=== PATIENT | female | born 1950 | race Caucasian/White ===

== ENCOUNTER 2017-05-01 17:40 | Inpatient (IN) | payer OTHER ==
[2017-05-01 18:37] LABS: BASOPHILS # (AUTO) 0.1 X10^3/uL (0.0-0.1); BASOPHILS % (AUTO) 1.4 % (0.2-1.0); EOSINOPHILS # (AUTO) 0.1 x10^3/uL (0.0-0.2); EOSINOPHILS % (AUTO) 2.7 % (0.9-2.9); HEMATOCRIT 34.2 % (36.0-47.0); HEMOGLOBIN 11.5 g/dL (12.0-16.0); LYMPHOCYTES # (AUTO) 1.3 X10^3/uL (1.3-2.9); MEAN CORPUSCULAR HEMOGLOBIN 29.6 pg (27.0-34.0); MEAN CORPUSCULAR HGB CONC 33.5 g/dL (33.0-35.0); MEAN CORPUSCULAR VOLUME 88.2 fL (80.0-100.0); MEAN PLATELET VOLUME 9.1 fL (7.4-11.0); MONOCYTES # (AUTO) 0.7 x10^3/uL (0.3-0.8); MONOCYTES % (AUTO) 13.4 % (0.0-13.0); NEUTROPHILS # (AUTO) 2.9 x10^3/uL (2.2-4.8); NEUTROPHILS % (AUTO) 57.5 % (42.0-75.0); PLATELET COUNT 84 X10^3/uL (150.0-450.0); RED BLOOD COUNT 3.88 X10^6/uL (3.5-5.4); RED CELL DISTRIBUTION WIDTH 14.8 % (11.6-16.5); WHITE BLOOD COUNT 5.1 X10^3/uL (3.6-10.0)
--- NOTE | 2017-05-01 18:52 | RAD ---
Examination: AP chest History: Low heart rate Comparison reference: 08/14/2016 Findings: Continued moderate cardiomegaly with pacemaker. Mild central pulmonary vascular congestion although interval improvement in this process has occurred since prior study. There is no evidence fo r consolidation, or pleural fluid or pneumothorax. Impression: Cardiomegaly, pacemaker, postsurgical findings, pulmonary vascular congestion. Reported By:
[2017-05-01 19:11] LABS: BLOOD UREA NITROGEN 24 mg/dL (7-18); CALCIUM 8.9 mg/dL (8.5-10.1); CARBON DIOXIDE 28.5 mmol/L (21-32); CHLORIDE 105 mmol/L (98-107); CREATININE 1.29 mg/dL (0.55-1.02); SODIUM 143 mmol/L (136-145); eGFR BLACK RACES 53 (>60); eGFR NON BLACK RACES 44 (>60)
--- NOTE | 2017-05-01 19:12 | DR.SOBA ---
HPI - Primary Care Physician Primary Care Physician: DANA - Complaints Chief Complaint:: PT. C/O SHORTNESS OF BREATH X 1 WEEK AND PAIN UNDER LEFT BREAST. PT. STATES SHE HAS NOT HAD ANY PAIN X 3 DAYS. PT. SHORT OF BREATH AT REST AND UPON EXERTION. - Source History Provided: Patient - Mode of Arrival Mode of Arrival: Ambulatory - Timing Onset of Chief Complaint: 04/24/17 PMH - PMH Past Medical History: Yes Past Medical History: CHF, COPD, Coronary Artery Disease, CVA, [place] Past Surgical History: Yes Surgical History: CABG/Valve Surgery, Other Past Surgical History Comment: PACEMAKER/DEFIBILLATOR - Family History History of Family Medical Conditions: Yes Family Medical History: Diabetes Mellitus, Coronary Artery Disease, Heart Failure - Social History Does patient currently use any type of tobacco product: No Have you used tobacco products in the last 12 months: No Type of Tobacco Use: None Does any household member use tobacco: No Alcohol Use: Rarely Do you use any recreational Drugs:: No Lives With: Alone Lives Where: Home - infectious screening In the last 2 months have you had wt loss of >10#?: NO Have you had fever, night sweats or hemotysis?: No Have you traveled outside the country in the last 6 months?: No Isolation: Standard PE - Vital Signs Vitals: Temperature 97.6 F Pulse Rate [Apical] 45 Pulse Rate 46 Respiratory Rate 30 Blood Pressure [Left Arm] 140/66 Blood Pressure [Right Arm] 103/63 Blood Pressure 160/60 O2 Sat by Pulse Oximetry 97 ROR - Labs Reviewed Result Diagrams: 05/01/17 18:25 05/01/17 18:25 Laboratory: WBC 5.1 X10^3/uL (3.6-10.0) 05/01/17 18:25 RBC 3.88 X10^6/uL (3.5-5.4) 05/01/17 18:25 Hgb 11.5 g/dL (12.0-16.0) L 05/01/17 18:25 Hct 34.2 % (36.0-47.0) L 05/01/17 18:25 MCV 88.2 fL (80.0-100.0) 05/01/17 18:25 MCH 29.6 pg (27.0-34.0) 05/01/17 18:25 MCHC 33.5 g/dL (33.0-35.0) 05/01/17 18:25 RDW 14.8 % (11.6-16.5) 05/01/17 18:25 Plt Count 84 X10^3/uL (150.0-450.0) L 05/01/17 18:25 MPV 9.1 fL (7.4-11.0) 05/01/17 18:25 Neut % 57.5 % (42.0-75.0) 05/01/17 18:25 Lymph % 25.0 % (21.0-51.0) 05/01/17 18:25 [place] % 13.4 % (0.0-13.0) H 05/01/17 18:25 Eos % 2.7 % (0.9-2.9) 05/01/17 18:25 Baso % 1.4 % (0.2-1.0) H 05/01/17 18:25 Neut # 2.9 x10^3/uL (2.2-4.8) 05/01/17 18:25 Lymph # 1.3 X10^3/uL (1.3-2.9) 05/01/17 18:25 [place] # 0.7 x10^3/uL (0.3-0.8) 05/01/17 18:25 Eos # 0.1 x10^3/uL (0.0-0.2) 05/01/17 18:25 Baso # 0.1 X10^3/uL (0.0-0.1) 05/01/17 18:25 Absolute Nucleated RBC 0.0 /100WBC 05/01/17 18:25 INR Target Range - 05/01/17 18:25 INR 1.93 (0.8-1.3) H 05/01/17 18:25 PTT 42.9 SECONDS (22.9-36.5) H 05/01/17 18:25 PTT Comment - 05/01/17 18:25 - Discharge Plan Condition: Stable - Follow ups/Referrals Follow ups/Referrals: PHILL CORTEZ [Primary Care Provider] - 3 days - Instructions
[2017-05-01 19:32] LABS: BILIRUBIN,URINE NEGATIVE (NEGATIVE); BLOOD/HEMOGLOBIN,URINE 3+ (NEGATIVE); GLUCOSE, URINE NEGATIVE (NEGATIVE); KETONES,URINE NEGATIVE (NEGATIVE); LEUKOCYTE ESTERASE ,URINE 1+ (NEGATIVE); NITRITES,URINE NEGATIVE (NEGATIVE); PROTEIN,URINE 3+ (NEGATIVE); UROBILINOGEN,URINE 3+ (NORMAL)
[2017-05-01 19:52] LABS: APPEARANCE,URINE HAZY (CLEAR); COLOR,URINE DARK YELLOW (YELLOW)
[2017-05-01 20:10] LABS: BACTERIA,URINE 2+ /HPF (NEGATIVE); SQUAMOUS EPITHELIAL CELL,UR FEW /HPF (NEGATIVE)
[2017-05-01 21:34] LABS: CREATINE KINASE 98 Units/L (26-192)
[2017-05-01 21:35] LABS: CREATINE KINASE MB < 1.0 ng/mL (0-4.0)
[2017-05-01 21:42] LABS: ALANINE AMINOTRANSFERASE < 6 Units/L (12-78); ALKALINE PHOSPHATASE 150 Units/L (46-116); ASPARTATE AMINO TRANSFERASE 33 Units/L (15-37); TOTAL PROTEIN 7.2 g/dL (6.4-8.2)
[2017-05-01] MEDS ORDERED: LASIX IVP ONE (21:59)
[2017-05-01] MEDS ORDERED: LASIX ONE (22:14)
[2017-05-01 23:38] VITALS: BMI 25.8
[2017-05-02 01:42] LABS: CKMB % 1.3 % (<4); CREATINE KINASE 75 Units/L (26-192); CREATINE KINASE MB < 1.0 ng/mL (0-4.0); TROPONIN I < 0.02 ng/mL (0-1.5)
[2017-05-02 07:09] LABS: BASOPHILS # (AUTO) 0.1 X10^3/uL (0.0-0.1); BASOPHILS % (AUTO) 1.6 % (0.2-1.0); EOSINOPHILS # (AUTO) 0.2 x10^3/uL (0.0-0.2); EOSINOPHILS % (AUTO) 4.1 % (0.9-2.9); HEMATOCRIT 32.5 % (36.0-47.0); HEMOGLOBIN 11.1 g/dL (12.0-16.0); LYMPHOCYTES # (AUTO) 1.1 X10^3/uL (1.3-2.9); LYMPHOCYTES % (AUTO) 29.2 % (21.0-51.0); MEAN CORPUSCULAR HEMOGLOBIN 29.8 pg (27.0-34.0); MEAN CORPUSCULAR VOLUME 87.6 fL (80.0-100.0); MEAN PLATELET VOLUME 9.4 fL (7.4-11.0); MONOCYTES # (AUTO) 0.6 x10^3/uL (0.3-0.8); MONOCYTES % (AUTO) 14.3 % (0.0-13.0); NEUTROPHILS % (AUTO) 50.8 % (42.0-75.0); PLATELET COUNT 70 X10^3/uL (150.0-450.0); RED BLOOD COUNT 3.71 X10^6/uL (3.5-5.4); RED CELL DISTRIBUTION WIDTH 14.6 % (11.6-16.5); WHITE BLOOD COUNT 3.9 X10^3/uL (3.6-10.0)
[2017-05-02 07:30] LABS: BLOOD UREA NITROGEN 22 mg/dL (7-18); CALCIUM 8.6 mg/dL (8.5-10.1); CHLORIDE 105 mmol/L (98-107); CREATININE 1.14 mg/dL (0.55-1.02); SODIUM 142 mmol/L (136-145); eGFR BLACK RACES > 60 (>60); eGFR NON BLACK RACES 50 (>60)
[2017-05-02 08:19] LABS: ALANINE AMINOTRANSFERASE 9 Units/L (12-78); ALBUMIN 3.6 g/dL (3.4-5.0); ALKALINE PHOSPHATASE 133 Units/L (46-116); ASPARTATE AMINO TRANSFERASE 25 Units/L (15-37); CKMB % 1.5 % (<4); CREATINE KINASE 65 Units/L (26-192); CREATINE KINASE MB < 1.0 ng/mL (0-4.0); TOTAL PROTEIN 6.4 g/dL (6.4-8.2); TROPONIN I < 0.02 ng/mL (0-1.5)
[2017-05-02] MEDS ORDERED: ROCEPHIN VIAL 1 GM 1 GM in NS 50 ML IV + SPIKE MINIBAG* 50 ML IV SCH (09:00)
[2017-05-02] MEDS: LOPRESSOR TAB 25 MG PO SCH ×3 (15:50→20:43)
[2017-05-02] MEDS ORDERED: NS 500 ML IV 500 ML IV PRN (16:07)
[2017-05-02] MEDS ORDERED: NS 500 ML IV 500 ML IV ONE (16:10)
[2017-05-02] MEDS ORDERED: ROCEPHIN 1 GM IV PREMIX 1 GM/50 ML IV.SOLN. IV ONE (16:11)
[2017-05-02] MEDS: ROCEPHIN 1 GM IV PREMIX 1 GM/50 ML IV.SOLN. IV SCH (16:14)
[2017-05-02] MEDS ORDERED: LASIX ONE (20:32)
[2017-05-02] MEDS ORDERED: RESTORIL CAP 15 MG PO PRN (20:35)
[2017-05-02] MEDS: K-DUR TAB 20 MEQ PO SCH (20:39)
[2017-05-02] MEDS: LASIX IVP SCH (20:47)
[2017-05-02] MEDS ORDERED: ZOCOR TAB 20 MG PO SCH (21:00)
[2017-05-02] MEDS ORDERED: COUMADIN TAB 5 MG PO SCH (21:00)
[2017-05-02] MEDS ORDERED: WARFARIN SODIUM 5 MG PO SCH (21:00)
[2017-05-02] MEDS ORDERED: SINEMET (PLAIN) 25/100 MG PO SCH (21:00)
[2017-05-02] MEDS ORDERED: COUMADIN PO SCH (21:00)
[2017-05-03] MEDS: LASIX IVP SCH (06:03)
[2017-05-03 06:15] LABS: BASOPHILS # (AUTO) 0.1 X10^3/uL (0.0-0.1); BASOPHILS % (AUTO) 1.2 % (0.2-1.0); EOSINOPHILS # (AUTO) 0.1 x10^3/uL (0.0-0.2); EOSINOPHILS % (AUTO) 2.9 % (0.9-2.9); HEMATOCRIT 32.5 % (36.0-47.0); HEMOGLOBIN 11.1 g/dL (12.0-16.0); LYMPHOCYTES # (AUTO) 1.2 X10^3/uL (1.3-2.9); LYMPHOCYTES % (AUTO) 24.1 % (21.0-51.0); MEAN CORPUSCULAR HEMOGLOBIN 29.9 pg (27.0-34.0); MEAN CORPUSCULAR HGB CONC 34.1 g/dL (33.0-35.0); MEAN CORPUSCULAR VOLUME 87.8 fL (80.0-100.0); MEAN PLATELET VOLUME 9.5 fL (7.4-11.0); MONOCYTES # (AUTO) 0.6 x10^3/uL (0.3-0.8); MONOCYTES % (AUTO) 12.8 % (0.0-13.0); NEUTROPHILS # (AUTO) 2.9 x10^3/uL (2.2-4.8); PLATELET COUNT 79 X10^3/uL (150.0-450.0); RED CELL DISTRIBUTION WIDTH 14.4 % (11.6-16.5)
[2017-05-03 06:25] LABS: ALANINE AMINOTRANSFERASE 6 Units/L (12-78); ALBUMIN 3.4 g/dL (3.4-5.0); ALKALINE PHOSPHATASE 138 Units/L (46-116); ASPARTATE AMINO TRANSFERASE 24 Units/L (15-37); BLOOD UREA NITROGEN 19 mg/dL (7-18); CARBON DIOXIDE 25.8 mmol/L (21-32); CHLORIDE 105 mmol/L (98-107); CREATININE 1.18 mg/dL (0.55-1.02); SODIUM 141 mmol/L (136-145); TOTAL PROTEIN 6.4 g/dL (6.4-8.2); eGFR BLACK RACES 58 (>60); eGFR NON BLACK RACES 48 (>60)
[2017-05-03] MEDS: LOPRESSOR TAB 25 MG PO SCH (09:00)
[2017-05-03] MEDS: K-DUR TAB 20 MEQ PO SCH (09:00)
[2017-05-03] MEDS: ROCEPHIN 1 GM IV PREMIX 1 GM/50 ML IV.SOLN. IV SCH (09:00)
[2017-05-03] MEDS ORDERED: LASIX PO SCH (09:00)
--- NOTE | 2017-05-03 16:20 | RAD ---
Examination: PA and lateral chest History: CHF Comparison reference 05/01/2017 Findings: Stable cardiomegaly with no change in position of pacing device. Pulmonary vascular distent ion. No evidence for superimposed pneumonia, pleural fluid or pneumothorax. Mitral valve prosthesis i s unchanged in position. Impression: Continued cardiomegaly, postsurgical findings, pulmonary vascular distention consistent w ith mild CHF. No interval change. Reported By:
[2017-05-03 18:01] VITALS: BP 108/59
[2017-05-04 10:26] LABS: CHOL/HDL RATIO 1.9 (0.0-5.0); CHOLESTEROL 78 mg/dL (0-200); HDL CHOLESTEROL 41 mg/dL (40-60); TRIGLYCERIDES 68 mg/dL (0-150)
== END 2017-05-03 18:28 | disposition short-term general hospital (02) | DRG 292 ==
LOC: ER 17:48 → ICU 21:46
PROVIDERS: ADMIT Internal Medicine; ATTEND Internal Medicine
DX: I50.9 Heart failure, unspecified (principal); R00.1 Bradycardia, unspecified; N39.0 Urinary tract infection, site not specified; R42 Dizziness and giddiness; R55 Syncope and collapse; R06.02 Shortness of breath; I25.10 Atherosclerotic heart disease of native coronary artery without angina pectoris; J44.9 Chronic obstructive pulmonary disease, unspecified; Z95.0 Presence of cardiac pacemaker; R94.31 Abnormal electrocardiogram [ECG] [EKG]; Z66 Do not resuscitate; Z79.01 Long term (current) use of anticoagulants
CPT/HCPCS: 36415; 71010; 71020; 80053; 80061; 81001; 82550; 82553; 83735; 84484; 85025; 85378; 85610; 85730; 87086; 87088; 87186; 93005; 93010; 96365; 96374; 99221; 99231; 99282; 99284; A4216; A4222; J0696; J1940

== ENCOUNTER 2017-09-01 11:15 | Emergency (ER) | payer OTHER ==
[2017-09-01 11:29] VITALS: BP 131/61; BMI 20.6
[2017-09-01] MEDS ORDERED: DEMEROL INJ IM ONE (11:38)
--- NOTE | 2017-09-01 11:38 | DR.GENAD ---
HPI - Complaint/Symptoms Chief Complaint Doctors Comments: Patient presents with complaint of her shingles is hurting. She developed the reactivation three weeks ago and was seen by her primary care physician. Chief Complaint:: " I had the shingles several weeks ago and im still hurting from the nerve pain in my back" - Source History Provided: Patient - Mode of Arrival Mode of Arrival: Ambulatory - Timing Onset of Chief Complaint: 08/18/17 PMH - PMH Past Medical History: Yes Past Medical History: CHF, COPD, Coronary Artery Disease, CVA, [place] Past Surgical History: Yes Surgical History: , CABG/Valve Surgery - Family History History of Family Medical Conditions: Yes Family Medical History: Diabetes Mellitus, Coronary Artery Disease, Heart Failure - Social History Does patient currently use any type of tobacco product: No Have you used tobacco products in the last 12 months: No Type of Tobacco Use: None Does any household member use tobacco: No Alcohol Use: None Do you use any recreational Drugs:: No Lives With: Family Lives Where: Home - infectious screening In the last 2 months have you had wt loss of >10#?: NO Have you had fever, night sweats or hemotysis?: No Have you traveled outside the country in the last 6 months?: No Isolation: Standard ROS - Review of Systems Eyes: No Symptoms Reported ENTM: No Symptoms Reported Respiratoy: No Symptoms Reported Cardiovascular: No Symptoms Reported Gastrointestinal/Abdominal: No Symptoms Reported Genitourinary: No Symptoms Reported Neurological: No Symptoms Reported Musculoskeletal: No Symptoms Reported Integumentary: Rash Hematologic/Lymphatic: No Symptoms Reported Endocrine: No Symptoms Reported Psychiatric: No Symptoms Reported All Other Systems: Reviewed and Negative PE - Vital Signs Vitals: Temperature 98 F Pulse Rate 88 Respiratory Rate 18 Blood Pressure [Left Arm] 108/59 Blood Pressure [Right Arm] 103/63 Blood Pressure 131/61 O2 Sat by Pulse Oximetry 95 - General Limitations: No Limitations General Appearance: Alert, In No Apparent Distress - Head Head Exam: Normal Inspection, Atraumatic - Eyes Eye exam: Normal Appearance, PERRL, EOMI - ENT ENT Exam: Normal Exam External Ear Exam: Normal External Inspection TM/Canal Exam: Bilateral Normal Nose Exam: Normal Nose Exam Mouth Exam: Normal Inspection Throat Exam: Normal Inspection - Neck Neck Exam: Normal Inspection, Full ROM - Chest Chest Inspection: Normal Inspection - Respiratory Respiratory Exam: Normal Lung Sounds Bilat Respiratory Exam: Bilateral Clear to Auscultation - Cardiovascular Cardiovascular Exam: Regular Rate, Normal Rhythm - Abdominal Exam Abdominal Exam: Normal Inspection, Normal Bowel Sounds Abdominal Tenderness: negative: RUQ, RLQ, LUQ, LLQ, Epigastrium, Suprapubic, Diffuse, Mild, Moderate, Severe, Other - Extremities Extremities Exam: Normal Inspection, Full ROM - Back Back Exam: Normal Inspection - Neurologic Neurological Exam: Alert, Oriented X3, CN II-XII Intact - Psychiatric Psychiatric Exam: Normal Affect - Skin Skin Exam: Warm, Dry, Intact, Rash (macular erythematous rash upper back dermatone pattern 13&14) Course - Treatment Treatment: Demerol - Reevaluation 1st: Improved - Diagnosis Discharge Problem: Need for shingles vaccine Shingles Qualifiers: Herpes zoster complications: without complications Qualified Code(s): B02.9 - Zoster without complications - Discharge Plan Condition: Stable - Follow ups/Referrals Follow ups/Referrals: PHILL CORTEZ [Primary Care Provider] - 3 days - Instructions
[2017-09-01] MEDS ORDERED: ZOFRAN INJ 4 MG VIAL IM ONE (11:39)
[2017-09-01] MEDS ORDERED: DEMEROL INJ ONE (11:43)
[2017-09-01] MEDS ORDERED: ZOFRAN INJ 4 MG VIAL ONE (11:50)
== END 2017-09-01 12:57 | disposition home or self-care (01) ==
LOC: ER 11:36
DX: R21 Rash and other nonspecific skin eruption (principal); B02.9 Zoster without complications
CPT/HCPCS: 96372; 99282; J2175; J2405

== ENCOUNTER 2024-11-29 13:59 | Observation (INO) ==
--- NOTE | 2024-11-29 14:09 | EKG ---
Test Reason : leg swollen Blood Pressure : */* mmHG Vent. Rate : 77 BPM Atrial Rate : * BPM P-R Int : * ms QRS Dur : 140 ms QT Int : 468 ms P-R-T Axes : * 189 138 degrees QTc Int : 529 ms Ventricular-paced rhythm Abnormal ECG When compared with ECG of 27-OCT-2024 15:12, No significant change was found Confirmed by Malik Hernandez MD ([id number]) on 11/30/2024 7:27:59 AM Referred By: Confirmed By: Malik Hernandez MD
--- NOTE | 2024-11-29 14:15 | DR.EXTPAIN ---
HPI Time seen Time Seen by Provider: 11/29/24 14:14 Complaint/Symptoms Chief Complaint Doctor Comments: 74 yo F, hx of CHF, COPD, afib, on coumadin, c/o increasing periph edema and dyspnea over the past 2d with increasing severity. Denies other complaints. Denies missing any doses of lasix. denies chest pain. PMH PMH Past Medical History: CHF, COPD, Coronary Artery Disease, CVA, Hypertension, Liver Disease, CT and Renal Disease Past Surgical History: Yes Surgical History: CABG/Valve Surgery Family History Family Medical History: CT and Coronary Artery Disease Social History Do you use any recreational Drugs:: No ROS Review of Systems Respiratoy: Short of Breath Cardiovascular: Edema All Other Systems: Reviewed and Negative PE Vital Signs Vitals: Vital Signs Temperature 98.1 F Pulse Rate 84 Pulse Rate 75 Pulse Rate 82 Pulse Rate 75 Pulse Rate 75 Pulse Rate 85 Pulse Rate 75 Pulse Rate 75 Pulse Rate 75 Pulse Rate 76 Pulse Rate 78 Pulse Rate 87 Respiratory Rate 16 Respiratory Rate 20 Respiratory Rate 17 Respiratory Rate 16 Respiratory Rate 12 Respiratory Rate 11 Respiratory Rate 16 Respiratory Rate 16 Respiratory Rate 22 Respiratory Rate 22 Blood Pressure 101/53 Blood Pressure 104/59 Blood Pressure 97/61 Blood Pressure 94/54 Blood Pressure 100/57 Blood Pressure 100/57 Blood Pressure 92/53 Blood Pressure 96/51 Blood Pressure 98/54 Blood Pressure 96/50 O2 Sat by Pulse Oximetry 96 O2 Sat by Pulse Oximetry 96 O2 Sat by Pulse Oximetry 97 O2 Sat by Pulse Oximetry 96 O2 Sat by Pulse Oximetry 94 O2 Sat by Pulse Oximetry 97 O2 Sat by Pulse Oximetry 95 O2 Sat by Pulse Oximetry 95 O2 Sat by Pulse Oximetry 91 O2 Sat by Pulse Oximetry 87 General Limitations: No Limitations General Appearance: Alert and In No Apparent Distress Head Head Exam: Normal Inspection Eyes Eye exam: Normal Appearance ENT ENT Exam: Normal Exam Neck Neck Exam: Normal Inspection Chest Chest Inspection: Normal Inspection Respiratory Respiratory Exam: Bilateral: Crackles Cardiovascular Cardiovascular Exam: Systolic Murmur Abdominal Exam Abdominal Exam: Normal Inspection, Normal Bowel Sounds and Soft Extremities Extremities Exam: Edema (3+ pitting edema in bilat lower ext) Back Back Exam: Normal Inspection Neurological Neurological Exam: Alert, Oriented X3 and CN II-XII Intact Psychiatric Psychiatric Exam: Normal Affect and Normal Mood Skin Skin Exam: Warm, Dry, Intact and Normal Color ROR Labs Reviewed Laboratory Results Reviewed?: Yes 11/29/24 14:18 06/24/25 14:18 Laboratory: WBC 4.3 X10^3/uL (3.6-10.0) 11/29/24 14:18 RBC 3.27 X10^6/uL (3.5-5.4) L 11/29/24 14:18 Hgb 9.3 g/dL (12.0-16.0) L 11/29/24 14:18 Hct 28.7 % (36.0-47.0) L 11/29/24 14:18 MCV 87.8 fL (80.0-100.0) 11/29/24 14:18 MCH 28.4 pg (27.0-34.0) 11/29/24 14:18 MCHC 32.4 g/dL (33.0-35.0) L 11/29/24 14:18 RDW 19.5 % (11.6-16.5) H 11/29/24 14:18 Plt Count 166 X10^3/uL (150.0-450.0) 11/29/24 14:18 MPV 9.8 fL (7.4-11.0) 11/29/24 14:18 Neut % (Auto) 63.1 % (42.0-75.0) 11/29/24 14:18 Lymph % (Auto) 16.7 % (21.0-51.0) L 11/29/24 14:18 [place] % (Auto) 11.5 % (0.0-13.0) 11/29/24 14:18 Eos % (Auto) 4.5 % (0.9-2.9) H 11/29/24 14:18 Baso % (Auto) 4.2 % (0.2-1.0) H 11/29/24 14:18 Neut # (Auto) 2.7 x10^3/uL (2.2-4.8) 11/29/24 14:18 Lymph # (Auto) 0.7 X10^3/uL (1.3-2.9) L 11/29/24 14:18 [place] # (Auto) 0.5 x10^3/uL (0.3-0.8) 11/29/24 14:18 Eos # (Auto) 0.2 x10^3/uL (0.0-0.2) 11/29/24 14:18 Baso # (Auto) 0.2 X10^3/uL (0.0-0.1) H 11/29/24 14:18 Absolute Nucleated RBC 0.0 /100WBC 11/29/24 14:18 PT 29.6 SECONDS (11.8-14.3) 11/29/24 14:18 INR Target Range - 11/29/24 14:18 INR 2.78 (0.8-1.3) H 11/29/24 14:18 APTT 47.4 SECONDS (22.9-36.5) H 11/29/24 14:18 PTT Comment - 11/29/24 14:18 Sodium 139 mmol/L (136-145) 11/29/24 14:18 Corrected Sodium TNP 11/29/24 14:18 Potassium 3.7 mmol/L (3.5-5.1) 11/29/24 14:18 Chloride 106 mmol/L (98-107) 11/29/24 14:18 Carbon Dioxide 26.8 mmol/L (21-32) 11/29/24 14:18 BUN 21 mg/dL (7-18) H 11/29/24 14:18 Creatinine 1.15 mg/dL (0.55-1.02) H 11/29/24 14:18 Est GFR (MDRD) Af Amer 59 (>60) 11/29/24 14:18 Est GFR (MDRD) Non-Af 49 (>60) L 11/29/24 14:18 Glucose 99 mg/dL (65-99) 11/29/24 14:18 Calcium 7.5 mg/dL (8.5-10.1) L 11/29/24 14:18 Corrected Calcium 9.5 mg/dL (8.5-10.1) 11/29/24 14:18 Magnesium 2.1 mg/dL (2.0-2.9) 11/29/24 14:18 Total Bilirubin 1.20 mg/dL (0.2-1.0) H 11/29/24 14:18 AST 39 Units/L (15-37) H 11/29/24 14:18 ALT 26 Units/L (12-78) 11/29/24 14:18 Alkaline Phosphatase 173 Units/L (46-116) H 11/29/24 14:18 Creatine Kinase 73 Units/L (26-192) 11/29/24 14:18 Troponin I High Sens 12.4 ng/L (4.0-60.0) 11/29/24 14:18 B-Natriuretic Peptide 299 pg/mL (0-79) H 11/29/24 14:18 Total Protein 5.4 g/dL (6.4-8.2) L 11/29/24 14:18 Albumin 1.5 g/dL (3.4-5.0) L 11/29/24 14:18 Globulin 3.9 g/dL (2.5-4.5) 11/29/24 14:18 Albumin/Globulin Ratio 0.4 Ratio (1.1-2.1) L 11/29/24 14:18 Opioid Opioid Risk Tool Age (Trerence box if 16-45): No History of Preadolescent Sexual Abuse: No Total: 0 Total Score Risk Category: Low Risk Copyright: Junito EDWARDS predicting aberrant behaviors Discharge Plan Diagnosis Discharge Problem: Acute exacerbation of CHF (congestive heart failure), Pulmonary edema, Edema, peripheral Discharge Plan Patient Disposition: ADMITTED INPATIENT Condition: Stable Prescriptions: No Action potassium chloride 10 mEq capsule, extended release 10 meq PO QDAY Qty: 90 3RF simvastatin 20 mg tablet 20 mg PO QPM Qty: 90 3RF metoprolol tartrate 25 mg tablet 12.5 tab PO BID 90 Days Rx Instructions: FreeTextSi/2 Tablet two times daily; Note: For high blood pressure; Refills: 3; Provider: Elijah Kyle warfarin 5 mg tablet 5 mg PO QPM Qty: 90 3RF spironolactone 25 mg tablet 12.5 mg PO BID amiodarone 200 mg Tablet 400 mg PO BID Rx Instructions: take 2 tablets twice daily levothyroxine [Synthroid] 100 mcg Tablet 100 mcg PO DAILY@0630 Qty: 30 0RF furosemide 20 mg tablet 20 mg PO QDAY Health Concerns: Post Hospitalization: new medications and changes needed to prevent readmission or further decline. Pt educated and given instructions on all concerns. Plan of Treatment: Continue with present treatment and follow up plan. Pt is to keep follow up appointment as instructed and take medications as ordered. Orders to Discharge Patient Discharge Orders: Transfer (Routine); Ordered 11/29/24 Ordered By: Ricky Mcelroy Follow ups/Referrals Follow ups/Referrals: MD,Misc [Primary Care Provider] - 3 days Instructions Stand Alone Forms: Find Help Web Site, Post Hospital Follow Up Care Print Language: TRINIDADIAN
[2024-11-29 14:34] LABS: BASOPHILS # (AUTO) 0.2 X10^3/uL (0.0-0.1); BASOPHILS % (AUTO) 4.2 % (0.2-1.0); EOSINOPHILS # (AUTO) 0.2 x10^3/uL (0.0-0.2); EOSINOPHILS % (AUTO) 4.5 % (0.9-2.9); HEMATOCRIT 28.7 % (36.0-47.0); HEMOGLOBIN 9.3 g/dL (12.0-16.0); LYMPHOCYTES # (AUTO) 0.7 X10^3/uL (1.3-2.9); LYMPHOCYTES % (AUTO) 16.7 % (21.0-51.0); MEAN CORPUSCULAR HEMOGLOBIN 28.4 pg (27.0-34.0); MEAN CORPUSCULAR HGB CONC 32.4 g/dL (33.0-35.0); MEAN CORPUSCULAR VOLUME 87.8 fL (80.0-100.0); MEAN PLATELET VOLUME 9.8 fL (7.4-11.0); MONOCYTES # (AUTO) 0.5 x10^3/uL (0.3-0.8); MONOCYTES % (AUTO) 11.5 % (0.0-13.0); NEUTROPHILS # (AUTO) 2.7 x10^3/uL (2.2-4.8); NEUTROPHILS % (AUTO) 63.1 % (42.0-75.0); PLATELET COUNT 166 X10^3/uL (150.0-450.0); RED BLOOD COUNT 3.27 X10^6/uL (3.5-5.4); RED CELL DISTRIBUTION WIDTH 19.5 % (11.6-16.5); WHITE BLOOD COUNT 4.3 X10^3/uL (3.6-10.0)
[2024-11-29 14:39] LABS: INR 2.78 (0.8-1.3)
[2024-11-29 14:46] LABS: ALANINE AMINOTRANSFERASE 26 Units/L (12-78); ALBUMIN 1.5 g/dL (3.4-5.0); ALKALINE PHOSPHATASE 173 Units/L (46-116); ASPARTATE AMINO TRANSFERASE 39 Units/L (15-37); BLOOD UREA NITROGEN 21 mg/dL (7-18); CALCIUM 7.5 mg/dL (8.5-10.1); CARBON DIOXIDE 26.8 mmol/L (21-32); CHLORIDE 106 mmol/L (98-107); COR CA(FOR HYPOALB) 9.5 mg/dL (8.5-10.1); CREATINE KINASE 73 Units/L (26-192); CREATININE 1.15 mg/dL (0.55-1.02); GLUCOSE 99 mg/dL (65-99); MAGNESIUM 2.1 mg/dL (2.0-2.9); POTASSIUM 3.7 mmol/L (3.5-5.1); SODIUM 139 mmol/L (136-145); TOTAL PROTEIN 5.4 g/dL (6.4-8.2); eGFR NON BLACK RACES 49 (>60)
[2024-11-29] MEDS: LASIX IVP ONE (15:45)
[2024-11-29] MEDS: NS 500 ML IV 500 ML IV SCH (15:47)
[2024-11-29] MEDS: LASIX IVP SCH (16:58)
[2024-11-29] MEDS: NS 1,000 ML IV 1,000 ML IV SCH (17:11)
[2024-11-29 17:52] VITALS: BMI 27.6
[2024-11-29] MEDS ORDERED: CORDARONE TAB 200 MG PO SCH (21:00)
[2024-11-29] MEDS: ZOCOR TAB 20 MG PO SCH (22:12)
[2024-11-29] MEDS: ALDACTONE TAB 25 MG PO SCH (22:12)
[2024-11-29] MEDS: CORDARONE TAB 200 MG PO SCH (22:12)
[2024-11-29] MEDS: LOPRESSOR TAB 25 MG PO SCH (23:03)
--- NOTE | 2024-11-30 00:04 | RAD ---
EXAM: FRONTAL VIEW CHEST X-RAY HISTORY: Short of breath COMPARISON: 10/28/2024 FINDINGS: Midl ine sternotomy wires with implantable cardiac device is again seen without evidence of lead wire fractures. Prosthetic valve is again noted. Multifocal alveolar airspace disease is seen in the bilateral lower lung zones with associated small left pleural effusion. No right-sided pleural effusion is seen. The heart size is enlarged but stable from prior study The mediastinum is unremarkable. There is no gross evidence of pneumothorax. The trachea is midline. IMPRESSION: 1. Midline sternotomy wires with implantable cardiac device is again seen without evidence of lead wire fractures. Prosthetic valve is again noted. 2. Multifocal alveolar airspace disease is seen in the bilateral lower lung zones with associated small left pleural effusion. No right-sided pleural effusion is seen. 3. The heart size is enlarged but stable from prior study THIS IS AN ELECTRONICALLY VERIFIED FINAL REPORT 11/30/2024 12:00 AM - Electronically signed by Min Longoria MD
[2024-11-30 05:03] LABS: RED CELL DISTRIBUTION WIDTH 19.5 % (11.6-16.5); WHITE BLOOD COUNT 4.5 X10^3/uL (3.6-10.0)
[2024-11-30 05:05] LABS: INR 3.03 (0.8-1.3)
[2024-11-30 05:20] LABS: ALANINE AMINOTRANSFERASE 24 Units/L (12-78); ALBUMIN 1.3 g/dL (3.4-5.0); ALKALINE PHOSPHATASE 162 Units/L (46-116); ASPARTATE AMINO TRANSFERASE 34 Units/L (15-37); BLOOD UREA NITROGEN 21 mg/dL (7-18); CALCIUM 7.1 mg/dL (8.5-10.1); CHLORIDE 106 mmol/L (98-107); CHOLESTEROL 115 mg/dL (0-200); COR CA(FOR HYPOALB) 9.3 mg/dL (8.5-10.1); CREATINE KINASE 54 Units/L (26-192); CREATININE 1.08 mg/dL (0.55-1.02); GLUCOSE 98 mg/dL (65-99); HDL CHOLESTEROL 57 mg/dL (40-60); MAGNESIUM 1.9 mg/dL (2.0-2.9); POTASSIUM 3.5 mmol/L (3.5-5.1); SODIUM 140 mmol/L (136-145); TOTAL PROTEIN 4.9 g/dL (6.4-8.2); TRIGLYCERIDES 48 mg/dL (0-150); eGFR NON BLACK RACES 52 (>60)
[2024-11-30 05:21] LABS: BASOPHILS # (AUTO) 0.2 X10^3/uL (0.0-0.1); BASOPHILS % (AUTO) 3.8 % (0.2-1.0); EOSINOPHILS # (AUTO) 0.2 x10^3/uL (0.0-0.2); EOSINOPHILS % (AUTO) 5.5 % (0.9-2.9); HEMATOCRIT 26.3 % (36.0-47.0); HEMOGLOBIN 8.7 g/dL (12.0-16.0); LYMPHOCYTES # (AUTO) 0.6 X10^3/uL (1.3-2.9); LYMPHOCYTES % (AUTO) 13.5 % (21.0-51.0); MEAN CORPUSCULAR HEMOGLOBIN 29.1 pg (27.0-34.0); MEAN CORPUSCULAR HGB CONC 33.3 g/dL (33.0-35.0); MEAN CORPUSCULAR VOLUME 87.4 fL (80.0-100.0); MEAN PLATELET VOLUME 10.4 fL (7.4-11.0); MONOCYTES # (AUTO) 0.6 x10^3/uL (0.3-0.8); MONOCYTES % (AUTO) 13.8 % (0.0-13.0); NEUTROPHILS # (AUTO) 2.8 x10^3/uL (2.2-4.8); NEUTROPHILS % (AUTO) 63.4 % (42.0-75.0); PLATELET COUNT 143 X10^3/uL (150.0-450.0)
--- NOTE | 2024-11-30 05:29 | EKG ---
Test Reason : CHF exacerbation, dyspnea Blood Pressure : */* mmHG Vent. Rate : 62 BPM Atrial Rate : * BPM P-R Int : * ms QRS Dur : 150 ms QT Int : 492 ms P-R-T Axes : * 188 114 degrees QTc Int : 499 ms Ventricular-paced rhythm Abnormal ECG When compared with ECG of 29-NOV-2024 14:08, (Unconfirmed) No significant change was found Confirmed by Malik Hernandez MD ([id number]) on 11/30/2024 7:24:44 AM Referred By: Confirmed By: Malik Hernandez MD
[2024-11-30 05:38] LABS: CARBON DIOXIDE 27.5 mmol/L (21-32)
[2024-11-30] MEDS: SYNTHROID 100 mcg TAB PO SCH (06:01)
[2024-11-30] MEDS ORDERED: CONSULT PHARMACY - POTASSIUM & MAGNESIUM XX SCH (07:00)
--- NOTE | 2024-11-30 08:40 | RAD ---
EXAM: CHEST, 1 VIEW HISTORY: PULMONARY EDEMA; ND, CAD, HTN, RENAL DISEASE, LIVER DISEASE, CVA, COPD, CHF SX: CABG/VALVE SURG, PACEMAKER COMPARISON: 11/29/2024 TECHNIQUE: AP portable FINDINGS: Left-sided ICD/pacer leads in place. Stable prominent cardiac silhouette. Pulmonary vascular engorgement. Increased hazy perihilar and bibasilar opacities. Layering small pleural effusions. No visible pneumothorax. IMPRESSION: Mild increased pulmonary edema. Layering small pleural effusions. THIS IS AN ELECTRONICALLY VERIFIED FINAL REPORT 11/30/2024 8:37 AM - Electronically signed by Saroj Gomez MD
--- NOTE | 2024-11-30 10:52 | DR.H&P ---
H&P History & Physical for Day of: H&P Date: 11/30/24 Chief Complaint Chief Complaint: sob, leg edema History of Present Illness History of Present Illness: Patient is a 74-year-old female with a past medical history of CAD, COPD, atrial fibrillation, valve replacement, hypertension, CKD and COPD on chronic oxygen presented with worsening shortness of breath and lower extremity edema. ER workup showed low blood pressure, BNP 299, cardiac enzymes negative. Chest x-ray was concerning for pleural effusions. She was started on gentle hydration and IV Lasix. Patient's blood pressure has been systolic 90-100. She is currently on 2 L nasal cannula. Patient was admitted for further evaluation. Labs/imaging reviewed: - WBC 4.5 hemoglobin 8.7 platelet 143 potassium 3.5 creatinine 1.08 mag 1.9 INR 3.03 BNP 299 troponin x 3 negative - Chest x-ray worsening pleural effusions Plan: Continue telemetry, resume warfarin. Stop IV fluids. Change Lasix to 20 mg IV daily. Continue metoprolol 12.5 mg twice daily. Hold Aldactone for now. Monitor blood pressure closely. Order Echo. Strict I's and O's, daily weight. Replace electrolytes as per protocol. Resume other home medications. Wean O2 as tolerated. Physical therapy as tolerated. Monitor a.m. labs and imaging. Time spent for clinical assessment, reviewing labs and imaging, physical exam, decision making and documentation greater than 45 minutes. Past Medical History Past Medical History: CHF, COPD, Coronary Artery Disease, CVA, Hypertension, Liver Disease, [place] and Renal Disease Additional Medical History: Coumadin Therapy, Cataracts, TIA, Muscle Weakness, Back Pain, Degenerative Disc Disease, Previous Blood Transfusion Past Surgical History Surgical History: and CABG/Valve Surgery Additional Surgical History: Pacemaker Family History Family Medical History: [place] and Coronary Artery Disease Social History Does patient currently use any type of tobacco product: No Have you used tobacco products in the last 12 months: No Type of Tobacco Use: None Does any household member use tobacco: No Alcohol Use: None Drug Use: None Medications Home Medications: Home Medications Medication Instructions Recorded Confirmed Type metoprolol tartrate 25 mg tablet 12.5 tab PO BID 90 da ys 07/14/22 11/29/24 History amiodarone 200 mg tablet 200 mg PO BID 10/27/2411/29 History spironolactone 25 mg tablet 12.5 mg PO DAILY 10/27/24 11/29/24 History furosemide 20 mg tablet 20 mg PO QDAY 11/29/2411/29 History Allergies Allergies Allergy/AdvReac Type Severity Reaction Status Date / Time No Known Drug Allergies Allergy Unknown Verified 10/27/24 15:24 Labs 11/30/24 04:44 11/30/24 04:44 Labs: Laboratory WBC 4.5 X10^3/uL (3.6-10.0) 11/30/24 04:44 RBC 3.00 X10^6/uL (3.5-5.4) L 11/30/24 04:44 Hgb 8.7 g/dL (12.0-16.0) L 11/30/24 04:44 Hct 26.3 % (36.0-47.0) L 11/30/24 04:44 MCV 87.4 fL (80.0-100.0) 11/30/24 04:44 MCH 29.1 pg (27.0-34.0) 11/30/24 04:44 MCHC 33.3 g/dL (33.0-35.0) 11/30/24 04:44 RDW 19.5 % (11.6-16.5) H 11/30/24 04:44 Plt Count 143 X10^3/uL (150.0-450.0) L 11/30/24 04:44 MPV 10.4 fL (7.4-11.0) 11/30/24 04:44 Neut % (Auto) 63.4 % (42.0-75.0) 11/30/24 04:44 Lymph % (Auto) 13.5 % (21.0-51.0) L 11/30/24 04:44 [place] % (Auto) 13.8 % (0.0-13.0) H 11/30/24 04:44 Eos % (Auto) 5.5 % (0.9-2.9) H 11/30/24 04:44 Baso % (Auto) 3.8 % (0.2-1.0) H 11/30/24 04:44 Neut # (Auto) 2.8 x10^3/uL (2.2-4.8) 11/30/24 04:44 Lymph # (Auto) 0.6 X10^3/uL (1.3-2.9) L 11/30/24 04:44 [place] # (Auto) 0.6 x10^3/uL (0.3-0.8) 11/30/24 04:44 Eos # (Auto) 0.2 x10^3/uL (0.0-0.2) 11/30/24 04:44 Baso # (Auto) 0.2 X10^3/uL (0.0-0.1) H 11/30/24 04:44 Absolute Nucleated RBC 0.1 /100WBC 11/30/24 04:44 PT 31.6 SECONDS (11.8-14.3) 11/30/24 04:44 INR Target Range - 11/30/24 04:44 INR 3.03 (0.8-1.3) H 11/30/24 04:44 APTT 51.2 SECONDS (22.9-36.5) H 11/30/24 04:44 PTT Comment - 11/30/24 04:44 Sodium 140 mmol/L (136-145) 11/30/24 04:44 Corrected Sodium TNP 11/30/24 04:44 Potassium 3.5 mmol/L (3.5-5.1) 11/30/24 04:44 Chloride 106 mmol/L (98-107) 11/30/24 04:44 Carbon Dioxide 27.5 mmol/L (21-32) 11/30/24 04:44 BUN 21 mg/dL (7-18) H 11/30/24 04:44 Creatinine 1.08 mg/dL (0.55-1.02) H 11/30/24 04:44 Est GFR (MDRD) Af Amer > 60 (>60) 11/30/24 04:44 Est GFR (MDRD) Non-Af 52 (>60) L 11/30/24 04:44 Glucose 98 mg/dL (65-99) 11/30/24 04:44 Calcium 7.1 mg/dL (8.5-10.1) L 11/30/24 04:44 Corrected Calcium 9.3 mg/dL (8.5-10.1) 11/30/24 04:44 Magnesium 1.9 mg/dL (2.0-2.9) L 11/30/24 04:44 Total Bilirubin 0.70 mg/dL (0.2-1.0) 11/30/24 04:44 AST 34 Units/L (15-37) 11/30/24 04:44 ALT 24 Units/L (12-78) 11/30/24 04:44 Alkaline Phosphatase 162 Units/L (46-116) H 11/30/24 04:44 Creatine Kinase 54 Units/L (26-192) 11/30/24 04:44 Troponin I High Sens 11.3 ng/L (4.0-60.0) 11/30/24 04:44 B-Natriuretic Peptide 299 pg/mL (0-79) H 11/29/24 14:18 Total Protein 4.9 g/dL (6.4-8.2) L 11/30/24 04:44 Albumin 1.3 g/dL (3.4-5.0) L 11/30/24 04:44 Globulin 3.6 g/dL (2.5-4.5) 11/30/24 04:44 Albumin/Globulin Ratio 0.4 Ratio (1.1-2.1) L 11/30/24 04:44 Triglycerides 48 mg/dL (0-150) 11/30/24 04:44 Cholesterol 115 mg/dL (0-200) 11/30/24 04:44 LDL Cholesterol, Calc 48 mg/dL (0-100) 11/30/24 04:44 HDL Cholesterol 57 mg/dL (40-60) 11/30/24 04:44 Cholesterol/HDL Ratio 2.0 (0.0-5.0) 11/30/24 04:44 Review of Systems Constitutional: Weakness Eyes: No Symptoms Reported ENT: No Symptoms Reported Respiratory: SOB with Excertion Cardiovascular: Orthopnea and Edema Gastrointestinal: No Symptoms Reported Genitourinary: No Symptoms Reported Musculoskeletal: No Symptoms Reported Skin: No Symptoms Reported Neurological: No Symptoms Reported Physical Exam Vital Signs: Vital Signs Temperature 98.5 F Temperature 97.8 F Pulse Rate [Radial] 80 Pulse Rate [Radial] 73 Respiratory Rate 18 Respiratory Rate 16 Blood Pressure [Left Arm] 101/51 Blood Pressure [Left Arm] 101/56 O2 Sat by Pulse Oximetry 97 O2 Sat by Pulse Oximetry 97 Oriented: Normal Throat: Dry Respiratory: Rales Throughout Cardiovascular: Edema Auscultation: Bowel Sounds: Normal Palpation: Normal Tenderness: Normal Skin: Normal Musculoskeletal: Leg (swelling/pain) Psychiatric: Normal Mood Description: Calm Affect: Normal Speech Pattern: Clear and Appropriate Assessment/Plan (1) Hypotension: Qualifiers: Hypotension type: idiopathic hypotension Qualified Code(s): I95.0 - Idiopathic hypotension Status: Acute (2) Acute exacerbation of CHF (congestive heart failure): Qualifiers: Heart failure type: systolic Qualified Code(s): I50.23 - Acute on chronic systolic (congestive) heart failure Status: Acute (3) COPD (chronic obstructive pulmonary disease): Qualifiers: COPD type: unspecified COPD Qualified Code(s): J44.9 - Chronic obstructive pulmonary disease, unspecified Status: Chronic (4) A-fib: Qualifiers: Atrial fibrillation type: unspecified chronic Qualified Code(s): I48.20 - Chronic atrial fibrillation, unspecified Status: Chronic (5) Mechanical heart valve present: Status: Chronic (6) History of CVA (cerebrovascular accident): Status: Chronic (7) DDD (degenerative disc disease): Qualifiers: Spinal region: lumbosacral Disc-related pain type: unspecified whether pain present Qualified Code(s): M51.379 - Other intervertebral disc degeneration, lumbosacral region without mention of lumbar back pain or lower extremity pain Status: Chronic (8) Edema, peripheral: Status: Chronic Review H&P Reviewed: Yes Patient was examined?: Yes
[2024-11-30] MEDS: K-DUR TAB 20 MEQ PO SCH (11:02)
[2024-11-30] MEDS: KLOR-CON 10 MEQ TAB PO SCH (11:03)
[2024-11-30] MEDS: MAG-OX TAB PO SCH (11:03)
[2024-11-30] MEDS: COUMADIN TAB 5 MG (JANTOVEN) PO SCH (21:21)
[2024-12-01 04:26] VITALS: RESP 20
--- NOTE | 2024-12-01 05:18 | RAD ---
EXAM: CHEST, 1 VIEW HISTORY: SOB ; AL, CAD, HTN, RENAL DISEASE, LIVER DISEASE, CVA, COPD, CHF SX: CABG/VALVE SURG, PACEMAKER COMPARISON: 11/30/2024 FINDINGS: T he trachea is midline. The cardiac silhouette is mildly enlarged. Median sternotomy wires present. Prosthetic heart valve. Permanent pacing device.. Pulmonary vascular congestion and bibasilar opacities with small bilateral pleural effusions again noted.. The bony thorax is unremarkable. IMPRESSION: Stable portable chest THIS IS AN ELECTRONICALLY VERIFIED FINAL REPORT 12/01/2024 5:14 AM - Electronically signed by Yusef White MD
[2024-12-01 06:24] LABS: BASOPHILS # (AUTO) 0.2 X10^3/uL (0.0-0.1); BASOPHILS % (AUTO) 4.1 % (0.2-1.0); EOSINOPHILS # (AUTO) 0.3 x10^3/uL (0.0-0.2); EOSINOPHILS % (AUTO) 6.4 % (0.9-2.9); HEMATOCRIT 27.1 % (36.0-47.0); LYMPHOCYTES # (AUTO) 0.5 X10^3/uL (1.3-2.9); LYMPHOCYTES % (AUTO) 12.5 % (21.0-51.0); MEAN CORPUSCULAR HEMOGLOBIN 29.2 pg (27.0-34.0); MEAN CORPUSCULAR HGB CONC 33.2 g/dL (33.0-35.0); MEAN CORPUSCULAR VOLUME 87.9 fL (80.0-100.0); MEAN PLATELET VOLUME 10.3 fL (7.4-11.0); MONOCYTES # (AUTO) 0.4 x10^3/uL (0.3-0.8); NEUTROPHILS # (AUTO) 2.9 x10^3/uL (2.2-4.8); PLATELET COUNT 141 X10^3/uL (150.0-450.0); RED BLOOD COUNT 3.08 X10^6/uL (3.5-5.4); RED CELL DISTRIBUTION WIDTH 19.8 % (11.6-16.5); WHITE BLOOD COUNT 4.3 X10^3/uL (3.6-10.0)
[2024-12-01 06:29] LABS: INR 2.97 (0.8-1.3)
[2024-12-01 06:44] LABS: ALANINE AMINOTRANSFERASE 23 Units/L (12-78); ALBUMIN 1.3 g/dL (3.4-5.0); ALKALINE PHOSPHATASE 152 Units/L (46-116); ASPARTATE AMINO TRANSFERASE 30 Units/L (15-37); BLOOD UREA NITROGEN 20 mg/dL (7-18); CALCIUM 7.2 mg/dL (8.5-10.1); CARBON DIOXIDE 24.3 mmol/L (21-32); CHLORIDE 108 mmol/L (98-107); COR CA(FOR HYPOALB) 9.4 mg/dL (8.5-10.1); COR NA(FOR HYPERGLY) 140 mmol/L (136-145); CREATININE 1.02 mg/dL (0.55-1.02); GLUCOSE 111 mg/dL (65-99); SODIUM 140 mmol/L (136-145); eGFR NON BLACK RACES 56 (>60)
[2024-12-01] MEDS: LASIX IVP SCH (08:19)
[2024-12-01 08:30] VITALS: BP 101/59; PULSE 76; TEMP 97.6; O2SAT 97
--- NOTE | 2024-12-06 15:55 | W.DIS.FURT ---
Summary of Discharge Discharge Summary of Date Date of Exam: 12/01/24 Admission Date Date of Admission: 11/29/24 Admission Diagnosis Patient Problems (Updated 12/06/24 @ 11:07 by Vianney Cisneros MD) Edema, peripheral (Chronic) R60.0 Pulmonary edema (Acute) J81.1 Acute exacerbation of CHF (congestive heart failure) (Acute) I50.9 Hospital Course: Patient is a 74-year-old female with a past medical history of CAD, COPD, atrial fibrillation, valve replacement, hypertension, CKD and COPD admitted for CHF exacerbation. This morning she is resting comfortably in bed. She reports no events overnight. She reports her breathing is back to baseline and is doing well and would like to go home today. She has received IV Lasix in the hospital. She has responded well to treatments. Echo revealed EF 50-55%. Patient was discharged home in stable condition. She was prescribed p.o. Lasix 40 daily. She is instructed to follow-up with her PCP in 1 week. Vital Signs: Vital Signs (72 hours) 11/29/24 14:00 11/29/24 14:07 11/29/24 14:15 Temperature 98.1 F Pulse Rate 87 78 76 Pulse Rate [Radial] Respiratory Rate 22 22 Blood Pressure 96/50 Blood Pressure [Left Arm] Blood Pressure [Right Arm] O2 Sat by Pulse Oximetry 87 L 91 L Oxygen Delivery Method Room Air Oxygen Flow Rate FIO2% 11/29/24 14:28 11/29/24 14:28 11/29/24 14:30 Temperature Pulse Rate 75 75 Pulse Rate [Radial] Respiratory Rate 16 16 Blood Pressure 98/54 Blood Pressure [Left Arm] Blood Pressure [Right Arm] O2 Sat by Pulse Oximetry 95 95 Oxygen Delivery Method Nasal Cannula Nasal Cannula Oxygen Flow Rate 2 2 FIO2% 11/29/24 14:30 11/29/24 14:45 11/29/24 14:45 Temperature Pulse Rate 75 Pulse Rate [Radial] Respiratory Rate 11 L Blood Pressure 96/51 92/53 Blood Pressure [Left Arm] Blood Pressure [Right Arm] O2 Sat by Pulse Oximetry 97 Oxygen Delivery Method Nasal Cannula Oxygen Flow Rate 2 FIO2% 11/29/24 15:00 11/29/24 15:00 11/29/24 15:00 Temperature Pulse Rate 85 Pulse Rate [Radial] Respiratory Rate 12 Blood Pressure 100/57 100/57 Blood Pressure [Left Arm] Blood Pressure [Right Arm] O2 Sat by Pulse Oximetry 94 L Oxygen Delivery Method Oxygen Flow Rate FIO2% 11/29/24 15:15 11/29/24 15:15 11/29/24 15:30 Temperature Pulse Rate 75 Pulse Rate [Radial] Respiratory Rate 16 Blood Pressure 94/54 97/61 Blood Pressure [Left Arm] Blood Pressure [Right Arm] O2 Sat by Pulse Oximetry 96 Oxygen Delivery Method Oxygen Flow Rate FIO2% 11/29/24 15:30 11/29/24 15:45 11/29/24 15:45 Temperature Pulse Rate 75 82 Pulse Rate [Radial] Respiratory Rate 17 20 Blood Pressure 104/59 Blood Pressure [Left Arm] Blood Pressure [Right Arm] O2 Sat by Pulse Oximetry 97 96 Oxygen Delivery Method Oxygen Flow Rate FIO2% 11/29/24 16:00 11/29/24 16:00 11/29/24 16:20 Temperature Pulse Rate 75 84 Pulse Rate [Radial] Respiratory Rate 16 Blood Pressure 101/53 Blood Pressure [Left Arm] Blood Pressure [Right Arm] O2 Sat by Pulse Oximetry 96 Oxygen Delivery Method Oxygen Flow Rate FIO2% 11/29/24 16:30 11/29/24 16:30 11/29/24 16:44 Temperature Pulse Rate 76 75 Pulse Rate [Radial] Respiratory Rate 17 19 Blood Pressure 98/56 Blood Pressure [Left Arm] Blood Pressure [Right Arm] O2 Sat by Pulse Oximetry Oxygen Delivery Method Oxygen Flow Rate FIO2% 11/29/24 16:45 11/29/24 16:49 11/29/24 16:55 Temperature Pulse Rate Pulse Rate [Radial] Respiratory Rate 19 Blood Pressure 105/60 Blood Pressure [Left Arm] Blood Pressure [Right Arm] O2 Sat by Pulse Oximetry Oxygen Delivery Method Nasal Cannula Oxygen Flow Rate 2 FIO2% 28 11/29/24 17:31 11/29/24 19:00 11/29/24 20:00 Temperature 97.7 F 98.0 F Pulse Rate Pulse Rate [Radial] 79 76 Respiratory Rate 21 16 Blood Pressure Blood Pressure [Left Arm] 103/51 101/51 Blood Pressure [Right Arm] O2 Sat by Pulse Oximetry 93 L 98 Oxygen Delivery Method Room Air Nasal Cannula Room Air Oxygen Flow Rate 2 2 2 FIO2% 11/29/24 20:35 11/29/24 22:05 11/30/24 00:00 Temperature 97.8 F Pulse Rate Pulse Rate [Radial] 70 Respiratory Rate 16 Blood Pressure Blood Pressure [Left Arm] 91/56 98/55 Blood Pressure [Right Arm] O2 Sat by Pulse Oximetry 97 Oxygen Delivery Method Nasal Cannula Nasal Cannula Oxygen Flow Rate 2 2 FIO2% 28 11/30/24 03:53 11/30/24 07:00 11/30/24 08:00 Temperature 97.8 F 98.5 F Pulse Rate Pulse Rate [Radial] 73 80 Respiratory Rate 16 18 Blood Pressure Blood Pressure [Left Arm] 101/56 101/51 Blood Pressure [Right Arm] O2 Sat by Pulse Oximetry 97 97 Oxygen Delivery Method Nasal Cannula Room Air Room Air Oxygen Flow Rate 2 FIO2% 11/30/24 10:55 11/30/24 12:00 11/30/24 16:00 Temperature 98.8 F 97.9 F Pulse Rate Pulse Rate [Radial] 80 75 78 Respiratory Rate 20 22 Blood Pressure Blood Pressure [Left Arm] 102/54 97/52 Blood Pressure [Right Arm] 103/51 O2 Sat by Pulse Oximetry 97 95 Oxygen Delivery Method Room Air Room Air Oxygen Flow Rate FIO2% 11/30/24 19:00 11/30/24 20:00 11/30/24 20:05 Temperature 97.6 F Pulse Rate Pulse Rate [Radial] 75 Respiratory Rate 19 Blood Pressure Blood Pressure [Left Arm] 112/56 Blood Pressure [Right Arm] O2 Sat by Pulse Oximetry 95 Oxygen Delivery Method Room Air Room Air Nasal Cannula Oxygen Flow Rate 2 FIO2% 28 12/01/24 00:00 12/01/24 04:00 12/01/24 07:00 Temperature 98.0 F 98.2 F Pulse Rate Pulse Rate [Radial] 65 70 Respiratory Rate 19 20 Blood Pressure Blood Pressure [Left Arm] 107/51 120/71 Blood Pressure [Right Arm] O2 Sat by Pulse Oximetry 95 96 Oxygen Delivery Method Room Air Room Air Nasal Cannula Oxygen Flow Rate 2 FIO2% 12/01/24 08:00 12/01/24 08:30 Temperature 97.6 F Pulse Rate Pulse Rate [Radial] 76 Respiratory Rate 20 Blood Pressure Blood Pressure [Left Arm] 101/59 Blood Pressure [Right Arm] O2 Sat by Pulse Oximetry 97 Oxygen Delivery Method Room Air Nasal Cannula Oxygen Flow Rate 2 FIO2% 28 Labs: Laboratory Last Values WBC 4.3 X10^3/uL (3.6-10.0) 12/01/24 05:16 RBC 3.08 X10^6/uL (3.5-5.4) L 12/01/24 05:16 Hgb 9.0 g/dL (12.0-16.0) L 12/01/24 05:16 Hct 27.1 % (36.0-47.0) L 12/01/24 05:16 MCV 87.9 fL (80.0-100.0) 12/01/24 05:16 MCH 29.2 pg (27.0-34.0) 12/01/24 05:16 MCHC 33.2 g/dL (33.0-35.0) 12/01/24 05:16 RDW 19.8 % (11.6-16.5) H 12/01/24 05:16 Plt Count 141 X10^3/uL (150.0-450.0) L 12/01/24 05:16 MPV 10.3 fL (7.4-11.0) 12/01/24 05:16 Neut % (Auto) 67.0 % (42.0-75.0) 12/01/24 05:16 Lymph % (Auto) 12.5 % (21.0-51.0) L 12/01/24 05:16 [place] % (Auto) 10.0 % (0.0-13.0) 12/01/24 05:16 Eos % (Auto) 6.4 % (0.9-2.9) H 12/01/24 05:16 Baso % (Auto) 4.1 % (0.2-1.0) H 12/01/24 05:16 Neut # (Auto) 2.9 x10^3/uL (2.2-4.8) 12/01/24 05:16 Lymph # (Auto) 0.5 X10^3/uL (1.3-2.9) L 12/01/24 05:16 [place] # (Auto) 0.4 x10^3/uL (0.3-0.8) 12/01/24 05:16 Eos # (Auto) 0.3 x10^3/uL (0.0-0.2) H 12/01/24 05:16 Baso # (Auto) 0.2 X10^3/uL (0.0-0.1) H 12/01/24 05:16 Absolute Nucleated RBC 0.1 /100WBC 12/01/24 05:16 PT 31.1 SECONDS (11.8-14.3) 12/01/24 05:16 INR Target Range - 12/01/24 05:16 INR 2.97 (0.8-1.3) H 12/01/24 05:16 APTT 51.2 SECONDS (22.9-36.5) H 11/30/24 04:44 PTT Comment - 11/30/24 04:44 Sodium 140 mmol/L (136-145) 12/01/24 05:16 Corrected Sodium 140 mmol/L (136-145) 12/01/24 05:16 Potassium 4.0 mmol/L (3.5-5.1) 12/01/24 05:16 Chloride 108 mmol/L (98-107) H 12/01/24 05:16 Carbon Dioxide 24.3 mmol/L (21-32) 12/01/24 05:16 BUN 20 mg/dL (7-18) H 12/01/24 05:16 Creatinine 1.02 mg/dL (0.55-1.02) 12/01/24 05:16 Est GFR (MDRD) Af Amer > 60 (>60) 12/01/24 05:16 Est GFR (MDRD) Non-Af 56 (>60) L 12/01/24 05:16 Glucose 111 mg/dL (65-99) H 12/01/24 05:16 Calcium 7.2 mg/dL (8.5-10.1) L 12/01/24 05:16 Corrected Calcium 9.4 mg/dL (8.5-10.1) 12/01/24 05:16 Magnesium 1.9 mg/dL (2.0-2.9) L 11/30/24 04:44 Total Bilirubin 0.70 mg/dL (0.2-1.0) 12/01/24 05:16 AST 30 Units/L (15-37) 12/01/24 05:16 ALT 23 Units/L (12-78) 12/01/24 05:16 Alkaline Phosphatase 152 Units/L (46-116) H 12/01/24 05:16 Creatine Kinase 54 Units/L (26-192) 11/30/24 04:44 Troponin I High Sens 11.3 ng/L (4.0-60.0) 11/30/24 04:44 B-Natriuretic Peptide 299 pg/mL (0-79) H 11/29/24 14:18 Total Protein 5.0 g/dL (6.4-8.2) L 12/01/24 05:16 Albumin 1.3 g/dL (3.4-5.0) L 12/01/24 05:16 Globulin 3.7 g/dL (2.5-4.5) 12/01/24 05:16 Albumin/Globulin Ratio 0.4 Ratio (1.1-2.1) L 12/01/24 05:16 Triglycerides 48 mg/dL (0-150) 11/30/24 04:44 Cholesterol 115 mg/dL (0-200) 11/30/24 04:44 LDL Cholesterol, Calc 48 mg/dL (0-100) 11/30/24 04:44 HDL Cholesterol 57 mg/dL (40-60) 11/30/24 04:44 Cholesterol/HDL Ratio 2.0 (0.0-5.0) 11/30/24 04:44 Reason For Visit: CHF EXAC, PULM EDEMA, PERIPH EDEMA Discharge Date Discharge Date: 12/01/24 Discharge Diagnosis All Active Problems (Updated 12/06/24 @ 11:07 by Vianney Cisneros MD) Generalized weakness (Chronic) SOB (shortness of breath) (Acute) Hypotension (Acute) Acute exacerbation of CHF (congestive heart failure) (Acute) Edema, peripheral (Chronic) Pulmonary edema (Acute) Acute exacerbation of CHF (congestive heart failure) (Acute) Hyperlipidemia (Acute) Hypothyroid (Acute) Hypertension (Acute) COPD (chronic obstructive pulmonary disease) (Chronic) A-fib (Chronic) Acute exacerbation of CHF (congestive heart failure) (Acute) Mild congestive heart failure (Acute) COPD (chronic obstructive pulmonary disease) (Chronic) Non-healing skin lesion of nose (Acute) Mechanical heart valve present (Chronic) Shortness of breath (Acute) Hypoalbuminemia (Acute) Need for shingles vaccine (Acute) Shingles (Acute) Bleeding from wound (Acute) Anticoagulated on Coumadin (Acute) Bronchopneumonia (Acute) Atrial fibrillation with RVR (Acute) Hyponatremia (Acute) CHF (congestive heart failure) (Chronic) History of CVA (cerebrovascular accident) (Chronic) DDD (degenerative disc disease) (Chronic) Back pain (Chronic) Hx of myocardial infarction (Chronic) Hypotension (Acute) Plan of Treatment: Continue with present treatment and follow up plan. Pt is to keep follow up appointment as instructed and take medications as ordered. Discharge Medications Discharge Medications: No Known Drug Allergies Allergy (Unknown, Verified 10/27/24 15:24) CONTINUE taking the following medications furosemide 20 mg tablet 20 mg PO QDAY 11/29/24 [History] New Prescriptions furosemide 40 mg tablet (Lasix) 40 mg PO QDAY #30 tabs 12/01/24 [Rx] Discharge Plan Discharge Plan Hospital Course: Patient is a 74-year-old female with a past medical history of CAD, COPD, atrial fibrillation, valve replacement, hypertension, CKD and COPD admitted for CHF exacerbation. This morning she is resting comfortably in bed. She reports no events overnight. She reports her breathing is back to baseline and is doing well and would like to go home today. She has received IV Lasix in the hospital. She has responded well to treatments. Echo revealed EF 50-55%. Patient was discharged home in stable condition. She was prescribed p.o. Lasix 40 daily. She is instructed to follow-up with her PCP in 1 week. Patient Disposition: HOME HEALTH SERVICE Condition: Stable Health Concerns: Post Hospitalization: new medications and changes needed to prevent readmission or further decline. Pt educated and given instructions on all concerns. Care Plan Goals: Problem: Pain/Alteration in Comfort Goal: Improve/ Resolve Pain; Achieve Pain Tolerance Instructions: Take pain medications as prescribed. Contact your primary care provider if your pain is unrelieved or worsens. Follow up with primary care provider as directed. Plan of Treatment: Continue with present treatment and follow up plan. Pt is to keep follow up appointment as instructed and take medications as ordered. Prescriptions: New furosemide [Lasix] 40 mg Tablet 40 mg PO QDAY Qty: 30 0RF No Action potassium chloride 10 mEq capsule, extended release 10 meq PO QDAY Qty: 90 3RF simvastatin 20 mg tablet 20 mg PO QPM Qty: 90 3RF metoprolol tartrate 25 mg tablet 12.5 mg PO BID 90 Days Rx Instructions: FreeTextSi/2 Tablet two times daily; Note: For high blood pressure; Refills: 3; Provider: Elijah Kyle warfarin 5 mg tablet 5 mg PO QPM Qty: 90 3RF spironolactone 25 mg tablet 12.5 mg PO DAILY amiodarone 200 mg Tablet 200 mg PO BID levothyroxine [Synthroid] 100 mcg Tablet 100 mcg PO DAILY@0630 Qty: 30 0RF furosemide 20 mg tablet 20 mg PO QDAY Follow ups/Referrals Follow ups/Referrals: Rohit Moreno MD [STAFF PHYSICIAN, MEDICAL] - 12/08/24 2:45 pm Instructions Instructions: Heart Failure: Helping Someone Manage, When Heart Failure Gets Worse in Adults: What to Know, Edema, [id number] Stand Alone Forms: Excuse From Work or School, Find Help Web Site, [facility] Print Language: SLOVENIAN
== END 2024-12-01 10:35 | disposition home health service (06) ==
LOC: MED/SURG 13:59 → ER 13:59 → MED/SURG 16:49
PROVIDERS: ADMIT Family Medicine; ATTEND Family Medicine
DX: Z79.01 Long term (current) use of anticoagulants; I50.23 Acute on chronic systolic (congestive) heart failure; J44.9 Chronic obstructive pulmonary disease, unspecified; Z60.8 Other problems related to social environment; Z86.73 Personal history of transient ischemic attack (TIA), and cerebral infarction without residual deficits; R94.31 Abnormal electrocardiogram [ECG] [EKG]; N18.9 Chronic kidney disease, unspecified; Z65.8 Other specified problems related to psychosocial circumstances; R06.02 Shortness of breath; J90 Pleural effusion, not elsewhere classified; Z95.0 Presence of cardiac pacemaker; I25.10 Atherosclerotic heart disease of native coronary artery without angina pectoris; I48.20 Chronic atrial fibrillation, unspecified; R26.89 Other abnormalities of gait and mobility; R60.0 Localized edema; M51.379 Other intervertebral disc degeneration, lumbosacral region without mention of lumbar back pain or lower extremity pain; E80.6 Other disorders of bilirubin metabolism; R79.1 Abnormal coagulation profile; I13.0 Hypertensive heart and chronic kidney disease with heart failure and stage 1 through stage 4 chronic kidney disease, or unspecified chronic kidney disease; Z95.2 Presence of prosthetic heart valve

== ENCOUNTER 2024-12-05 11:38 | Observation (INO) ==
[2024-12-05 11:43] VITALS: BMI 26.4
[2024-12-05 12:32] LABS: MEAN PLATELET VOLUME 10.4 fL (7.4-11.0); RED CELL DISTRIBUTION WIDTH 18.8 % (11.6-16.5)
--- NOTE | 2024-12-05 12:35 | DR.GENAD ---
HPI Time Seen Time Seen by Provider: 12/05/24 12:34 PCP Primary Care Physician: Kuldip Complaint/Symptoms Chief Complaint:: Pt states she was recently d/c from here and has more swelling in her lower extremities and this has been ongoing for the last 6 months. Pt is supposed to be on home O2, but states "the tank is too big to carry with me". Her O2 on room air in triage is 94%. Denies fever, chills, n/v, diarrhea. COVID-19 Coronavirus risk:travel/contact w/high risk person: No Has patient experienced Coronavirus symptoms: No Source History Provided: Patient and Family Member Mode of Arrival Mode of Arrival: Ambulatory Timing Onset of Chief Complaint: 06/08/24 PMH PMH Past Medical History: Yes Past Medical History: CHF, COPD, Coronary Artery Disease, CVA, Hypertension, Liver Disease, [place] and Renal Disease Past Surgical History: Yes Surgical History: and CABG/Valve Surgery Family History History of Family Medical Conditions: Yes Family Medical History: [place] and Coronary Artery Disease Social History Alcohol Use: None Do you use any recreational Drugs:: No Lives With: Alone Lives Where: Home Travel Risk Coronavirus risk:travel/contact w/high risk person: No Has patient experienced Coronavirus symptoms: No Infectious screening Have you traveled outside the country in the last 6 months?: No Isolation: Standard PE Vital Signs Vitals: Vital Signs Temperature 98.0 F Pulse Rate 76 Pulse Rate 75 Pulse Rate 75 Pulse Rate 75 Pulse Rate 75 Pulse Rate 75 Pulse Rate 75 Pulse Rate 89 Pulse Rate 79 Pulse Rate 76 Pulse Rate 75 Pulse Rate 85 Pulse Rate 85 Pulse Rate 80 Pulse Rate 78 Pulse Rate 77 Pulse Rate 75 Pulse Rate 75 Pulse Rate 78 Pulse Rate 78 Respiratory Rate 22 Blood Pressure 88/53 Blood Pressure 88/53 Blood Pressure 90/51 Blood Pressure 95/51 Blood Pressure 95/51 Blood Pressure 95/51 Blood Pressure 101/52 Blood Pressure 92/54 Blood Pressure 106/51 Blood Pressure 106/51 Blood Pressure 98/53 Blood Pressure 100/50 Blood Pressure 123/53 O2 Sat by Pulse Oximetry 100 O2 Sat by Pulse Oximetry 100 O2 Sat by Pulse Oximetry 100 O2 Sat by Pulse Oximetry 100 O2 Sat by Pulse Oximetry 100 O2 Sat by Pulse Oximetry 100 O2 Sat by Pulse Oximetry 100 O2 Sat by Pulse Oximetry 97 O2 Sat by Pulse Oximetry 100 O2 Sat by Pulse Oximetry 99 O2 Sat by Pulse Oximetry 100 O2 Sat by Pulse Oximetry 97 O2 Sat by Pulse Oximetry 97 O2 Sat by Pulse Oximetry 99 O2 Sat by Pulse Oximetry 96 O2 Sat by Pulse Oximetry 97 O2 Sat by Pulse Oximetry 99 O2 Sat by Pulse Oximetry 99 O2 Sat by Pulse Oximetry 95 O2 Sat by Pulse Oximetry 94 ROR Labs Reviewed 12/05/24 12:19 12/05/24 12:19 Laboratory: WBC 4.7 X10^3/uL (3.6-10.0) 12/05/24 12:19 RBC 3.09 X10^6/uL (3.5-5.4) L 12/05/24 12:19 Hgb 9.0 g/dL (12.0-16.0) L 12/05/24 12:19 Hct 27.3 % (36.0-47.0) L 12/05/24 12:19 MCV 88.4 fL (80.0-100.0) 12/05/24 12:19 MCH 29.2 pg (27.0-34.0) 12/05/24 12:19 MCHC 33.0 g/dL (33.0-35.0) 12/05/24 12:19 RDW 18.8 % (11.6-16.5) H 12/05/24 12:19 Plt Count 153 X10^3/uL (150.0-450.0) 12/05/24 12:19 MPV 10.4 fL (7.4-11.0) 12/05/24 12:19 Neut % (Auto) 68.9 % (42.0-75.0) 12/05/24 12:19 Lymph % (Auto) 12.9 % (21.0-51.0) L 12/05/24 12:19 [place] % (Auto) 11.0 % (0.0-13.0) 12/05/24 12:19 Eos % (Auto) 3.4 % (0.9-2.9) H 12/05/24 12:19 Baso % (Auto) 3.8 % (0.2-1.0) H 12/05/24 12:19 Neut # (Auto) 3.3 x10^3/uL (2.2-4.8) 12/05/24 12:19 Lymph # (Auto) 0.6 X10^3/uL (1.3-2.9) L 12/05/24 12:19 [place] # (Auto) 0.5 x10^3/uL (0.3-0.8) 12/05/24 12:19 Eos # (Auto) 0.2 x10^3/uL (0.0-0.2) 12/05/24 12:19 Baso # (Auto) 0.2 X10^3/uL (0.0-0.1) H 12/05/24 12:19 Absolute Nucleated RBC 0.1 /100WBC 12/05/24 12:19 Sodium 137 mmol/L (136-145) 12/05/24 12:19 Corrected Sodium TNP 12/05/24 12:19 Potassium 4.0 mmol/L (3.5-5.1) 12/05/24 12:19 Chloride 105 mmol/L (98-107) 12/05/24 12:19 Carbon Dioxide 27.8 mmol/L (21-32) 12/05/24 12:19 BUN 25 mg/dL (7-18) H 12/05/24 12:19 Creatinine 1.31 mg/dL (0.55-1.02) H 12/05/24 12:19 Est GFR (MDRD) Af Amer 51 (>60) L 12/05/24 12:19 Est GFR (MDRD) Non-Af 42 (>60) L 12/05/24 12:19 Glucose 108 mg/dL (65-99) H 12/05/24 12:19 Calcium 7.5 mg/dL (8.5-10.1) L 12/05/24 12:19 Corrected Calcium 9.6 mg/dL (8.5-10.1) 12/05/24 12:19 Magnesium 1.9 mg/dL (2.0-2.9) L 12/05/24 12:19 Total Bilirubin 1.10 mg/dL (0.2-1.0) H 12/05/24 12:19 AST 39 Units/L (15-37) H 12/05/24 12:19 ALT 24 Units/L (12-78) 12/05/24 12:19 Alkaline Phosphatase 147 Units/L (46-116) H 12/05/24 12:19 B-Natriuretic Peptide 238 pg/mL (0-79) H 12/05/24 12:19 Total Protein 5.3 g/dL (6.4-8.2) L 12/05/24 12:19 Albumin 1.4 g/dL (3.4-5.0) L 12/05/24 12:19 Globulin 3.9 g/dL (2.5-4.5) 12/05/24 12:19 Albumin/Globulin Ratio 0.4 Ratio (1.1-2.1) L 12/05/24 12:19 Specimen Type Clean catch urine 12/05/24 13:19 Urine Color Pale yellow (YELLOW) 12/05/24 13:19 Urine Appearance Clear (CLEAR) 12/05/24 13:19 Urine pH 6.0 (5.0 - 8.0) 12/05/24 13:19 Ur Specific [place] 1.015 (1.000-1.030) 12/05/24 13:19 Urine Protein Negative (NEGATIVE) 12/05/24 13:19 Urine Glucose (UA) Negative (NEGATIVE) 12/05/24 13:19 Urine Ketones Negative (NEGATIVE) 12/05/24 13:19 Urine Blood Negative (NEGATIVE) 12/05/24 13:19 Urine Nitrite Negative (NEGATIVE) 12/05/24 13:19 Urine Bilirubin Negative (NEGATIVE) 12/05/24 13:19 Urine Urobilinogen Normal (NORMAL) 12/05/24 13:19 Ur Leukocyte Esterase Negative (NEGATIVE) 12/05/24 13:19 Opioid Opioid Risk Tool Age (Terrence box if 16-45): No History of Preadolescent Sexual Abuse: No Total: 0 Total Score Risk Category: Low Risk Copyright: Wild predicting aberrant behaviors Discharge Plan Diagnosis Discharge Problem: Acute exacerbation of CHF (congestive heart failure), Hypotension, SOB (shortness of breath) Discharge Plan Patient Disposition: 09 ADMITTED INPATIENT Condition: Stable Prescriptions: No Action potassium chloride 10 mEq capsule, extended release 10 meq PO QDAY Qty: 90 3RF simvastatin 20 mg tablet 20 mg PO QPM Qty: 90 3RF metoprolol tartrate 25 mg tablet 12.5 tab PO BID 90 Days Rx Instructions: FreeTextSi/2 Tablet two times daily; Note: For high blood pressure; Refills: 3; Provider: Elijah Kyle warfarin 5 mg tablet 5 mg PO QPM Qty: 90 3RF spironolactone 25 mg tablet 12.5 mg PO DAILY amiodarone 200 mg Tablet 200 mg PO BID Rx Instructions: take 2 tablets twice daily levothyroxine [Synthroid] 100 mcg Tablet 100 mcg PO DAILY@0630 Qty: 30 0RF furosemide 20 mg tablet 20 mg PO QDAY furosemide [Lasix] 40 mg Tablet 40 mg PO QDAY Qty: 30 0RF Health Concerns: Post Hospitalization: new medications and changes needed to prevent readmission or further decline. Pt educated and given instructions on all concerns. Plan of Treatment: Continue with present treatment and follow up plan. Pt is to keep follow up appointment as instructed and take medications as ordered. Orders to Discharge Patient Discharge Orders: Transfer (Routine); Ordered 12/05/24 Ordered By: NICOLE JOSEPH Follow ups/Referrals Follow ups/Referrals: PHILL CORTEZ [Primary Care Provider, Unknown] - 3 days Instructions Print Language: SERBIAN
[2024-12-05 12:45] LABS: COR CA(FOR HYPOALB) 9.6 mg/dL (8.5-10.1); CREATININE 1.31 mg/dL (0.55-1.02); eGFR NON BLACK RACES 42 (>60)
[2024-12-05] MEDS: LASIX IVP ONE (12:54)
[2024-12-05 13:33] LABS: BLOOD/HEMOGLOBIN,URINE NEGATIVE (NEGATIVE); LEUKOCYTE ESTERASE ,URINE NEGATIVE (NEGATIVE); NITRITES,URINE NEGATIVE (NEGATIVE)
[2024-12-05 13:34] LABS: APPEARANCE,URINE CLEAR (CLEAR)
[2024-12-05] MEDS: LASIX IVP SCH (17:45)
[2024-12-06 05:53] LABS: MEAN PLATELET VOLUME 10.5 fL (7.4-11.0); RED CELL DISTRIBUTION WIDTH 19.5 % (11.6-16.5)
[2024-12-06 05:59] LABS: INR 3.19 (0.8-1.3)
[2024-12-06 06:05] LABS: COR CA(FOR HYPOALB) 9.5 mg/dL (8.5-10.1); CREATININE 1.22 mg/dL (0.55-1.02); eGFR NON BLACK RACES 46 (>60)
[2024-12-06] MEDS ORDERED: CONSULT PHARMACY - POTASSIUM & MAGNESIUM XX SCH (07:00)
[2024-12-06] MEDS: K-DUR TAB 20 MEQ PO SCH (08:28)
[2024-12-06] MEDS: MAG-OX TAB PO SCH (08:28)
--- NOTE | 2024-12-06 11:07 | DR.H&P ---
H&P History & Physical for Day of: H&P Date: 12/06/24 Chief Complaint Chief Complaint: SOB, edema History of Present Illness History of Present Illness: Patient is a 74-year-old female with a past medical history of CAD, COPD, atrial fibrillation, valve replacement, hypertension, CKD and COPD on chronic oxygen presented with worsening shortness of breath and lower extremity edema. She was recently discharged few days ago after being treated for CHF exacerbation. She reports feeling worse after she got home. ER work-up showed elevated BNP, worsening LE edema. She was started on IV lasix and admitted for further management. Patient reports taking lasix at home. Her dose was increased to 40 mg daily at recent discharge, unclear if patient picked up this dose from the pharmacy. She is feeling better now. She remains on 2L [place]. Labs/imaging reviewed: - WBC 5.3 hemoglobin 8.6 platelet 143 potassium 3.5 creatinine 1.22 magnesium 1.9 BNP 238 - INR 3.19 Plan: Admit to [facility] with telemetry. Continue IV Lasix, monitor daily weight, strict I's and O's. Patient did have an echocardiogram done last week. Replace electrolytes as per protocol. Resume home medications. Will order chest x-ray. Physical therapy as tolerated. Monitor a.m. labs and imaging. Time spent for clinical assessment, reviewing labs and imaging, physical exam, decision making and documentation greater than 45 minutes. Past Medical History Past Medical History: CHF, COPD, Coronary Artery Disease, CVA, Hypertension, Liver Disease, [place] and Renal Disease Additional Medical History: Coumadin Therapy, Cataracts, TIA, Muscle Weakness, Back Pain, Degenerative Disc Disease, Previous Blood Transfusion Past Surgical History Surgical History: and CABG/Valve Surgery Additional Surgical History: Pacemaker Family History Family Medical History: [place] and Coronary Artery Disease Social History Does patient currently use any type of tobacco product: No Type of Tobacco Use: None Does any household member use tobacco: No Alcohol Use: None Drug Use: None Medications Home Medications: Home Medications Medication Instructions Recorded Confirmed Type metoprolol tartrate 25 mg tablet 12.5 mg PO BID 90 day s 07/14/22 12/06/24 History amiodarone 200 mg tablet 200 mg PO BID 10/27/2412/05 History spironolactone 25 mg tablet 12.5 mg PO DAILY 10/27/24 12/05/24 History furosemide 20 mg tablet 20 mg PO QDAY 11/29/2412/05 History Allergies Allergies Allergy/AdvReac Type Severity Reaction Status Date / Time No Known Drug Allergies Allergy Unknown Verified 10/27/24 15:24 Labs 12/06/24 05:12 12/06/24 05:12 Labs: Laboratory WBC 5.3 X10^3/uL (3.6-10.0) 12/06/24 05:12 RBC 2.95 X10^6/uL (3.5-5.4) L 12/06/24 05:12 Hgb 8.6 g/dL (12.0-16.0) L 12/06/24 05:12 Hct 25.7 % (36.0-47.0) L 12/06/24 05:12 MCV 87.0 fL (80.0-100.0) 12/06/24 05:12 MCH 29.2 pg (27.0-34.0) 12/06/24 05:12 MCHC 33.6 g/dL (33.0-35.0) 12/06/24 05:12 RDW 19.5 % (11.6-16.5) H 12/06/24 05:12 Plt Count 143 X10^3/uL (150.0-450.0) L 12/06/24 05:12 MPV 10.5 fL (7.4-11.0) 12/06/24 05:12 Neut % (Auto) 73.2 % (42.0-75.0) 12/06/24 05:12 Lymph % (Auto) 9.0 % (21.0-51.0) L 12/06/24 05:12 [place] % (Auto) 10.9 % (0.0-13.0) 12/06/24 05:12 Eos % (Auto) 4.4 % (0.9-2.9) H 12/06/24 05:12 Baso % (Auto) 2.5 % (0.2-1.0) H 12/06/24 05:12 Neut # (Auto) 3.8 x10^3/uL (2.2-4.8) 12/06/24 05:12 Lymph # (Auto) 0.5 X10^3/uL (1.3-2.9) L 12/06/24 05:12 [place] # (Auto) 0.6 x10^3/uL (0.3-0.8) 12/06/24 05:12 Eos # (Auto) 0.2 x10^3/uL (0.0-0.2) 12/06/24 05:12 Baso # (Auto) 0.1 X10^3/uL (0.0-0.1) 12/06/24 05:12 Absolute Nucleated RBC 0.0 /100WBC 12/06/24 05:12 PT 32.9 SECONDS (11.8-14.3) 12/06/24 05:12 INR Target Range - 12/06/24 05:12 INR 3.19 (0.8-1.3) H 12/06/24 05:12 Sodium 139 mmol/L (136-145) 12/06/24 05:12 Corrected Sodium TNP 12/06/24 05:12 Potassium 3.5 mmol/L (3.5-5.1) 12/06/24 05:12 Chloride 106 mmol/L (98-107) 12/06/24 05:12 Carbon Dioxide 28.0 mmol/L (21-32) 12/06/24 05:12 BUN 25 mg/dL (7-18) H 12/06/24 05:12 Creatinine 1.22 mg/dL (0.55-1.02) H 12/06/24 05:12 Est GFR (MDRD) Af Amer 55 (>60) L 12/06/24 05:12 Est GFR (MDRD) Non-Af 46 (>60) L 12/06/24 05:12 Glucose 104 mg/dL (65-99) H 12/06/24 05:12 Calcium 7.3 mg/dL (8.5-10.1) L 12/06/24 05:12 Corrected Calcium 9.5 mg/dL (8.5-10.1) 12/06/24 05:12 Magnesium 1.9 mg/dL (2.0-2.9) L 12/06/24 05:12 Total Bilirubin 0.80 mg/dL (0.2-1.0) 12/06/24 05:12 AST 29 Units/L (15-37) 12/06/24 05:12 ALT 22 Units/L (12-78) 12/06/24 05:12 Alkaline Phosphatase 138 Units/L (46-116) H 12/06/24 05:12 B-Natriuretic Peptide 210 pg/mL (0-79) H 12/06/24 05:12 Total Protein 5.0 g/dL (6.4-8.2) L 12/06/24 05:12 Albumin 1.3 g/dL (3.4-5.0) L 12/06/24 05:12 Globulin 3.7 g/dL (2.5-4.5) 12/06/24 05:12 Albumin/Globulin Ratio 0.4 Ratio (1.1-2.1) L 12/06/24 05:12 Specimen Type Clean catch urine 12/05/24 13:19 Urine Color Pale yellow (YELLOW) 12/05/24 13:19 Urine Appearance Clear (CLEAR) 12/05/24 13:19 Urine pH 6.0 (5.0 - 8.0) 12/05/24 13:19 Ur Specific [place] 1.015 (1.000-1.030) 12/05/24 13:19 Urine Protein Negative (NEGATIVE) 12/05/24 13:19 Urine Glucose (UA) Negative (NEGATIVE) 12/05/24 13:19 Urine Ketones Negative (NEGATIVE) 12/05/24 13:19 Urine Blood Negative (NEGATIVE) 12/05/24 13:19 Urine Nitrite Negative (NEGATIVE) 12/05/24 13:19 Urine Bilirubin Negative (NEGATIVE) 12/05/24 13:19 Urine Urobilinogen Normal (NORMAL) 12/05/24 13:19 Ur Leukocyte Esterase Negative (NEGATIVE) 12/05/24 13:19 Review of Systems Constitutional: Weakness Eyes: No Symptoms Reported ENT: No Symptoms Reported Respiratory: Shortness of Breath Cardiovascular: Edema Gastrointestinal: No Symptoms Reported Genitourinary: No Symptoms Reported Musculoskeletal: No Symptoms Reported Skin: No Symptoms Reported Neurological: No Symptoms Reported Physical Exam Vital Signs: Vital Signs Temperature 97.8 F Temperature 98.0 F Pulse Rate [Left] 80 Pulse Rate [Left] 74 Respiratory Rate 19 Respiratory Rate 19 Blood Pressure [Left Arm] 104/59 Blood Pressure [Left Arm] 99/52 O2 Sat by Pulse Oximetry 98 O2 Sat by Pulse Oximetry 98 Oriented: Normal Eyes: Normal Nose: Normal Throat: Normal Respiratory: Rales Throughout Cardiovascular: Normal and Edema Auscultation: Bowel Sounds: Normal Palpation: Normal Tenderness: Normal Skin: Normal Musculoskeletal: Normal Psychiatric: Normal Mood Description: Calm Affect: Normal Speech Pattern: Clear and Appropriate Assessment/Plan (1) Acute exacerbation of CHF (congestive heart failure): Qualifiers: Heart failure type: systolic Qualified Code(s): I50.23 - Acute on chronic systolic (congestive) heart failure Status: Acute (2) Hypotension: Qualifiers: Hypotension type: idiopathic hypotension Qualified Code(s): I95.0 - Idiopathic hypotension Status: Acute (3) Edema, peripheral: Status: Chronic (4) COPD (chronic obstructive pulmonary disease): Qualifiers: COPD type: unspecified COPD Qualified Code(s): J44.9 - Chronic obstructive pulmonary disease, unspecified Status: Chronic (5) Mechanical heart valve present: Status: Chronic (6) Generalized weakness: Status: Chronic Review H&P Reviewed: Yes Patient was examined?: Yes
[2024-12-06] MEDS: CORDARONE TAB 200 MG PO SCH (11:29)
[2024-12-06] MEDS: LOPRESSOR TAB 25 MG PO SCH (11:30)
[2024-12-06] MEDS: COUMADIN TAB 5 MG (JANTOVEN) PO SCH (20:52)
[2024-12-06] MEDS: ZOCOR TAB 20 MG PO SCH (20:52)
[2024-12-07 05:55] LABS: MEAN PLATELET VOLUME 10.5 fL (7.4-11.0); RED CELL DISTRIBUTION WIDTH 19.4 % (11.6-16.5)
[2024-12-07 05:58] LABS: INR 2.87 (0.8-1.3)
[2024-12-07 06:14] LABS: COR CA(FOR HYPOALB) 9.1 mg/dL (8.5-10.1); COR NA(FOR HYPERGLY) 140.0 mmol/L (136-145); CREATININE 1.19 mg/dL (0.55-1.02); eGFR NON BLACK RACES 47.0 (>60)
[2024-12-07] MEDS: KLOR-CON 10 MEQ TAB PO SCH (08:50)
--- NOTE | 2024-12-07 11:09 | RAD ---
EXAM: CHEST, 1 VIEW HISTORY: CHF EXACERBATION; COMPARISON: 12/01/2024 FINDINGS: br There has been slight progression Probable small left pleural effusion. No significant right effusion. Cardiomegaly is present. The bones are unremarkable. A left subclavian ICD is present with the leads in expected location. Median sternotomy fixation hardware is present. There is a prosthetic heart valve. IMPRESSION: 1. Progressed pulmonary edema or pneumonia 2. Small left effusion 3. Stable cardiomegaly THIS IS AN ELECTRONICALLY VERIFIED FINAL REPORT 12/07/2024 11:06 AM - Electronically signed by Devonte Garcia MD
[2024-12-07 16:29] VITALS: BP 106/55; PULSE 80; RESP 19; TEMP 98.3; O2SAT 93
[2024-12-08] MEDS ORDERED: LASIX IVP SCH (09:00)
--- NOTE | 2024-12-08 16:05 | W.DIS.FURT ---
Summary of Discharge Discharge Summary of Date Date of Exam: 12/05/24 Admission Date Date of Admission: 12/07/24 Admission Diagnosis Patient Problems (Updated 12/06/24 @ 11:07 by Vianney Cisneros MD) SOB (shortness of breath) (Acute) R06.02 Hypotension (Acute) I95.9 Acute exacerbation of CHF (congestive heart failure) (Acute) I50.9 Hospital Course: Patient is a 74-year-old female with a past medical history of CAD, COPD, atrial fibrillation, valve replacement, hypertension, CKD and COPD on chronic oxygen presented with worsening shortness of breath and lower extremity edema. She was recently discharged few days ago after being treated for CHF exacerbation. She reports feeling worse after she got home. ER work-up showed elevated BNP, worsening LE edema. She was started on IV lasix and admitted for further management. Patient reports taking lasix at home. Her dose was increased to 40 mg daily at recent discharge, unclear if patient picked up this dose from the pharmacy. She is feeling better now. She remains on 2L [place]. Labs were monitored daily and electrolytes replaced as needed. She did not require any more oxygen than her baseline. Her lower extremity edema did improve. She was feeling better and wanted to go home. She was told to follow-up with her finish machine tender and PCP. Both appointments were made for patient to follow-up. She was advised to take Lasix 40 mg daily and monitor her blood pressure. She was stable for discharge with home health. Vital Signs: Vital Signs (72 hours) 12/05/24 11:38 12/05/24 12:20 12/05/24 12:30 Temperature 98.0 F Pulse Rate 78 78 Pulse Rate [Left] Respiratory Rate 22 Blood Pressure 123/53 100/50 Blood Pressure [Left Arm] O2 Sat by Pulse Oximetry 94 L 95 Oxygen Delivery Method Room Air Oxygen Flow Rate FIO2% 12/05/24 12:30 12/05/24 12:45 12/05/24 13:00 Temperature Pulse Rate 75 75 77 Pulse Rate [Left] Respiratory Rate Blood Pressure Blood Pressure [Left Arm] O2 Sat by Pulse Oximetry 99 99 97 Oxygen Delivery Method Oxygen Flow Rate FIO2% 12/05/24 13:02 12/05/24 13:02 12/05/24 13:15 Temperature Pulse Rate 78 80 Pulse Rate [Left] Respiratory Rate Blood Pressure 98/53 Blood Pressure [Left Arm] O2 Sat by Pulse Oximetry 96 99 Oxygen Delivery Method Oxygen Flow Rate FIO2% 12/05/24 13:30 12/05/24 13:30 12/05/24 13:30 Temperature Pulse Rate 85 85 Pulse Rate [Left] Respiratory Rate Blood Pressure 106/51 Blood Pressure [Left Arm] O2 Sat by Pulse Oximetry 97 97 Oxygen Delivery Method Oxygen Flow Rate FIO2% 12/05/24 13:30 12/05/24 13:45 12/05/24 14:00 Temperature Pulse Rate 75 Pulse Rate [Left] Respiratory Rate Blood Pressure 106/51 92/54 Blood Pressure [Left Arm] O2 Sat by Pulse Oximetry 100 Oxygen Delivery Method Oxygen Flow Rate FIO2% 12/05/24 14:00 12/05/24 14:15 12/05/24 14:30 Temperature Pulse Rate 76 79 Pulse Rate [Left] Respiratory Rate Blood Pressure 101/52 Blood Pressure [Left Arm] O2 Sat by Pulse Oximetry 99 100 Oxygen Delivery Method Oxygen Flow Rate FIO2% 12/05/24 14:30 12/05/24 14:45 12/05/24 15:00 Temperature Pulse Rate 89 75 Pulse Rate [Left] Respiratory Rate Blood Pressure 95/51 Blood Pressure [Left Arm] O2 Sat by Pulse Oximetry 97 100 Oxygen Delivery Method Oxygen Flow Rate FIO2% 12/05/24 15:00 12/05/24 15:00 12/05/24 15:00 Temperature Pulse Rate 75 Pulse Rate [Left] Respiratory Rate Blood Pressure 95/51 95/51 Blood Pressure [Left Arm] O2 Sat by Pulse Oximetry 100 Oxygen Delivery Method Oxygen Flow Rate FIO2% 12/05/24 15:00 12/05/24 15:15 12/05/24 15:30 Temperature Pulse Rate 75 75 Pulse Rate [Left] Respiratory Rate Blood Pressure 90/51 Blood Pressure [Left Arm] O2 Sat by Pulse Oximetry 100 100 Oxygen Delivery Method Oxygen Flow Rate FIO2% 12/05/24 15:30 12/05/24 15:45 12/05/24 16:00 Temperature Pulse Rate 75 75 Pulse Rate [Left] Respiratory Rate Blood Pressure 88/53 Blood Pressure [Left Arm] O2 Sat by Pulse Oximetry 100 100 Oxygen Delivery Method Oxygen Flow Rate FIO2% 12/05/24 16:00 12/05/24 16:00 12/05/24 17:10 Temperature 97.4 F L Pulse Rate 76 Pulse Rate [Left] 84 Respiratory Rate 20 Blood Pressure 88/53 Blood Pressure [Left Arm] 105/52 O2 Sat by Pulse Oximetry 100 98 Oxygen Delivery Method Nasal Cannula Oxygen Flow Rate 2 FIO2% 12/05/24 17:11 12/05/24 17:44 12/05/24 19:00 Temperature Pulse Rate Pulse Rate [Left] Respiratory Rate Blood Pressure Blood Pressure [Left Arm] O2 Sat by Pulse Oximetry Oxygen Delivery Method Nasal Cannula Nasal Cannula Nasal Cannula Oxygen Flow Rate 2 2 2 FIO2% 28 12/05/24 20:00 12/05/24 23:17 12/06/24 03:26 Temperature 98.0 F 97.6 F 98.0 F Pulse Rate Pulse Rate [Left] 75 67 74 Respiratory Rate 18 19 19 Blood Pressure Blood Pressure [Left Arm] 99/56 97/51 99/52 O2 Sat by Pulse Oximetry 99 96 98 Oxygen Delivery Method Nasal Cannula Nasal Cannula Nasal Cannula Oxygen Flow Rate 2 2 2 FIO2% 12/06/24 07:00 12/06/24 07:31 12/06/24 09:06 Temperature 97.8 F Pulse Rate Pulse Rate [Left] 80 Respiratory Rate 19 Blood Pressure Blood Pressure [Left Arm] 104/59 O2 Sat by Pulse Oximetry 98 Oxygen Delivery Method Nasal Cannula Nasal Cannula Nasal Cannula Oxygen Flow Rate 2 2 2 FIO2% 28 12/06/24 12:00 12/06/24 15:33 12/06/24 19:00 Temperature 98.4 F 98.3 F Pulse Rate Pulse Rate [Left] 76 89 Respiratory Rate 20 20 Blood Pressure Blood Pressure [Left Arm] 100/54 98/52 O2 Sat by Pulse Oximetry 98 99 Oxygen Delivery Method Nasal Cannula Nasal Cannula Nasal Cannula Oxygen Flow Rate 2 2 2 FIO2% 12/06/24 20:00 12/06/24 23:51 12/07/24 03:34 Temperature 98.1 F 97.6 F 98.0 F Pulse Rate Pulse Rate [Left] 75 62 63 Respiratory Rate 20 19 19 Blood Pressure Blood Pressure [Left Arm] 98/55 98/58 99/59 O2 Sat by Pulse Oximetry 97 93 L 96 Oxygen Delivery Method Nasal Cannula Nasal Cannula Nasal Cannula Oxygen Flow Rate 2 2 2 FIO2% 12/07/24 06:20 12/07/24 07:00 12/07/24 08:33 Temperature Pulse Rate Pulse Rate [Left] Respiratory Rate Blood Pressure Blood Pressure [Left Arm] O2 Sat by Pulse Oximetry Oxygen Delivery Method Nasal Cannula Nasal Cannula Nasal Cannula Oxygen Flow Rate 2 2 2 FIO2% 28 28 Labs: Laboratory Last Values WBC 4.8 X10^3/uL (3.6-10.0) 12/07/24 05:14 RBC 2.95 X10^6/uL (3.5-5.4) L 12/07/24 05:14 Hgb 8.8 g/dL (12.0-16.0) L 12/07/24 05:14 Hct 25.7 % (36.0-47.0) L 12/07/24 05:14 MCV 87.2 fL (80.0-100.0) 12/07/24 05:14 MCH 29.7 pg (27.0-34.0) 12/07/24 05:14 MCHC 34.1 g/dL (33.0-35.0) 12/07/24 05:14 RDW 19.4 % (11.6-16.5) H 12/07/24 05:14 Plt Count 149 X10^3/uL (150.0-450.0) L 12/07/24 05:14 MPV 10.5 fL (7.4-11.0) 12/07/24 05:14 Neut % (Auto) 65.4 % (42.0-75.0) 12/07/24 05:14 Lymph % (Auto) 14.4 % (21.0-51.0) L 12/07/24 05:14 [place] % (Auto) 12.8 % (0.0-13.0) 12/07/24 05:14 Eos % (Auto) 4.5 % (0.9-2.9) H 12/07/24 05:14 Baso % (Auto) 2.9 % (0.2-1.0) H 12/07/24 05:14 Neut # (Auto) 3.2 x10^3/uL (2.2-4.8) 12/07/24 05:14 Lymph # (Auto) 0.7 X10^3/uL (1.3-2.9) L 12/07/24 05:14 [place] # (Auto) 0.6 x10^3/uL (0.3-0.8) 12/07/24 05:14 Eos # (Auto) 0.2 x10^3/uL (0.0-0.2) 12/07/24 05:14 Baso # (Auto) 0.1 X10^3/uL (0.0-0.1) 12/07/24 05:14 Absolute Nucleated RBC 0.1 /100WBC 12/07/24 05:14 PT 30.3 SECONDS (11.8-14.3) 12/07/24 05:14 INR Target Range - 12/07/24 05:14 INR 2.87 (0.8-1.3) H 12/07/24 05:14 Sodium 139 mmol/L (136-145) 12/07/24 05:14 Corrected Sodium 140 mmol/L (136-145) 12/07/24 05:14 Potassium 4.0 mmol/L (3.5-5.1) 12/07/24 05:14 Chloride 104 mmol/L (98-107) 12/07/24 05:14 Carbon Dioxide 28.9 mmol/L (21-32) 12/07/24 05:14 BUN 23 mg/dL (7-18) H 12/07/24 05:14 Creatinine 1.19 mg/dL (0.55-1.02) H 12/07/24 05:14 Est GFR (MDRD) Af Amer 57 (>60) L 12/07/24 05:14 Est GFR (MDRD) Non-Af 47 (>60) L 12/07/24 05:14 Glucose 126 mg/dL (65-99) H 12/07/24 05:14 Calcium 6.9 mg/dL (8.5-10.1) L 12/07/24 05:14 Corrected Calcium 9.1 mg/dL (8.5-10.1) 12/07/24 05:14 Magnesium 1.9 mg/dL (2.0-2.9) L 12/06/24 05:12 Total Bilirubin 0.70 mg/dL (0.2-1.0) 12/07/24 05:14 AST 30 Units/L (15-37) 12/07/24 05:14 ALT 25 Units/L (12-78) 12/07/24 05:14 Alkaline Phosphatase 142 Units/L (46-116) H 12/07/24 05:14 B-Natriuretic Peptide 210 pg/mL (0-79) H 12/06/24 05:12 Total Protein 5.0 g/dL (6.4-8.2) L 12/07/24 05:14 Albumin 1.3 g/dL (3.4-5.0) L 12/07/24 05:14 Globulin 3.7 g/dL (2.5-4.5) 12/07/24 05:14 Albumin/Globulin Ratio 0.4 Ratio (1.1-2.1) L 12/07/24 05:14 Specimen Type Clean catch urine 12/05/24 13:19 Urine Color Pale yellow (YELLOW) 12/05/24 13:19 Urine Appearance Clear (CLEAR) 12/05/24 13:19 Urine pH 6.0 (5.0 - 8.0) 12/05/24 13:19 Ur Specific [place] 1.015 (1.000-1.030) 12/05/24 13:19 Urine Protein Negative (NEGATIVE) 12/05/24 13:19 Urine Glucose (UA) Negative (NEGATIVE) 12/05/24 13:19 Urine Ketones Negative (NEGATIVE) 12/05/24 13:19 Urine Blood Negative (NEGATIVE) 12/05/24 13:19 Urine Nitrite Negative (NEGATIVE) 12/05/24 13:19 Urine Bilirubin Negative (NEGATIVE) 12/05/24 13:19 Urine Urobilinogen Normal (NORMAL) 12/05/24 13:19 Ur Leukocyte Esterase Negative (NEGATIVE) 12/05/24 13:19 Reason For Visit: CHF, HYPOTENSION, SOB Discharge Diagnosis All Active Problems (Updated 12/06/24 @ 11:07 by Vianney Cisneros MD) Generalized weakness (Chronic) SOB (shortness of breath) (Acute) Hypotension (Acute) Acute exacerbation of CHF (congestive heart failure) (Acute) Edema, peripheral (Chronic) Pulmonary edema (Acute) Acute exacerbation of CHF (congestive heart failure) (Acute) Hyperlipidemia (Acute) Hypothyroid (Acute) Hypertension (Acute) COPD (chronic obstructive pulmonary disease) (Chronic) A-fib (Chronic) Acute exacerbation of CHF (congestive heart failure) (Acute) Mild congestive heart failure (Acute) COPD (chronic obstructive pulmonary disease) (Chronic) Non-healing skin lesion of nose (Acute) Mechanical heart valve present (Chronic) Shortness of breath (Acute) Hypoalbuminemia (Acute) Need for shingles vaccine (Acute) Shingles (Acute) Bleeding from wound (Acute) Anticoagulated on Coumadin (Acute) Bronchopneumonia (Acute) Atrial fibrillation with RVR (Acute) Hyponatremia (Acute) CHF (congestive heart failure) (Chronic) History of CVA (cerebrovascular accident) (Chronic) DDD (degenerative disc disease) (Chronic) Back pain (Chronic) Hx of myocardial infarction (Chronic) Hypotension (Acute) Plan of Treatment: Continue with present treatment and follow up plan. Pt is to keep follow up appointment as instructed and take medications as ordered. Discharge Medications Discharge Medications: No Known Drug Allergies Allergy (Unknown, Verified 10/27/24 15:24) Discharge Disposition Discharge Disposition: home Discharge Condition: stable Discharge Plan Discharge Plan Hospital Course: Patient is a 74-year-old female with a past medical history of CAD, COPD, atrial fibrillation, valve replacement, hypertension, CKD and COPD on chronic oxygen presented with worsening shortness of breath and lower extremity edema. She was recently discharged few days ago after being treated for CHF exacerbation. She reports feeling worse after she got home. ER work-up showed elevated BNP, worsening LE edema. She was started on IV lasix and admitted for further management. Patient reports taking lasix at home. Her dose was increased to 40 m g daily at recent discharge, unclear if patient picked up this dose from the pharmacy. She is feeling better now. She remains on 2L [place]. Labs were monitored daily and electrolytes replaced as needed. She did not require any more oxygen than her baseline. Her lower extremity edema did improve. She was feeling better and wanted to go home. She was told to follow-up with her finish machine tender and PCP. Both appointments were made for patient to follow-up. She was advised to take Lasix 40 mg daily and monitor her blood pressure. She was stable for discharge with home health. Patient Disposition: HOME HEALTH SERVICE Condition: Stable Health Concerns: Post Hospitalization: new medications and changes needed to prevent readmission or further decline. Pt educated and given instructions on all concerns. Care Plan Goals: Problem: Pain/Alteration in Comfort Goal: Improve/ Resolve Pain; Achieve Pain Tolerance Instructions: Take pain medications as prescribed. Contact your primary care provider if your pain is unrelieved or worsens. Follow up with primary care provider as directed. Plan of Treatment: Continue with present treatment and follow up plan. Pt is to keep follow up appointment as instructed and take medications as ordered. Prescription drug monitoring program results: PDMP reviewed and no concerns identified Prescriptions: Continued potassium chloride 10 mEq capsule, extended release 10 meq PO QDAY Qty: 90 3RF simvastatin 20 mg tablet 20 mg PO QPM Qty: 90 3RF metoprolol tartrate 25 mg tablet 12.5 mg PO BID 90 Days Rx Instructions: FreeTextSi/2 Tablet two times daily; Note: For high blood pressure; Refills: 3; Provider: Elijah Kyle warfarin 5 mg tablet 5 mg PO QPM Qty: 90 3RF spironolactone 25 mg tablet 12.5 mg PO DAILY amiodarone 200 mg Tablet 200 mg PO BID levothyroxine [Synthroid] 100 mcg Tablet 100 mcg PO DAILY@0630 Qty: 30 0RF furosemide [Lasix] 40 mg Tablet 40 mg PO QDAY Qty: 30 0RF Discontinued furosemide 20 mg tablet 20 mg PO QDAY Follow ups/Referrals Follow ups/Referrals: PHILL CORTEZ [Primary Care Provider, Unknown] - 12/13/24 1:45 pm Hema Car [STAFF PHYSICIAN, Unknown] - 12/16/24 10:00 am Instructions Instructions: Fatigue, Cough, Adult, Weakness Stand Alone Forms: Excuse From Work or School, Find Help Web Site, [facility] Follow Up Care Print Language: ARABIC
== END 2024-12-07 15:35 | disposition home health service (06) ==
LOC: ER 11:38 → MED/SURG 11:38
PROVIDERS: ADMIT Family Medicine; ATTEND Family Medicine
DX: J90 Pleural effusion, not elsewhere classified; R06.02 Shortness of breath; R26.89 Other abnormalities of gait and mobility; Z60.8 Other problems related to social environment; E83.42 Hypomagnesemia; I50.23 Acute on chronic systolic (congestive) heart failure; R60.0 Localized edema; I13.0 Hypertensive heart and chronic kidney disease with heart failure and stage 1 through stage 4 chronic kidney disease, or unspecified chronic kidney disease; I95.0 Idiopathic hypotension; R53.1 Weakness; R79.1 Abnormal coagulation profile; J44.9 Chronic obstructive pulmonary disease, unspecified; Z86.73 Personal history of transient ischemic attack (TIA), and cerebral infarction without residual deficits; I25.10 Atherosclerotic heart disease of native coronary artery without angina pectoris; Z95.2 Presence of prosthetic heart valve; Z79.01 Long term (current) use of anticoagulants; N18.9 Chronic kidney disease, unspecified; Z95.0 Presence of cardiac pacemaker; Z65.0 Conviction in civil and criminal proceedings without imprisonment

== ENCOUNTER 2024-12-20 04:30 | Observation (INO) ==
[2024-12-20 04:52] VITALS: BMI 26.7
--- NOTE | 2024-12-20 04:52 | EKG ---
Test Reason : weakness, chf Blood Pressure : */* mmHG Vent. Rate : 71 BPM Atrial Rate : * BPM P-R Int : * ms QRS Dur : 106 ms QT Int : 608 ms P-R-T Axes : * 138 203 degrees QTc Int : 660 ms Accelerated Junctional rhythm Ventricular pacemaker present Incomplete right bundle branch block Possible Right ventricular hypertrophy Nonspecific ST and T wave abnormality Abnormal ECG When compared with ECG of 30-NOV-2024 05:29, Junctional rhythm has replaced Electronic ventricular pacemaker Confirmed by Malik Hernandez MD ([id number]) on 12/20/2024 7:29:08 AM Referred By: Confirmed By: Malik Hernandez MD
[2024-12-20 05:10] LABS: MEAN PLATELET VOLUME 10.2 fL (7.4-11.0); RED CELL DISTRIBUTION WIDTH 17.9 % (11.6-16.5)
[2024-12-20 05:13] LABS: INR 1.96 (0.8-1.3)
[2024-12-20 05:21] LABS: COR CA(FOR HYPOALB) 9.5 mg/dL (8.5-10.1); CREATININE 1.31 mg/dL (0.55-1.02); eGFR NON BLACK RACES 42 (>60)
[2024-12-20 05:23] LABS: BLOOD/HEMOGLOBIN,URINE NEGATIVE (NEGATIVE); LEUKOCYTE ESTERASE ,URINE 1+ (NEGATIVE); NITRITES,URINE NEGATIVE (NEGATIVE)
[2024-12-20 05:24] LABS: APPEARANCE,URINE CLEAR (CLEAR)
[2024-12-20 05:36] LABS: SQUAMOUS EPITHELIAL CELL,UR NUMEROUS /HPF (NEGATIVE)
--- NOTE | 2024-12-20 05:56 | DR.GENAD ---
HPI Time Seen Time Seen by Provider: 12/20/24 05:56 PCP Primary Care Physician: britni HINSON Comment HPI Comment: 74-year-old female with a past medical history of CAD, CHF, COPD, atrial fibrillation, valve replacement, hypertension, CKD and COPD on chronic oxygen with complaint of SOB over the last 2-3 days. Pt was discharged on 12/07/24 and states she was admitted to another hospital in between but was apparently discharged or left AMA yesterday. Pt is obviously retaining fluid with pitting edema all the way up to her abdomen. Patient states she has been taking her Lasix. Denies chest pain. Complaint/Symptoms Chief Complaint:: pt to er via ems with complaint of swelling to lower extremities and to abd. pt also complaint of weakness x tonight COVID-19 Coronavirus risk:travel/contact w/high risk person: No Has patient experienced Coronavirus symptoms: No Source History Provided: Patient Mode of Arrival Mode of Arrival: EMS Timing Onset of Chief Complaint: 12/20/24 PMH PMH Past Medical History: Yes Past Medical History: Arthritis, CHF, COPD, Coronary Artery Disease, CVA, Hypertension, Liver Disease, MA and Renal Disease Past Medical History Comment: a-fib with rvr, skin cancer Past Surgical History: Yes Surgical History: and CABG/Valve Surgery Past Surgical History Comment: pacemaker Family History History of Family Medical Conditions: Yes Family Medical History: MA and Coronary Artery Disease Social History Does patient currently use any type of tobacco product: No Have you used tobacco products in the last 12 months: No Type of Tobacco Use: None Does any household member use tobacco: No Alcohol Use: None Do you use any recreational Drugs:: No Lives With: Family Lives Where: Home Travel Risk Coronavirus risk:travel/contact w/high risk person: No Has patient experienced Coronavirus symptoms: No Infectious screening In the last 2 months have you had wt loss of >10#?: NO Have you had fever, night sweats or hemotysis?: No Have you traveled outside the country in the last 6 months?: No Isolation: Standard ROS Review of Systems Constitutional: No Symptoms Reported Eyes: No Symptoms Reported ENTM: No Symptoms Reported Respiratoy: See HPI and Short of Breath; negative Wheezing Cardiovascular: See HPI and Edema; negative Chest Pain, Palpitations or Syncope Gastrointestinal/Abdominal: No Symptoms Reported Genitourinary: No Symptoms Reported Neurological: No Symptoms Reported Musculoskeletal: No Symptoms Reported Integumentary: No Symptoms Reported Hematologic/Lymphatic: No Symptoms Reported Endocrine: No Symptoms Reported Psychiatric: No Symptoms Reported All Other Systems: Reviewed and Negative PE Vital Signs Vitals: Vital Signs Temperature 98.5 F Pulse Rate 93 Pulse Rate 81 Pulse Rate 71 Pulse Rate 84 Respiratory Rate 18 Respiratory Rate 28 Blood Pressure 104/52 Blood Pressure 107/53 O2 Sat by Pulse Oximetry 98 O2 Sat by Pulse Oximetry 95 O2 Sat by Pulse Oximetry 95 O2 Sat by Pulse Oximetry 94 General Limitations: No Limitations General Appearance: Alert and Other (Respiratory distress) Head Head Exam: Normal Inspection Eyes Eye exam: Normal Appearance ENT ENT Exam: Normal Exam External Ear Exam: Normal External Inspection TM/Canal Exam: Bilateral: Normal Nose Exam: Normal Nose Exam Mouth Exam: Normal Inspection Throat Exam: Normal Inspection Neck Neck Exam: Normal Inspection Chest Chest Inspection: Normal Inspection Respiratory Respiratory Exam: Respiratory Distress (Coarse bilaterally with crackles) Cardiovascular Cardiovascular Exam: Regular Rate and Normal Rhythm Abdominal Exam Abdominal Exam: Normal Inspection, Normal Bowel Sounds and Soft Extremities Extremities Exam: Edema (Pitting edema all the way up to her abdomen.) Back Back Exam: Normal Inspection Neurologic Neurological Exam: Alert and Oriented X3 Psychiatric Psychiatric Exam: Normal Affect and Normal Mood Skin Skin Exam: Warm, Dry, Intact and Normal Color COURSE Treatment Treatment: Discussed results of workup with patient. Patient agreeable to admission. 20 mg IV of Lasix were given in ER. Consultation Called: 06:16 Consultation Comments: Discussed case with Dr. Cisneros. She is agreeable to admission [facility]OR Labs Reviewed Laboratory Results Reviewed?: Yes 12/20/24 04:50 12/20/24 04:50 Laboratory: WBC 6.3 X10^3/uL (3.6-10.0) 12/20/24 04:50 RBC 2.79 X10^6/uL (3.5-5.4) L 12/20/24 04:50 Hgb 8.2 g/dL (12.0-16.0) L 12/20/24 04:50 Hct 24.0 % (36.0-47.0) L 12/20/24 04:50 MCV 86.1 fL (80.0-100.0) 12/20/24 04:50 MCH 29.5 pg (27.0-34.0) 12/20/24 04:50 MCHC 34.2 g/dL (33.0-35.0) 12/20/24 04:50 RDW 17.9 % (11.6-16.5) H 12/20/24 04:50 Plt Count 135 X10^3/uL (150.0-450.0) L 12/20/24 04:50 MPV 10.2 fL (7.4-11.0) 12/20/24 04:50 Neut % (Auto) 74.8 % (42.0-75.0) 12/20/24 04:50 Lymph % (Auto) 9.4 % (21.0-51.0) L 12/20/24 04:50 [place] % (Auto) 14.0 % (0.0-13.0) H 12/20/24 04:50 Eos % (Auto) 1.5 % (0.9-2.9) 12/20/24 04:50 Baso % (Auto) 0.3 % (0.2-1.0) 12/20/24 04:50 Neut # (Auto) 4.7 x10^3/uL (2.2-4.8) 12/20/24 04:50 Lymph # (Auto) 0.6 X10^3/uL (1.3-2.9) L 12/20/24 04:50 [place] # (Auto) 0.9 x10^3/uL (0.3-0.8) H 12/20/24 04:50 Eos # (Auto) 0.1 x10^3/uL (0.0-0.2) 12/20/24 04:50 Baso # (Auto) 0.0 X10^3/uL (0.0-0.1) 12/20/24 04:50 Absolute Nucleated RBC 0.2 /100WBC 12/20/24 04:50 PT 22.5 SECONDS (11.8-14.3) 12/20/24 04:50 INR Target Range - 12/20/24 04:50 INR 1.96 (0.8-1.3) H 12/20/24 04:50 APTT 40.3 SECONDS (22.9-36.5) H 12/20/24 04:50 PTT Comment - 12/20/24 04:50 Sodium 133 mmol/L (136-145) L 12/20/24 04:50 Corrected Sodium TNP 12/20/24 04:50 Potassium 4.0 mmol/L (3.5-5.1) 12/20/24 04:50 Chloride 101 mmol/L (98-107) 12/20/24 04:50 Carbon Dioxide 29.8 mmol/L (21-32) 12/20/24 04:50 BUN 31 mg/dL (7-18) H 12/20/24 04:50 Creatinine 1.31 mg/dL (0.55-1.02) H 12/20/24 04:50 Est GFR (MDRD) Af Amer 51 (>60) L 12/20/24 04:50 Est GFR (MDRD) Non-Af 42 (>60) L 12/20/24 04:50 Glucose 91 mg/dL (65-99) 12/20/24 04:50 Lactic Acid 0.8 mmol/L (0.4-2.0) 12/20/24 04:50 Calcium 7.3 mg/dL (8.5-10.1) L 12/20/24 04:50 Corrected Calcium 9.5 mg/dL (8.5-10.1) 12/20/24 04:50 Magnesium 1.9 mg/dL (2.0-2.9) L 12/20/24 04:50 Total Bilirubin 1.30 mg/dL (0.2-1.0) H 12/20/24 04:50 AST 40 Units/L (15-37) H 12/20/24 04:50 ALT 24 Units/L (12-78) 12/20/24 04:50 Alkaline Phosphatase 163 Units/L (46-116) H 12/20/24 04:50 Creatine Kinase 133 Units/L (26-192) 12/20/24 04:50 Troponin I High Sens 26.7 ng/L (4.0-60.0) 12/20/24 04:50 B-Natriuretic Peptide 244 pg/mL (0-79) H 12/20/24 04:50 Total Protein 5.2 g/dL (6.4-8.2) L 12/20/24 04:50 Albumin 1.3 g/dL (3.4-5.0) L 12/20/24 04:50 Globulin 3.9 g/dL (2.5-4.5) 12/20/24 04:50 Albumin/Globulin Ratio 0.3 Ratio (1.1-2.1) L 12/20/24 04:50 Specimen Type Catherized urine 12/20/24 05:17 Urine Color Yellow (YELLOW) 12/20/24 05:17 Urine Appearance Clear (CLEAR) 12/20/24 05:17 Urine pH 5.0 (5.0 - 8.0) 12/20/24 05:17 Ur Specific [place] 1.015 (1.000-1.030) 12/20/24 05:17 Urine Protein 2+ (NEGATIVE) 12/20/24 05:17 Urine Glucose (UA) Negative (NEGATIVE) 12/20/24 05:17 Urine Ketones Negative (NEGATIVE) 12/20/24 05:17 Urine Blood Negative (NEGATIVE) 12/20/24 05:17 Urine Nitrite Negative (NEGATIVE) 12/20/24 05:17 Urine Bilirubin Negative (NEGATIVE) 12/20/24 05:17 Urine Urobilinogen Normal (NORMAL) 12/20/24 05:17 Ur Leukocyte Esterase 1+ (NEGATIVE) 12/20/24 05:17 Urine RBC None seen /HPF (0-3) 12/20/24 05:17 Urine WBC 5-10 /HPF (0-5) A 12/20/24 05:17 Ur Squamous Epith Cells Numerous /HPF (NEGATIVE) 12/20/24 05:17 Ur Renal Epithelial Cell Many /HPF (NEGATIVE) 12/20/24 05:17 Urine Bacteria Negative /HPF (NEGATIVE) 12/20/24 05:17 Ur Culture Indicated? No/not indicated 12/20/24 05:17 XRAY XRAY Interpreted by: Self (Chest x-ray reviewed and interpreted by myself. Pulmonary edema and cardiomegaly.) Opioid Opioid Risk Tool Age (Terrence box if 16-45): No History of Preadolescent Sexual Abuse: No Total: 0 Total Score Risk Category: Low Risk Copyright: Junito EDWARDS predicting aberrant behaviors Discharge Plan Diagnosis Discharge Problem: Acute exacerbation of CHF (congestive heart failure), Respiratory failure, Acute on chronic kidney failure Discharge Plan Patient Disposition: 09 ADMITTED INPATIENT Condition: Stable Prescriptions: No Action amiodarone 200 mg tablet 200 mg PO BID spironolactone 25 mg tablet 25 mg PO BID levothyroxine 100 mcg tablet 100 mcg PO QDAY cephalexin 500 mg capsule 500 mg PO BID simvastatin 20 mg tablet 20 mg PO QPM warfarin 5 mg tablet 5 mg PO QDAY furosemide 20 mg tablet 20 mg PO QDAY metoprolol tartrate 25 mg tablet 25 mg PO QDAY Health Concerns: Post Hospitalization: new medications and changes needed to prevent readmission or further decline. Pt educated and given instructions on all concerns. Plan of Treatment: Continue with present treatment and follow up plan. Pt is to keep follow up appointment as instructed and take medications as ordered. Orders to Discharge Patient Discharge Orders: Transfer (Routine); Ordered 12/20/24 Ordered By: Esau Minor Follow ups/Referrals Follow ups/Referrals: MDMisc [Primary Care Provider] - 3 days Instructions Stand Alone Forms: Find Help Web Site, Post Hospital Follow Up Care Print Language: IRISH
--- NOTE | 2024-12-20 06:38 | RAD ---
EXAM: FRONTAL VIEW CHEST X-RAY HISTORY: Chest pain COMPARISON: 12/06/2024 FINDINGS: Diffus e multifocal alveolar airspace disease is seen throughout the right and left lung with cardiomegaly. This is worrisome for moderate degree to severe pulmonary edema. Implantable cardiac device and midline sternotomy wires are again seen. No lead wire fractures are seen. The mediastinum is unremarkable. There is no evidence of pleural effusion or gross pneumothorax. The trachea is midline. IMPRESSION: 1. Diffuse multifocal alveolar airspace disease is seen throughout the right and left lung with cardiomegaly. This is worrisome for moderate degree to severe pulmonary edema. This could represent congestive heart failure. 2. Implantable cardiac device and midline sternotomy wires are again seen. No lead wire fractures are seen. THIS IS AN ELECTRONICALLY VERIFIED FINAL REPORT 12/20/2024 6:34 AM - Electronically signed by Min Longoria MD
[2024-12-20] MEDS: LASIX IVP ONE ×2 (06:42→06:43)
[2024-12-20] MEDS: NS 1,000 ML IV 1,000 ML IV SCH (06:42)
[2024-12-20] MEDS ORDERED: TYLENOL 325 MG TAB PO PRN (07:47)
[2024-12-20] MEDS ORDERED: NORCO 5/325 MG TAB PO PRN (07:47)
[2024-12-20] MEDS ORDERED: ULTRAM PO PRN (07:47)
[2024-12-20] MEDS: PULMICORT NEB TX 0.5 MG NEB SCH (08:15)
[2024-12-20] MEDS: XOPENEX 1.25 MG/3 ML NEBULE NEB SCH (08:15)
[2024-12-20] MEDS: NS 1,000 ML IV 1,000 ML ONE (08:40)
[2024-12-20] MEDS: CONSULT PHARMACY - POTASSIUM & MAGNESIUM XX SCH (08:40)
--- NOTE | 2024-12-20 10:21 | DR.H&P ---
H&P History & Physical for Day of: H&P Date: 12/20/24 Chief Complaint Chief Complaint: SOB, edema History of Present Illness History of Present Illness: Patient is a 74-year-old female with a past medical history of CHF, COPD, chronic respiratory failure on home oxygen, CAD, valve replacement, CKD, CVA, hypertension presented with worsening shortness of breath and lower extremity edema. She was recently in [facility] for a week for similar symptoms and discharged yesterday. She states after she got home, she was not feeling well and decided to come to the ER in [place]. She reports taking her medications as prescribed. She is currently on 3 L home oxygen. ER workup showed hemoglobin 8.2, elevated BNP, chest x-ray concerning for CHF. She was given IV Lasix and admitted for further evaluation. Labs/imaging reviewed: - WBC 6.3 hemoglobin 8.2 platelet 135 potassium 4 magnesium 1.9 creatinine 1.31 - INR 1.96 - Chest x-ray: CHF Plan: Admit to [facility] with telemetry. Wean O2 as tolerated. Strict I's and O's, daily weight. Start Lasix 20 mg IV daily. Monitor blood pressure. Replace electrolytes as per protocol. Resume home medications. Physical therapy as tolerated. Monitor a.m. labs and imaging. Time spent for clinical assessment, reviewing labs and imaging, physical exam, decision making and documentation greater than 45 minutes. Past Medical History Past Medical History: Arthritis, CHF, COPD, Coronary Artery Disease, CVA, Hypertension, Liver Disease, [place] and Renal Disease Additional Medical History: Coumadin Therapy, Cataracts, TIA, Muscle Weakness, Back Pain, Degenerative Disc Disease, Previous Blood Transfusion Past Surgical History Surgical History: and CABG/Valve Surgery Additional Surgical History: Pacemaker Family History Family Medical History: [place] and Coronary Artery Disease Social History Does patient currently use any type of tobacco product: No Have you used tobacco products in the last 12 months: No Type of Tobacco Use: None Does any household member use tobacco: No Alcohol Use: None Medications Home Medications: Home Medications Medication Instructions Recorded Confirmed Type amiodarone 200 mg tablet 200 mg PO BID 12/20/2412/20 History cephalexin 500 mg capsule 500 mg PO BID 12/20/2412/20 History furosemide 20 mg tablet 20 mg PO QDAY 12/20/2412/20 History levothyroxine 100 mcg tablet 100 mcg PO QDAY 12/20/24 12/20/24 History metoprolol tartrate 25 mg tablet 25 mg PO QDAY 5 12/20/24 History simvastatin 20 mg tablet 20 mg PO QPM 12/20/24 History spironolactone 25 mg tablet 25 mg PO BID 12/20/2412/06 History warfarin 5 mg tablet 5 mg PO QDAY 12/20/24 History Allergies Allergies Allergy/AdvReac Type Severity Reaction Status Date / Time No Known Drug Allergies Allergy Unknown Verified 12/20/24 04:39 Labs 12/20/24 04:50 12/20/24 04:50 Labs: Laboratory WBC 6.3 X10^3/uL (3.6-10.0) 12/20/24 04:50 RBC 2.79 X10^6/uL (3.5-5.4) L 12/20/24 04:50 Hgb 8.2 g/dL (12.0-16.0) L 12/20/24 04:50 Hct 24.0 % (36.0-47.0) L 12/20/24 04:50 MCV 86.1 fL (80.0-100.0) 12/20/24 04:50 MCH 29.5 pg (27.0-34.0) 12/20/24 04:50 MCHC 34.2 g/dL (33.0-35.0) 12/20/24 04:50 RDW 17.9 % (11.6-16.5) H 12/20/24 04:50 Plt Count 135 X10^3/uL (150.0-450.0) L 12/20/24 04:50 MPV 10.2 fL (7.4-11.0) 12/20/24 04:50 Neut % (Auto) 74.8 % (42.0-75.0) 12/20/24 04:50 Lymph % (Auto) 9.4 % (21.0-51.0) L 12/20/24 04:50 [place] % (Auto) 14.0 % (0.0-13.0) H 12/20/24 04:50 Eos % (Auto) 1.5 % (0.9-2.9) 12/20/24 04:50 Baso % (Auto) 0.3 % (0.2-1.0) 12/20/24 04:50 Neut # (Auto) 4.7 x10^3/uL (2.2-4.8) 12/20/24 04:50 Lymph # (Auto) 0.6 X10^3/uL (1.3-2.9) L 12/20/24 04:50 [place] # (Auto) 0.9 x10^3/uL (0.3-0.8) H 12/20/24 04:50 Eos # (Auto) 0.1 x10^3/uL (0.0-0.2) 12/20/24 04:50 Baso # (Auto) 0.0 X10^3/uL (0.0-0.1) 12/20/24 04:50 Absolute Nucleated RBC 0.2 /100WBC 12/20/24 04:50 PT 22.5 SECONDS (11.8-14.3) 12/20/24 04:50 INR Target Range - 12/20/24 04:50 INR 1.96 (0.8-1.3) H 12/20/24 04:50 APTT 40.3 SECONDS (22.9-36.5) H 12/20/24 04:50 PTT Comment - 12/20/24 04:50 Sodium 133 mmol/L (136-145) L 12/20/24 04:50 Corrected Sodium TNP 12/20/24 04:50 Potassium 4.0 mmol/L (3.5-5.1) 12/20/24 04:50 Chloride 101 mmol/L (98-107) 12/20/24 04:50 Carbon Dioxide 29.8 mmol/L (21-32) 12/20/24 04:50 BUN 31 mg/dL (7-18) H 12/20/24 04:50 Creatinine 1.31 mg/dL (0.55-1.02) H 12/20/24 04:50 Est GFR (MDRD) Af Amer 51 (>60) L 12/20/24 04:50 Est GFR (MDRD) Non-Af 42 (>60) L 12/20/24 04:50 Glucose 91 mg/dL (65-99) 12/20/24 04:50 Lactic Acid 0.8 mmol/L (0.4-2.0) 12/20/24 04:50 Calcium 7.3 mg/dL (8.5-10.1) L 12/20/24 04:50 Corrected Calcium 9.5 mg/dL (8.5-10.1) 12/20/24 04:50 Magnesium 1.9 mg/dL (2.0-2.9) L 12/20/24 04:50 Total Bilirubin 1.30 mg/dL (0.2-1.0) H 12/20/24 04:50 AST 40 Units/L (15-37) H 12/20/24 04:50 ALT 24 Units/L (12-78) 12/20/24 04:50 Alkaline Phosphatase 163 Units/L (46-116) H 12/20/24 04:50 Creatine Kinase 133 Units/L (26-192) 12/20/24 04:50 Troponin I High Sens 26.7 ng/L (4.0-60.0) 12/20/24 04:50 B-Natriuretic Peptide 244 pg/mL (0-79) H 12/20/24 04:50 Total Protein 5.2 g/dL (6.4-8.2) L 12/20/24 04:50 Albumin 1.3 g/dL (3.4-5.0) L 12/20/24 04:50 Globulin 3.9 g/dL (2.5-4.5) 12/20/24 04:50 Albumin/Globulin Ratio 0.3 Ratio (1.1-2.1) L 12/20/24 04:50 Specimen Type Catherized urine 12/20/24 05:17 Urine Color Yellow (YELLOW) 12/20/24 05:17 Urine Appearance Clear (CLEAR) 12/20/24 05:17 Urine pH 5.0 (5.0 - 8.0) 12/20/24 05:17 Ur Specific [place] 1.015 (1.000-1.030) 12/20/24 05:17 Urine Protein 2+ (NEGATIVE) 12/20/24 05:17 Urine Glucose (UA) Negative (NEGATIVE) 12/20/24 05:17 Urine Ketones Negative (NEGATIVE) 12/20/24 05:17 Urine Blood Negative (NEGATIVE) 12/20/24 05:17 Urine Nitrite Negative (NEGATIVE) 12/20/24 05:17 Urine Bilirubin Negative (NEGATIVE) 12/20/24 05:17 Urine Urobilinogen Normal (NORMAL) 12/20/24 05:17 Ur Leukocyte Esterase 1+ (NEGATIVE) 12/20/24 05:17 Urine RBC None seen /HPF (0-3) 12/20/24 05:17 Urine WBC 5-10 /HPF (0-5) A 12/20/24 05:17 Ur Squamous Epith Cells Numerous /HPF (NEGATIVE) 12/20/24 05:17 Ur Renal Epithelial Cell Many /HPF (NEGATIVE) 12/20/24 05:17 Urine Bacteria Negative /HPF (NEGATIVE) 12/20/24 05:17 Ur Culture Indicated? No/not indicated 12/20/24 05:17 Review of Systems Constitutional: Weakness Eyes: No Symptoms Reported ENT: No Symptoms Reported Respiratory: Shortness of Breath and SOB with Excertion Cardiovascular: Orthopnea and Edema Gastrointestinal: No Symptoms Reported Genitourinary: No Symptoms Reported Musculoskeletal: Leg Pain Skin: Other (chronic LE venous stasis ) Neurological: No Symptoms Reported Physical Exam Vital Signs: Vital Signs Temperature 97.8 F Temperature 98.5 F Pulse Rate [Left] 79 Pulse Rate 77 Pulse Rate 79 Pulse Rate 79 Pulse Rate 72 Pulse Rate 65 Pulse Rate 66 Pulse Rate 66 Pulse Rate 66 Pulse Rate 76 Pulse Rate 68 Pulse Rate 69 Pulse Rate 69 Pulse Rate 93 Pulse Rate 81 Pulse Rate 71 Pulse Rate 84 Respiratory Rate 20 Respiratory Rate 18 Respiratory Rate 18 Respiratory Rate 25 Respiratory Rate 12 Respiratory Rate 10 Respiratory Rate 9 Respiratory Rate 13 Respiratory Rate 19 Respiratory Rate 20 Respiratory Rate 12 Respiratory Rate 11 Respiratory Rate 11 Respiratory Rate 18 Respiratory Rate 28 Blood Pressure [Left Arm] 113/54 Blood Pressure 102/55 Blood Pressure 97/51 Blood Pressure 102/53 Blood Pressure 90/52 Blood Pressure 98/50 Blood Pressure 106/53 Blood Pressure 104/52 Blood Pressure 107/53 O2 Sat by Pulse Oximetry 96 O2 Sat by Pulse Oximetry 98 O2 Sat by Pulse Oximetry 98 O2 Sat by Pulse Oximetry 98 O2 Sat by Pulse Oximetry 100 O2 Sat by Pulse Oximetry 100 O2 Sat by Pulse Oximetry 100 O2 Sat by Pulse Oximetry 98 O2 Sat by Pulse Oximetry 99 O2 Sat by Pulse Oximetry 100 O2 Sat by Pulse Oximetry 100 O2 Sat by Pulse Oximetry 99 O2 Sat by Pulse Oximetry 98 O2 Sat by Pulse Oximetry 95 O2 Sat by Pulse Oximetry 95 O2 Sat by Pulse Oximetry 94 Oriented: Normal Throat: Dry Respiratory: Diminished Throughout and [place] Throughout Cardiovascular: Edema Auscultation: Bowel Sounds: Normal Palpation: Normal Tenderness: Normal Skin: Red Musculoskeletal: Leg Psychiatric: Normal Mood Description: Calm Affect: Normal Speech Pattern: Clear and Appropriate Assessment/Plan (1) Respiratory failure: Qualifiers: Chronicity: acute on chronic Respiratory failure complication: hypoxia Qualified Code(s): J96.21 - Acute and chronic respiratory failure with hypoxia Status: Acute (2) Acute exacerbation of CHF (congestive heart failure): Qualifiers: Heart failure type: unspecified Qualified Code(s): I50.9 - Heart failure, unspecified Status: Acute (3) Acute on chronic kidney failure: Qualifiers: Acute renal failure type: unspecified Chronic kidney disease stage: u nspecified stage Qualified Code(s): N17.9 - Acute kidney failure, unspecified; N18.9 - Chronic kidney disease, unspecified Status: Acute (4) Generalized weakness: Status: Chronic (5) Hypertension: Qualifiers: Hypertension type: primary hypertension Qualified Code(s): I10 - Essential (primary) hypertension Status: Chronic (6) COPD (chronic obstructive pulmonary disease): Qualifiers: COPD type: unspecified COPD Qualified Code(s): J44.9 - Chronic obstructive pulmonary disease, unspecified Status: Chronic (7) A-fib: Qualifiers: Atrial fibrillation type: unspecified chronic Qualified Code(s): I48.20 - Chronic atrial fibrillation, unspecified Status: Chronic Review H&P Reviewed: Yes Patient was examined?: Yes
[2024-12-20] MEDS: COUMADIN TAB 5 MG (JANTOVEN) PO SCH (10:39)
[2024-12-20] MEDS: MAG-OX TAB PO SCH (10:39)
[2024-12-20] MEDS: CORDARONE TAB 200 MG PO SCH (10:39)
[2024-12-20] MEDS: LOPRESSOR TAB 25 MG PO SCH (10:40)
[2024-12-20] MEDS: ZOCOR TAB 20 MG PO SCH (20:21)
[2024-12-21 06:09] LABS: MEAN PLATELET VOLUME 10.2 fL (7.4-11.0); RED CELL DISTRIBUTION WIDTH 17.8 % (11.6-16.5)
[2024-12-21 06:22] LABS: COR CA(FOR HYPOALB) 9.3 mg/dL (8.5-10.1); CREATININE 1.31 mg/dL (0.55-1.02); eGFR NON BLACK RACES 42 (>60)
[2024-12-21] MEDS ORDERED: NS 250 ML IV 250 ML IV ONE (09:38)
[2024-12-21] MEDS: NS 250 ML IV 25 ML IV PRN (09:40)
[2024-12-21] MEDS: LASIX IVP SCH (09:41)
[2024-12-21] MEDS: ALBUMIN HUMAN 25%- 100 ML 100 ML IV SCH (09:41)
--- NOTE | 2024-12-21 10:59 | PCM.PROG ---
Progress Note Progress Note for Day of Date of Exam: 12/21/24 Subjective Subjective: Patient seen at bedside, no acute events overnight. She is currently admitted for CHF exacerbation. She remains on 3 L nasal cannula. Her lower extremity edema is slightly better today. Labs/imaging reviewed: - WBC 6 hemoglobin 8.2 creatinine 1.31 potassium 4 Plan: Continue telemetry, IV Lasix. Monitor I's and O's. Add albumin. Replace electrolytes as per protocol. Physical therapy evaluation. Continue home medications. Monitor a.m. labs and imaging. Past Medical Family Social History Allergies: Allergies No Known Drug Allergies Allergy (Unknown, Verified 12/20/24 04:39) Onset Date: 11/23/2014 Vital Signs and I&O's Vital Signs: Vital Signs Temperature 97.6 F Pulse Rate [Left] 65 Pulse Rate 79 Respiratory Rate 18 Blood Pressure [Right Arm] 114/56 O2 Sat by Pulse Oximetry 92 O2 Sat by Pulse Oximetry 93 Intake and Output: Intake & Output 12/18/24 12/19/24 12/20/24 12/21/24 23:59 23:59 23:59 23:59 Intake Total 553 / 553 230 / 230 Output Total 500 / 500 100 / 100 Balance 53 / 53 130 / 130 Physical Exam Oriented: Normal Throat: Dry Cardiovascular: Edema Auscultation: Bowel Sounds: Normal Palpation: Normal Tenderness: Normal Skin: Red Musculoskeletal: Leg Psychiatric: Normal Mood Description: Calm Affect: Normal Speech Pattern: Clear and Appropriate Laboratory and Diagnostics 12/21/24 05:49 12/21/24 05:49 Labs: Laboratory WBC 6.0 X10^3/uL (3.6-10.0) 12/21/24 05:49 RBC 2.79 X10^6/uL (3.5-5.4) L 12/21/24 05:49 Hgb 8.2 g/dL (12.0-16.0) L 12/21/24 05:49 Hct 24.3 % (36.0-47.0) L 12/21/24 05:49 MCV 86.9 fL (80.0-100.0) 12/21/24 05:49 MCH 29.5 pg (27.0-34.0) 12/21/24 05:49 MCHC 33.9 g/dL (33.0-35.0) 12/21/24 05:49 RDW 17.8 % (11.6-16.5) H 12/21/24 05:49 Plt Count 140 X10^3/uL (150.0-450.0) L 12/21/24 05:49 MPV 10.2 fL (7.4-11.0) 12/21/24 05:49 Neut % (Auto) 71.2 % (42.0-75.0) 12/21/24 05:49 Lymph % (Auto) 8.6 % (21.0-51.0) L 12/21/24 05:49 [place] % (Auto) 13.9 % (0.0-13.0) H 12/21/24 05:49 Eos % (Auto) 4.3 % (0.9-2.9) H 12/21/24 05:49 Baso % (Auto) 2.0 % (0.2-1.0) H 12/21/24 05:49 Neut # (Auto) 4.3 x10^3/uL (2.2-4.8) 12/21/24 05:49 Lymph # (Auto) 0.5 X10^3/uL (1.3-2.9) L 12/21/24 05:49 [place] # (Auto) 0.8 x10^3/uL (0.3-0.8) 12/21/24 05:49 Eos # (Auto) 0.3 x10^3/uL (0.0-0.2) H 12/21/24 05:49 Baso # (Auto) 0.1 X10^3/uL (0.0-0.1) 12/21/24 05:49 Absolute Nucleated RBC 0.0 /100WBC 12/21/24 05:49 PT 22.5 SECONDS (11.8-14.3) 12/20/24 04:50 INR Target Range - 12/20/24 04:50 INR 1.96 (0.8-1.3) H 12/20/24 04:50 APTT 40.3 SECONDS (22.9-36.5) H 12/20/24 04:50 PTT Comment - 12/20/24 04:50 Sodium 133 mmol/L (136-145) L 12/21/24 05:49 Corrected Sodium TNP 12/21/24 05:49 Potassium 4.0 mmol/L (3.5-5.1) 12/21/24 05:49 Chloride 101 mmol/L (98-107) 12/21/24 05:49 Carbon Dioxide 26.1 mmol/L (21-32) 12/21/24 05:49 BUN 34 mg/dL (7-18) H 12/21/24 05:49 Creatinine 1.31 mg/dL (0.55-1.02) H 12/21/24 05:49 Est GFR (MDRD) Af Amer 51 (>60) L 12/21/24 05:49 Est GFR (MDRD) Non-Af 42 (>60) L 12/21/24 05:49 Glucose 95 mg/dL (65-99) 12/21/24 05:49 Lactic Acid 0.8 mmol/L (0.4-2.0) 12/20/24 04:50 Calcium 7.3 mg/dL (8.5-10.1) L 12/21/24 05:49 Corrected Calcium 9.3 mg/dL (8.5-10.1) 12/21/24 05:49 Magnesium 2.1 mg/dL (2.0-2.9) 12/21/24 05:49 Total Bilirubin 0.80 mg/dL (0.2-1.0) 12/21/24 05:49 AST 46 Units/L (15-37) H 12/21/24 05:49 ALT 25 Units/L (12-78) 12/21/24 05:49 Alkaline Phosphatase 170 Units/L (46-116) H 12/21/24 05:49 Creatine Kinase 133 Units/L (26-192) 12/20/24 04:50 Troponin I High Sens 26.7 ng/L (4.0-60.0) 12/20/24 04:50 B-Natriuretic Peptide 244 pg/mL (0-79) H 12/20/24 04:50 Total Protein 4.8 g/dL (6.4-8.2) L 12/21/24 05:49 Albumin 1.5 g/dL (3.4-5.0) L 12/21/24 05:49 Globulin 3.3 g/dL (2.5-4.5) 12/21/24 05:49 Albumin/Globulin Ratio 0.5 Ratio (1.1-2.1) L 12/21/24 05:49 Specimen Type Catherized urine 12/20/24 05:17 Urine Color Yellow (YELLOW) 12/20/24 05:17 Urine Appearance Clear (CLEAR) 12/20/24 05:17 Urine pH 5.0 (5.0 - 8.0) 12/20/24 05:17 Ur Specific [place] 1.015 (1.000-1.030) 12/20/24 05:17 Urine Protein 2+ (NEGATIVE) 12/20/24 05:17 Urine Glucose (UA) Negative (NEGATIVE) 12/20/24 05:17 Urine Ketones Negative (NEGATIVE) 12/20/24 05:17 Urine Blood Negative (NEGATIVE) 12/20/24 05:17 Urine Nitrite Negative (NEGATIVE) 12/20/24 05:17 Urine Bilirubin Negative (NEGATIVE) 12/20/24 05:17 Urine Urobilinogen Normal (NORMAL) 12/20/24 05:17 Ur Leukocyte Esterase 1+ (NEGATIVE) 12/20/24 05:17 Urine RBC None seen /HPF (0-3) 12/20/24 05:17 Urine WBC 5-10 /HPF (0-5) A 12/20/24 05:17 Ur Squamous Epith Cells Numerous /HPF (NEGATIVE) 12/20/24 05:17 Ur Renal Epithelial Cell Many /HPF (NEGATIVE) 12/20/24 05:17 Urine Bacteria Negative /HPF (NEGATIVE) 12/20/24 05:17 Ur Culture Indicated? No/not indicated 12/20/24 05:17 Plan (1) Respiratory failure: Status: Acute Qualifiers: Chronicity: acute on chronic Respiratory failure complication: hypoxia Qualified Code(s): J96.21 - Acute and chronic respiratory failure with hypoxia (2) Acute exacerbation of CHF (congestive heart failure): Status: Acute Qualifiers: Heart failure type: unspecified Qualified Code(s): I50.9 - Heart failure, unspecified (3) Acute on chronic kidney failure: Status: Acute Qualifiers: Acute renal failure type: unspecified Chronic kidney disease stage: u nspecified stage Qualified Code(s): N17.9 - Acute kidney failure, unspecified; N18.9 - Chronic kidney disease, unspecified (4) Generalized weakness: Status: Chronic (5) Hypertension: Status: Chronic Qualifiers: Hypertension type: primary hypertension Qualified Code(s): I10 - Essential (primary) hypertension (6) COPD (chronic obstructive pulmonary disease): Status: Chronic Qualifiers: COPD type: unspecified COPD Qualified Code(s): J44.9 - Chronic obstructive pulmonary disease, unspecified (7) A-fib: Status: Chronic Qualifiers: Atrial fibrillation type: unspecified chronic Qualified Code(s): I48.20 - Chronic atrial fibrillation, unspecified
[2024-12-22 04:48] VITALS: TEMP 98.1
[2024-12-22 06:53] LABS: MEAN PLATELET VOLUME 10.4 fL (7.4-11.0); RED CELL DISTRIBUTION WIDTH 18.4 % (11.6-16.5)
[2024-12-22 07:10] LABS: COR CA(FOR HYPOALB) 9.2 mg/dL (8.5-10.1); CREATININE 1.36 mg/dL (0.55-1.02); eGFR NON BLACK RACES 40 (>60)
[2024-12-22 09:09] VITALS: O2SAT 96
[2024-12-22 10:38] VITALS: BP 112/57
[2024-12-22 10:39] VITALS: PULSE 79; RESP 20
[2024-12-22] MEDS ORDERED: LASIX PO SCH (21:00)
[2024-12-23] MEDS ORDERED: LOPRESSOR TAB 25 MG PO SCH (09:00)
== END 2024-12-22 11:30 | disposition home health service (06) ==
LOC: SUPCPDRO → MED/SURG 04:30 → ER 04:30 → MED/SURG 07:38
PROVIDERS: ADMIT Internal Medicine; ATTEND Internal Medicine
DX: I25.10 Atherosclerotic heart disease of native coronary artery without angina pectoris; E83.42 Hypomagnesemia; E80.6 Other disorders of bilirubin metabolism; R60.0 Localized edema; Z65.8 Other specified problems related to psychosocial circumstances; N18.9 Chronic kidney disease, unspecified; M19.90 Unspecified osteoarthritis, unspecified site; S80.821A Blister (nonthermal), right lower leg, initial encounter; R53.1 Weakness; J96.21 Acute and chronic respiratory failure with hypoxia; I11.0 Hypertensive heart disease with heart failure; I48.20 Chronic atrial fibrillation, unspecified; I50.89 Other heart failure; S41.111A Laceration without foreign body of right upper arm, initial encounter; N17.8 Other acute kidney failure; R74.01 Elevation of levels of liver transaminase levels; R94.31 Abnormal electrocardiogram [ECG] [EKG]; Z95.2 Presence of prosthetic heart valve; R26.89 Other abnormalities of gait and mobility; Z60.8 Other problems related to social environment; R79.1 Abnormal coagulation profile; Z99.81 Dependence on supplemental oxygen; J44.9 Chronic obstructive pulmonary disease, unspecified; Y92.9 Unspecified place or not applicable; X58.XXXA Exposure to other specified factors, initial encounter; E87.1 Hypo-osmolality and hyponatremia; E83.51 Hypocalcemia

== ENCOUNTER 2025-01-06 16:51 | Observation (INO) ==
--- NOTE | 2025-01-06 17:30 | DR.GENAD ---
HPI Time Seen Time Seen by Provider: 01/06/25 17:28 PCP Primary Care Physician: Xenia Christiansen Complaint/Symptoms Chief Complaint Doctors Comments: Patient complain of shortness of breath for 2 to 3 months but states he got worse today. Patient states she has had to have a paracentesis for this shortness of breath in the past. States that her legs are now swollen and weeping. And the abdomen is tight and distended. Chief Complaint:: Patient states that she has been having increased shortness of breath for the last 2-3 months which became worse today. Patient states that she has had to have a paracentesis in the past for this same issue. Lower legs swollen and weeping. Abdomen tight and distended to touch. Self Treatment fo Chief Complaint: Patient states that she has taken her home medication of lasix to help with the swelling with no relief. COVID-19 Coronavirus risk:travel/contact w/high risk person: No Has patient experienced Coronavirus symptoms: No Source History Provided: Patient Mode of Arrival Mode of Arrival: EMS Timing Onset of Chief Complaint: 01/06/25 PMH PMH Past Medical History: Yes Past Medical History: Arthritis, CHF, COPD, Coronary Artery Disease, CVA, Hypertension, Liver Disease, [place] and Renal Disease Past Surgical History: Yes Surgical History: and CABG/Valve Surgery Past Surgical History Comment: pacemaker Family History History of Family Medical Conditions: Yes Family Medical History: [place] and Coronary Artery Disease Social History Does patient currently use any type of tobacco product: No Have you used tobacco products in the last 12 months: No Type of Tobacco Use: None Does any household member use tobacco: No Alcohol Use: None Do you use any recreational Drugs:: No Lives With: Family Lives Where: Home Travel Risk Coronavirus risk:travel/contact w/high risk person: No Has patient experienced Coronavirus symptoms: No Infectious screening Have you traveled outside the country in the last 6 months?: No Isolation: Standard ROS Review of Systems Constitutional: Other (shortness of breath and peripheral edema with anasarca,history of ascites) Eyes: No Symptoms Reported ENTM: No Symptoms Reported Respiratoy: Short of Breath Cardiovascular: No Symptoms Reported Gastrointestinal/Abdominal: No Symptoms Reported Genitourinary: No Symptoms Reported Neurological: No Symptoms Reported Musculoskeletal: No Symptoms Reported Integumentary: No Symptoms Reported Hematologic/Lymphatic: No Symptoms Reported Endocrine: No Symptoms Reported Psychiatric: No Symptoms Reported All Other Systems: Reviewed and Negative PE Vital Signs Vitals: Vital Signs Pulse Rate 60 Pulse Rate 75 Pulse Rate 61 Pulse Rate 66 Pulse Rate 68 Pulse Rate 60 Pulse Rate 64 Pulse Rate 84 Pulse Rate 80 Pulse Rate 60 Pulse Rate 63 Pulse Rate 92 Pulse Rate 66 Pulse Rate 76 Pulse Rate 67 Pulse Rate 62 Pulse Rate 73 Pulse Rate 61 Pulse Rate 63 Pulse Rate 60 Pulse Rate 69 Pulse Rate 75 Pulse Rate 61 Pulse Rate 70 Pulse Rate 75 Pulse Rate 75 Pulse Rate 75 Pulse Rate 92 Pulse Rate 76 Pulse Rate 83 Pulse Rate 75 Pulse Rate 75 Pulse Rate 75 Respiratory Rate 12 Respiratory Rate 29 Respiratory Rate 11 Respiratory Rate 30 Respiratory Rate 24 Respiratory Rate 16 Respiratory Rate 17 Respiratory Rate 17 Respiratory Rate 26 Respiratory Rate 11 Respiratory Rate 12 Respiratory Rate 15 Respiratory Rate 26 Respiratory Rate 14 Respiratory Rate 17 Respiratory Rate 17 Respiratory Rate 22 Respiratory Rate 14 Respiratory Rate 17 Respiratory Rate 18 Respiratory Rate 15 Respiratory Rate 19 Respiratory Rate 12 Respiratory Rate 13 Respiratory Rate 13 Respiratory Rate 16 Respiratory Rate 17 Respiratory Rate 17 Respiratory Rate 14 Respiratory Rate 25 Respiratory Rate 16 Respiratory Rate 13 Respiratory Rate 13 Blood Pressure 94/55 Blood Pressure 101/54 Blood Pressure 101/54 Blood Pressure 101/54 Blood Pressure 98/54 Blood Pressure 102/59 Blood Pressure 95/52 Blood Pressure 95/52 Blood Pressure 107/58 Blood Pressure 107/53 Blood Pressure 105/55 Blood Pressure 99/54 Blood Pressure 99/54 Blood Pressure 131/59 Blood Pressure 96/50 Blood Pressure 98/51 Blood Pressure 92/53 Blood Pressure 106/56 Blood Pressure 102/51 O2 Sat by Pulse Oximetry 93 O2 Sat by Pulse Oximetry 93 O2 Sat by Pulse Oximetry 93 O2 Sat by Pulse Oximetry 90 O2 Sat by Pulse Oximetry 90 O2 Sat by Pulse Oximetry 92 O2 Sat by Pulse Oximetry 94 O2 Sat by Pulse Oximetry 92 O2 Sat by Pulse Oximetry 99 O2 Sat by Pulse Oximetry 99 O2 Sat by Pulse Oximetry 99 O2 Sat by Pulse Oximetry 98 General Limitations: Physical Limitation (due to peripheral edema and anasarca) General Appearance: Alert and In Distress (mild distress) Head Head Exam: Normal Inspection Eyes Eye exam: Normal Appearance ENT ENT Exam: Normal Exam and Normal Oropharynx External Ear Exam: Normal External Inspection TM/Canal Exam: Bilateral: Normal Neck Neck Exam: Normal Inspection Chest Chest Inspection: Normal Inspection and Symmetric Chest Wall Rise Respiratory Respiratory Exam: Normal Lung Sounds Bilat Cardiovascular Cardiovascular Exam: Regular Rate Abdominal Exam Abdominal Exam: Distention Extremities Extremities Exam: Edema Back Back Exam: Normal Inspection and Full ROM Neurologic Neurological Exam: Alert Psychiatric Psychiatric Exam: Depressed Skin Skin Exam: Warm, Dry and Intact MDM Differential Diagnosis Differential Diagnosis: chf,anasaca,ascites,elevated inr COURSE Treatment Treatment: Patient remained relatively stable during ER visit. We did a workup on the patient initially we were evaluated for CHF we did a BNP that was elevated somewhat to 92 we did a chest x-ray did show maybe did consult decompensated congestive heart failure may be could be also underlying pneumonia is difficult to exclude and assess pleural effusion also was present. We did a CT scan abdomen pelvis that showed moderate ascites with anasarca and bilateral pleural effusion. Patient initially had a INR done which was 8.98 and she was given 5 mg of vitamin K IV and we did repeat the INR it had decreased to 2.60. Patient was given 40 mg of Lasix IV for her history of CHF and we did call the case management team and they said the patient could be referred to observation for CT treatment of mild CHF and anasarca. We had talked to Dr. Schwab at [phone] but this patient is a receptive to the hospital for further treatment. Patient was made aware that she would be admitted to the hospital for further treatment. ROR Labs Reviewed Laboratory Results Reviewed?: Yes 01/06/25 18:22 01/06/25 18:22 Laboratory: WBC 4.0 X10^3/uL (3.6-10.0) 01/06/25 18: RBC 2.92 X10^6/uL (3.5-5.4) L 01/06/25 18:22 Hgb 8.3 g/dL (12.0-16.0) L 01/06/25 18:22 Hct 25.6 % (36.0-47.0) L 01/06/25 18:22 MCV 87.8 fL (80.0-100.0) 01/06/25 18:22 MCH 28.4 pg (27.0-34.0) 01/06/25 18: MCHC 32.3 g/dL (33.0-35.0) L 01/06/25 18: RDW 18.6 % (11.6-16.5) H 01/06/25 18:22 Plt Count 157 X10^3/uL (150.0-450.0) 01/06/25 18:22 MPV 10.1 fL (7.4-11.0) 01/06/25 18:22 Neut % (Auto) 58.7 % (42.0-75.0) 01/06/25 18:22 Lymph % (Auto) 17.7 % (21.0-51.0) L 01/06/25 18:22 [place] % (Auto) 16.2 % (0.0-13.0) H 01/06/25 18:22 Eos % (Auto) 4.0 % (0.9-2.9) H 01/06/25 18:22 Baso % (Auto) 3.4 % (0.2-1.0) H 01/06/25 18:22 Neut # (Auto) 2.4 x10^3/uL (2.2-4.8) 01/06/25 18:22 Lymph # (Auto) 0.7 X10^3/uL (1.3-2.9) L 01/06/25 18:22 [place] # (Auto) 0.7 x10^3/uL (0.3-0.8) 01/06/25 18:22 Eos # (Auto) 0.2 x10^3/uL (0.0-0.2) 01/06/25 18:22 Baso # (Auto) 0.1 X10^3/uL (0.0-0.1) 01/06/25 18:22 Absolute Nucleated RBC 0.1 /100WBC 01/06/25 18:22 PT 28.0 SECONDS (11.8-14.3) 01/07/25 01:52 INR Target Range - 01/07/25 01:52 INR 2.60 (0.8-1.3) H 01/07/25 01:52 APTT 90.8 SECONDS (22.9-36.5) H 01/06/25 18:22 PTT Comment - 01/06/25 18:22 D-Dimer 0.38 ug/ml (0.0-0.57) 01/06/25 18:22 Sodium 137 mmol/L (136-145) 01/06/25 18:22 Corrected Sodium 137 mmol/L (136-145) 01/06/25 18:22 Potassium 3.8 mmol/L (3.5-5.1) 01/06/25 18:22 Chloride 105 mmol/L (98-107) 01/06/25 18:22 Carbon Dioxide 28.9 mmol/L (21-32) 01/06/25 18:22 BUN 26 mg/dL (7-18) H 01/06/25 18:22 Creatinine 1.32 mg/dL (0.55-1.02) H 01/06/25 18:22 Est GFR (MDRD) Af Amer 50 (>60) L 01/06/25 18:22 Est GFR (MDRD) Non-Af 42 (>60) L 01/06/25 18:22 Glucose 120 mg/dL (65-99) H 01/06/25 18:22 Calcium 7.5 mg/dL (8.5-10.1) L 01/06/25 18:22 Corrected Calcium 9.4 mg/dL (8.5-10.1) 01/06/25 18:22 Total Bilirubin 0.60 mg/dL (0.2-1.0) 01/06/25 18:22 AST 37 Units/L (15-37) 01/06/25 18:22 ALT 27 Units/L (12-78) 01/06/25 18:22 Alkaline Phosphatase 129 Units/L (46-116) H 01/06/25 18:22 Creatine Kinase 49 Units/L (26-192) 01/06/25 18:22 Troponin I High Sens 9.8 ng/L (4.0-60.0) 01/06/25 18:22 B-Natriuretic Peptide 292 pg/mL (0-79) H 01/06/25 18:22 Total Protein 4.6 g/dL (6.4-8.2) L 01/06/25 18:22 Albumin 1.6 g/dL (3.4-5.0) L 01/06/25 18:22 Globulin 3.0 g/dL (2.5-4.5) 01/06/25 18:22 Albumin/Globulin Ratio 0.5 Ratio (1.1-2.1) L 01/06/25 18:22 Amylase 89 Units/L (25-115) 01/06/25 18:25 Lipase 54 Units/L (16-77) 01/06/25 18:25 Opioid Opioid Risk Tool Age (Terrence box if 16-45): No History of Preadolescent Sexual Abuse: No Total: 0 Total Score Risk Category: Low Risk Copyright: Junito EDWARDS predicting aberrant behaviors Discharge Plan Diagnosis Discharge Problem: Mild congestive heart failure, Anasarca, Elevated international normalized ratio (INR) Discharge Plan Patient Disposition: 09 ADMITTED INPATIENT Condition: Stable Orders to Discharge Patient Discharge Orders: Transfer (Routine); Ordered 01/07/25 Ordered By: Marbin Lorenzo
[2025-01-06 18:33] LABS: MEAN PLATELET VOLUME 10.1 fL (7.4-11.0); RED CELL DISTRIBUTION WIDTH 18.6 % (11.6-16.5)
[2025-01-06 18:50] LABS: INR 8.98 (0.8-1.3)
[2025-01-06 18:56] LABS: COR CA(FOR HYPOALB) 9.4 mg/dL (8.5-10.1); COR NA(FOR HYPERGLY) 137.0 mmol/L (136-145); CREATININE 1.32 mg/dL (0.55-1.02); eGFR NON BLACK RACES 42.0 (>60)
--- NOTE | 2025-01-06 18:59 | RAD ---
EXAM: CHEST, 1 VIEW HISTORY: shortness of breath; COMPARISON: Frontal chest radiograph December 28, 2024 TECHNIQUE: 1 frontal view of the chest FINDINGS: Pacemaker with power pack on the left. Median sternotomy wires. Heart silhouette is enlarged. Bilateral interstitial and airspace opacities are present which are [id number]. Silhouetting of the hemidiaphragms and blunting of the costophrenic angles. IMPRESSION: Findings most closely suggest decompensated congestive heart failure. Underlying pneumonia is difficult to exclude radiographically. Pleural effusions may be present. THIS IS AN ELECTRONICALLY VERIFIED FINAL REPORT 01/06/2025 6:56 PM - Electronically signed by Lalo Pina MD
[2025-01-06] MEDS ORDERED: AQUA-MEPHYTON ADULT INJ 5 MG in NS 50 ML IV 50 ML IV ONE (19:02)
[2025-01-06] MEDS: LASIX IVP PRN (20:24)
[2025-01-07 02:08] LABS: INR 2.60 (0.8-1.3)
--- NOTE | 2025-01-07 02:13 | CT ---
EXAM: CT ABDOMEN AND PELVIS WITHOUT CONTRAST HISTORY: ascites; Patient states that she has been having increased shortness of breath for the last 2-3 months which became worse today. Patient states that she has had to have a paracentesis in the past for this same issue. Lower legs swollen and weeping. Abdomen tight and distended to touch. COMPARISON: None TECHNIQUE: Axial images were obtained of the abdomen and pelvis without IV contrast. Sagittal and coronal reformatted images were provided. All images were reviewed in a variety of windows and levels. RADIATION REDUCTION TECHNIQUE: Automated exposure control, adjustment of the mA or kV according to patient size, or iterative reconstruction techniques were used. FINDINGS: Please note that lack of IV contrast does limit evaluation of the soft tissues and vascular detail. The visualized lower lung zones small bilateral pleural effusions and bibasilar atelectasis or consolidation. The heart size is moderately enlarged. There is no evidence of a pericardial effusion. The liver, spleen, pancreas, adrenal glands, are grossly unremarkable. The gallbladder is grossly unremarkable. Moderate volume ascites within the abdomen and pelvis. Generalized anasarca is also present. Mild bilateral renal atrophy. No renal calculi or hydronephrosis. There is atherosclerotic calcification within the abdominal aorta and branches without aneurysmal dilatation. The stomach, small bowel, and colon are grossly unremarkable. There are no inflammatory changes in the right lower quadrant to suggest secondary signs of acute appendicitis. Normal appendix right lower quadrant. There is no evidence of retroperitoneal or mesenteric lymphadenopathy. The visualized bones demonstrate degenerative changes. There are no concerning lytic or blastic lesions identified. IMPRESSION: Small bilateral pleural effusions and bibasilar atelectasis and/or consolidation. Moderate cardiomegaly. Moderate volume ascites within the abdomen and pelvis. Generalized anasarca. THIS IS AN ELECTRONICALLY VERIFIED FINAL REPORT 01/07/2025 2:10 AM - Electronically signed by Yusef White MD
[2025-01-07 04:53] VITALS: BMI 26.2
[2025-01-07 06:38] LABS: MEAN PLATELET VOLUME 10.3 fL (7.4-11.0); RED CELL DISTRIBUTION WIDTH 19.6 % (11.6-16.5)
[2025-01-07 06:43] LABS: COR CA(FOR HYPOALB) 9.8 mg/dL (8.5-10.1); CREATININE 1.22 mg/dL (0.55-1.02); eGFR NON BLACK RACES 46 (>60)
[2025-01-07 06:50] LABS: INR 2.32 (0.8-1.3)
[2025-01-07] MEDS: NS 50 ML IV 50 ML IV ONE (08:06)
[2025-01-07] MEDS: AQUA-MEPHYTON ADULT INJ ONE (08:06)
[2025-01-07] MEDS: AQUA-MEPHYTON ADULT INJ 5 MG in NS 50 ML IV 50 ML IV ONE (08:06)
[2025-01-07] MEDS: LASIX PO SCH (08:27)
[2025-01-07] MEDS: ALDACTONE TAB 25 MG PO SCH (08:27)
[2025-01-07] MEDS: CORDARONE TAB 200 MG PO SCH (08:28)
--- NOTE | 2025-01-07 12:01 | DR.H&P ---
H&P History & Physical for Day of: H&P Date: 01/07/25 Chief Complaint Chief Complaint: shortness of breath lower extremity swelling History of Present Illness History of Present Illness: Patient is a 74-year-old female with a past medical history of CHF, COPD, chronic respiratory failure on home oxygen, CAD, valve replacement, CKD, CVA, hypertension presented with worsening shortness of breath and lower extremity edema. She is known to us. Does not appear to be compliant with home medications. I did ask if she is taking her Lasix which she said she did but not at the dose we had discharged her on last time. She was supposed to be on Lasix 60 mg twice a day. Labs/imaging: WBC 3.8, hemoglobin 8.6, platelets 122, sodium 136, potassium 4.1, creatinine 1.22, glucose 102, INR 8.982.32, CT abdomen pelvis CT report shows CHF findings and ascites. Chest x-ray revealed CHF findings. Echo in November 2024 showed ejection fraction of 50 to 55%. Patient was admitted for acute CHF exacerbation and elevated INR. She was given vitamin K in the ER and her INR has responded. We will resume Coumadin tomorrow. Dr. Almanza was consulted, believes ascites related to CHF. He has done a paracentesis and we will send for cytology. She is currently on IV Lasix 40 mg twice a day. Will monitor I's and O's. Restart home medications. Otherwise continue with current treatment plan. Continue closely monitor and follow-up labs/imaging. Time spent for clinical assessment, reviewing labs/imaging, physical exam, decision making and documentation greater than 45 mins. Past Medical History Past Medical History: Arthritis, CHF, COPD, Coronary Artery Disease, CVA, Hypertension, Liver Disease, [place] and Renal Disease Additional Medical History: Coumadin Therapy, Cataracts, TIA, Muscle Weakness, Back Pain, Degenerative Disc Disease, Previous Blood Transfusion Past Surgical History Surgical History: and CABG/Valve Surgery Additional Surgical History: Pacemaker Family History Family Medical History: [place] and Coronary Artery Disease Social History Does patient currently use any type of tobacco product: No Have you used tobacco products in the last 12 months: No Type of Tobacco Use: None Does any household member use tobacco: No Alcohol Use: None Drug Use: None Medications Home Medications: Home Medications Medication Instructions Recorded Confirmed Type amiodarone 200 mg tablet 400 mg PO BID 12/20/2401/06 History levothyroxine 100 mcg tablet 100 mcg PO QDAY 12/20/24 01/06/25 History metoprolol tartrate 25 mg tablet 12.5 mg PO BID 01/06/25 History simvastatin 20 mg tablet 20 mg PO QPM 12/20/24 History spironolactone 25 mg tablet 12.5 mg PO DAILY 12/20/24 01/06/25 History warfarin 5 mg tablet 5 mg PO QDAY 12/20/24 History furosemide 40 mg tablet (Lasix) 60 mg PO DAILY 5 01/06/25 History Allergies Allergies Allergy/AdvReac Type Severity Reaction Status Date / Time No Known Drug Allergies Allergy Unknown Verified 12/28/24 16:54 Labs 01/07/25 05:27 01/07/25 05:27 Labs: Laboratory WBC 3.8 X10^3/uL (3.6-10.0) 01/07/25 05:27 RBC 2.99 X10^6/uL (3.5-5.4) L 01/07/25 05:27 Hgb 8.6 g/dL (12.0-16.0) L 01/07/25 05:27 Hct 26.8 % (36.0-47.0) L 01/07/25 05:27 MCV 89.8 fL (80.0-100.0) 01/07/25 05:27 MCH 28.9 pg (27.0-34.0) 01/07/25 05:27 MCHC 32.2 g/dL (33.0-35.0) L 01/07/25 05:27 RDW 19.6 % (11.6-16.5) H 01/07/25 05:27 Plt Count 122 X10^3/uL (150.0-450.0) L 01/07/25 05:27 MPV 10.3 fL (7.4-11.0) 01/07/25 05:27 Neut % (Auto) 58.7 % (42.0-75.0) 01/07/25 05:27 Lymph % (Auto) 17.6 % (21.0-51.0) L 01/07/25 05:27 [place] % (Auto) 15.8 % (0.0-13.0) H 01/07/25 05:27 Eos % (Auto) 3.5 % (0.9-2.9) H 01/07/25 05:27 Baso % (Auto) 4.4 % (0.2-1.0) H 01/07/25 05:27 Neut # (Auto) 2.3 x10^3/uL (2.2-4.8) 01/07/25 05:27 Lymph # (Auto) 0.7 X10^3/uL (1.3-2.9) L 01/07/25 05:27 [place] # (Auto) 0.6 x10^3/uL (0.3-0.8) 01/07/25 05:27 Eos # (Auto) 0.1 x10^3/uL (0.0-0.2) 01/07/25 05:27 Baso # (Auto) 0.2 X10^3/uL (0.0-0.1) H 01/07/25 05:27 Absolute Nucleated RBC 0.7 /100WBC 01/07/25 05:27 PT 25.6 SECONDS (11.8-14.3) 01/07/25 05:27 INR Target Range - 01/07/25 05:27 INR 2.32 (0.8-1.3) H 01/07/25 05:27 APTT 90.8 SECONDS (22.9-36.5) H 01/06/25 18:22 PTT Comment - 01/06/25 18:22 D-Dimer 0.38 ug/ml (0.0-0.57) 01/06/25 18:22 Sodium 136 mmol/L (136-145) 01/07/25 05:27 Corrected Sodium TNP 01/07/25 05:27 Potassium 4.1 mmol/L (3.5-5.1) 01/07/25 05:27 Chloride 105 mmol/L (98-107) 01/07/25 05:27 Carbon Dioxide 25.1 mmol/L (21-32) 01/07/25 05:27 BUN 26 mg/dL (7-18) H 01/07/25 05:27 Creatinine 1.22 mg/dL (0.55-1.02) H 01/07/25 05:27 Est GFR (MDRD) Af Amer 55 (>60) L 01/07/25 05:27 Est GFR (MDRD) Non-Af 46 (>60) L 01/07/25 05:27 Glucose 102 mg/dL (65-99) H 01/07/25 05:27 Calcium 7.8 mg/dL (8.5-10.1) L 01/07/25 05:27 Corrected Calcium 9.8 mg/dL (8.5-10.1) 01/07/25 05:27 Total Bilirubin 1.00 mg/dL (0.2-1.0) 01/07/25 05:27 AST 37 Units/L (15-37) 01/07/25 05:27 ALT 22 Units/L (12-78) 01/07/25 05:27 Alkaline Phosphatase 124 Units/L (46-116) H 01/07/25 05:27 Creatine Kinase 49 Units/L (26-192) 01/06/25 18:22 Troponin I High Sens 9.8 ng/L (4.0-60.0) 01/06/25 18:22 B-Natriuretic Peptide 292 pg/mL (0-79) H 01/06/25 18:22 Total Protein 4.6 g/dL (6.4-8.2) L 01/07/25 05:27 Albumin 1.5 g/dL (3.4-5.0) L 01/07/25 05:27 Globulin 3.1 g/dL (2.5-4.5) 01/07/25 05:27 Albumin/Globulin Ratio 0.5 Ratio (1.1-2.1) L 01/07/25 05:27 Amylase 89 Units/L (25-115) 01/06/25 18:25 Lipase 54 Units/L (16-77) 01/06/25 18:25 Review of Systems Constitutional: No Symptoms Reported Eyes: No Symptoms Reported ENT: No Symptoms Reported Respiratory: Shortness of Breath Cardiovascular: Edema Gastrointestinal: No Symptoms Reported Genitourinary: No Symptoms Reported Musculoskeletal: No Symptoms Reported Skin: No Symptoms Reported Neurological: No Symptoms Reported Physical Exam Vital Signs: Vital Signs Temperature 97.7 F Temperature 97.4 F Pulse Rate [Right] 76 Pulse Rate [Right] 63 Pulse Rate 67 Pulse Rate 60 Respiratory Rate 20 Respiratory Rate 16 Respiratory Rate 16 Blood Pressure [Right Arm] 106/51 Blood Pressure [Right Arm] 106/54 Blood Pressure 97/52 O2 Sat by Pulse Oximetry 98 O2 Sat by Pulse Oximetry 97 O2 Sat by Pulse Oximetry 95 O2 Sat by Pulse Oximetry 94 Oriented: Normal Eyes: Normal Ear: Normal Nose: Normal Throat: Normal Respiratory: Clear Throughout Cardiovascular: Edema (2+ BLE) : Normal Auscultation: Bowel Sounds: Normal Palpation: Normal Tenderness: Normal Skin: Normal Musculoskeletal: Normal Psychiatric: Normal Mood Description: Calm and Appropriate Affect: Normal Speech Pattern: Clear and Appropriate Assessment/Plan (1) Acute exacerbation of CHF (congestive heart failure): Qualifiers: Heart failure type: unspecified Qualified Code(s): I50.9 - Heart failure, unspecified Status: Acute Plan: IV lasix Monitor I' and O's (2) Anasarca: Status: Acute (3) Ascites: Status: Acute Plan: consult Dr Clark-general surgery (4) Elevated international normalized ratio (INR): Status: Acute Plan: monitor INR, restart coumadin tomorrow (5) COPD (chronic obstructive pulmonary disease): Qualifiers: COPD type: unspecified COPD Qualified Code(s): J44.9 - Chronic obstructive pulmonary disease, unspecified Status: Chronic (6) Atrial fibrillation: Status: None Review H&P Reviewed: Yes Patient was examined?: Yes
[2025-01-07] MEDS: LASIX IVP SCH (17:23)
[2025-01-07] MEDS: ZOCOR TAB 20 MG PO SCH (21:48)
[2025-01-08] MEDS: LOPRESSOR TAB 25 MG PO SCH (01:50)
[2025-01-08 06:16] LABS: COR CA(FOR HYPOALB) 9.5 mg/dL (8.5-10.1); CREATININE 1.18 mg/dL (0.55-1.02); eGFR NON BLACK RACES 47 (>60)
[2025-01-08 06:19] LABS: MEAN PLATELET VOLUME 10.0 fL (7.4-11.0); RED CELL DISTRIBUTION WIDTH 18.5 % (11.6-16.5)
[2025-01-08 06:51] LABS: BAND NEUTROPHILS % 3 % (0-10)
[2025-01-08 06:52] LABS: PLATELET MORPHOLOGY COMMENT NORMAL (NORMAL)
[2025-01-08] MEDS: COUMADIN TAB 5 MG (JANTOVEN) PO SCH (08:16)
[2025-01-08 08:18] LABS: INR 1.46 (0.8-1.3)
--- NOTE | 2025-01-08 11:10 | PCM.PROG ---
Progress Note Progress Note for Day of Date of Exam: 01/08/25 Subjective Subjective: Patient is a 74-year-old female with a past medical history of CHF, COPD, chronic respiratory failure on home oxygen, CAD, valve replacement, CKD, CVA, hypertension admitted for CHF exacerbation and elevated INR. This morning she is resting in bed. No acute events overnight. She reports improvement in her symptoms. Labs/imaging: WBC 4.1, hemoglobin 8.1, platelets 146, sodium 136, potassium 3.7, creatinine 1.18, glucose 93, INR 1.46, Echo in November 2024 showed ejection fraction of 50 to 55%. We will resume Coumadin today. Dr. Almanza was consulted, and patient is s/p paracentesis, fluid cytology and labs pending. Patient has been here multiple times due to lower extremity edema and pain. Will order a CTA aorta with runoff to evaluate any vascular problems. She is currently on IV Lasix 40 mg twice a day. Will monitor I's and O's. Home medications have been resumed. Hold spironolactone due to low blood pressure. Otherwise continue with current treatment plan. Continue closely monitor and follow-up labs/imaging. Time spent for clinical assessment, reviewing labs/imaging, physical exam, decision making and documentation greater than 45 mins. Past Medical Family Social History Allergies: Allergies No Known Drug Allergies Allergy (Unknown, Verified 12/28/24 16:54) Onset Date: 11/23/2014 Review of Systems ROS changes noted: see HPI Vital Signs and I&O's Vital Signs: Vital Signs Temperature 97.5 F Temperature 97.4 F Pulse Rate [Right] 77 Pulse Rate [Right] 62 Respiratory Rate 18 Respiratory Rate 19 Blood Pressure [Right Arm] 87/52 Blood Pressure [Right Arm] 91/53 O2 Sat by Pulse Oximetry 98 O2 Sat by Pulse Oximetry 98 Intake and Output: Intake & Output 01/05/25 01/06/25 01/07/25 01/08/25 23:59 23:59 23:59 23:59 Intake Total 360 / 360 566 / 566 Output Total 1150 / 1150 550 / 550 Balance -790 / -790 Physical Exam Oriented: Normal Eyes: Normal Ear: Normal Nose: Normal Throat: Normal Respiratory: Normal Cardiovascular: Edema (2+ BLE) : Normal Auscultation: Bowel Sounds: Normal Tenderness: Normal Skin: Normal Musculoskeletal: Normal Psychiatric: Normal Mood Description: Calm and Appropriate Affect: Normal Speech Pattern: Clear and Appropriate Laboratory and Diagnostics 01/08/25 05:36 01/08/25 05:36 Labs: 01/07/25 11:50 Peritoneal Fluid - Preliminary Laboratory WBC 4.1 X10^3/uL (3.6-10.0) 01/08/25 05:36 RBC 2.77 X10^6/uL (3.5-5.4) L 01/08/25 05:36 Hgb 8.1 g/dL (12.0-16.0) L 01/08/25 05:36 Hct 23.8 % (36.0-47.0) L 01/08/25 05:36 MCV 86.1 fL (80.0-100.0) 01/08/25 05:36 MCH 29.3 pg (27.0-34.0) 01/08/25 05:36 MCHC 34.0 g/dL (33.0-35.0) 01/08/25 05:36 RDW 18.5 % (11.6-16.5) H 01/08/25 05:36 Plt Count 146 X10^3/uL (150.0-450.0) L 01/08/25 05:36 Plt Count Comment Decreased (ADEQUATE) A 01/08/25 05:36 MPV 10.0 fL (7.4-11.0) 01/08/25 05:36 Neut % (Auto) 60.8 % (42.0-75.0) 01/08/25 05:36 Lymph % (Auto) 18.1 % (21.0-51.0) L 01/08/25 05:36 Duval % (Auto) 14.7 % (0.0-13.0) H 01/08/25 05:36 Eos % (Auto) 3.6 % (0.9-2.9) H 01/08/25 05:36 Baso % (Auto) 2.8 % (0.2-1.0) H 01/08/25 05:36 Neut # (Auto) 2.5 x10^3/uL (2.2-4.8) 01/08/25 05:36 Lymph # (Auto) 0.7 X10^3/uL (1.3-2.9) L 01/08/25 05:36 Duval # (Auto) 0.6 x10^3/uL (0.3-0.8) 01/08/25 05:36 Eos # (Auto) 0.1 x10^3/uL (0.0-0.2) 01/08/25 05:36 Baso # (Auto) 0.1 X10^3/uL (0.0-0.1) 01/08/25 05:36 Absolute Nucleated RBC 0.1 /100WBC 01/08/25 05:36 Total Counted 100 01/08/25 05:36 Neutrophils % (Manual) 72 % (39-76) 01/08/25 05:36 Band Neutrophils % 3 % (0-10) 01/08/25 05:36 Lymphocytes % (Manual) 13 % (13-43) 01/08/25 05:36 Monocytes % (Manual) 11 % (4-9) H 01/08/25 05:36 Eosinophils % (Manual) 1 % (0-6) 01/08/25 05:36 Plt Morphology Comment Normal (NORMAL) 01/08/25 05:36 RBC Morphology Abnormal (NORMAL) A 01/08/25 05:36 Anisocytosis Slight A 01/08/25 05:36 PT 17.9 SECONDS (11.8-14.3) 01/08/25 07:45 INR Target Range - 01/08/25 07:45 INR 1.46 (0.8-1.3) H 01/08/25 07:45 APTT 90.8 SECONDS (22.9-36.5) H 01/06/25 18:22 PTT Comment - 01/06/25 18:22 D-Dimer 0.38 ug/ml (0.0-0.57) 01/06/25 18:22 Sodium 136 mmol/L (136-145) 01/08/25 05:36 Corrected Sodium TNP 01/08/25 05:36 Potassium 3.7 mmol/L (3.5-5.1) 01/08/25 05:36 Chloride 105 mmol/L (98-107) 01/08/25 05:36 Carbon Dioxide 28.9 mmol/L (21-32) 01/08/25 05:36 BUN 24 mg/dL (7-18) H 01/08/25 05:36 Creatinine 1.18 mg/dL (0.55-1.02) H 01/08/25 05:36 Est GFR (MDRD) Af Amer 57 (>60) L 01/08/25 05:36 Est GFR (MDRD) Non-Af 47 (>60) L 01/08/25 05:36 Glucose 93 mg/dL (65-99) 01/08/25 05:36 Calcium 7.4 mg/dL (8.5-10.1) L 01/08/25 05:36 Corrected Calcium 9.5 mg/dL (8.5-10.1) 01/08/25 05:36 Total Bilirubin 1.00 mg/dL (0.2-1.0) 01/08/25 05:36 AST 35 Units/L (15-37) 01/08/25 05:36 ALT 23 Units/L (12-78) 01/08/25 05:36 Alkaline Phosphatase 124 Units/L (46-116) H 01/08/25 05:36 Creatine Kinase 49 Units/L (26-192) 01/06/25 18:22 Troponin I High Sens 9.8 ng/L (4.0-60.0) 01/06/25 18:22 B-Natriuretic Peptide 292 pg/mL (0-79) H 01/06/25 18:22 Total Protein 4.3 g/dL (6.4-8.2) L 01/08/25 05:36 Albumin 1.4 g/dL (3.4-5.0) L 01/08/25 05:36 Globulin 2.9 g/dL (2.5-4.5) 01/08/25 05:36 Albumin/Globulin Ratio 0.5 Ratio (1.1-2.1) L 01/08/25 05:36 Amylase 89 Units/L (25-115) 01/06/25 18:25 Lipase 54 Units/L (16-77) 01/06/25 18:25 Fluid pH 8.0 01/07/25 11:50 Fluid Glucose 118 01/07/25 11:50 Plan (1) Acute exacerbation of CHF (congestive heart failure): Status: Acute Qualifiers: Heart failure type: unspecified Qualified Code(s): I50.9 - Heart failure, unspecified Plan: IV lasix Monitor I' and O's (2) Anasarca: Status: Acute (3) Ascites: Status: Acute Plan: consult Dr Clark-general surgery (4) Elevated international normalized ratio (INR): Status: Acute Plan: monitor INR, restart coumadin tomorrow (5) COPD (chronic obstructive pulmonary disease): Status: Chronic Qualifiers: COPD type: unspecified COPD Qualified Code(s): J44.9 - Chronic obstructive pulmonary disease, unspecified (6) Atrial fibrillation: Status: None
[2025-01-09 05:43] LABS: MEAN PLATELET VOLUME 10.2 fL (7.4-11.0); RED CELL DISTRIBUTION WIDTH 18.3 % (11.6-16.5)
[2025-01-09 05:47] LABS: COR CA(FOR HYPOALB) 9.6 mg/dL (8.5-10.1); CREATININE 1.42 mg/dL (0.55-1.02); eGFR NON BLACK RACES 38 (>60)
[2025-01-09 05:55] LABS: BAND NEUTROPHILS % 3 % (0-10); PLATELET MORPHOLOGY COMMENT NORMAL (NORMAL)
[2025-01-09] MEDS ORDERED: CONSULT PHARMACY - POTASSIUM & MAGNESIUM XX SCH (08:00)
[2025-01-09] MEDS: MAGNESIUM SULFATE 1 GRAM/100 mL PREMIX 1 G/100 ML BAG IV SCH (09:27)
[2025-01-09] MEDS: NS 250 ML IV 250 ML IV ONE (10:14)
--- NOTE | 2025-01-09 10:32 | PCM.PROG ---
Progress Note Progress Note for Day of Date of Exam: 01/09/25 Subjective Subjective: Patient seen at bedside, no acute events overnight. She is currently admitted for CHF exacerbation, ascites and lower extremity edema. Her legs do look better today. She does have a temporary catheter for paracentesis. She reports feeling better. She has had recurrent admissions for CHF exacerbation and lower extremity edema. She states her pain has not been controlled. CTA runoff aorta is pending. Labs/imaging reviewed: - WBC 4.5 hemoglobin 8.1 potassium 3.9 creatinine 1.42 magnesium 1.7 - INR pending Plan: Continue IV Lasix, will change it to once a day. Follow surgery recommendations. Follow-up pending imaging. Follow INR. Follow fluid study results. Patient does have a history of valve replacement. Continue home medications. Replace electrolytes as per protocol. Physical therapy as tolerated. Add tramadol for pain control. Monitor a.m. labs and imaging. Past Medical Family Social History Allergies: Allergies No Known Drug Allergies Allergy (Unknown, Verified 12/28/24 16:54) Onset Date: 11/23/2014 Vital Signs and I&O's Vital Signs: Vital Signs Temperature 98 F Temperature 98.5 F Pulse Rate [Right] 80 Pulse Rate [Right] 75 Pulse Rate [Right] 60 Pulse Rate 75 Respiratory Rate 19 Respiratory Rate 18 Blood Pressure [Right Arm] 99/52 Blood Pressure [Right Arm] 107/59 Blood Pressure [Right Arm] 82/46 O2 Sat by Pulse Oximetry 98 O2 Sat by Pulse Oximetry 98 O2 Sat by Pulse Oximetry 96 Intake and Output: Intake & Output 01/06/25 01/07/25 01/08/25 01/09/25 23:59 23:59 23:59 23:59 Intake Total 360 / 360 1236 / 1236 640 / 640 Output Total 1150 / 1150 1200 / 1200 650 / 650 Balance -790 / -790 36 / 36 -10 / -10 Physical Exam Oriented: Normal Eyes: Normal Ear: Normal Nose: Normal Throat: Normal Respiratory: Generalized and Diminished Cardiovascular: Edema (2+ BLE) Auscultation: Bowel Sounds: Normal Palpation: Normal Tenderness: Normal Skin: Normal Musculoskeletal: Normal Psychiatric: Normal Mood Description: Calm and Appropriate Affect: Normal Speech Pattern: Clear and Appropriate Laboratory and Diagnostics 01/09/25 05:10 01/09/25 05:10 Labs: 01/07/25 11:50 Peritoneal Fluid - Preliminary Laboratory WBC 4.5 X10^3/uL (3.6-10.0) 01/09/25 05:10 RBC 2.82 X10^6/uL (3.5-5.4) L 01/09/25 05:10 Hgb 8.1 g/dL (12.0-16.0) L 01/09/25 05:10 Hct 24.4 % (36.0-47.0) L 01/09/25 05:10 MCV 86.6 fL (80.0-100.0) 01/09/25 05:10 MCH 28.9 pg (27.0-34.0) 01/09/25 05:10 MCHC 33.3 g/dL (33.0-35.0) 01/09/25 05:10 RDW 18.3 % (11.6-16.5) H 01/09/25 05:10 Plt Count 156 X10^3/uL (150.0-450.0) 01/09/25 05:10 Plt Count Comment Adequate (ADEQUATE) 01/09/25 05:10 MPV 10.2 fL (7.4-11.0) 01/09/25 05:10 Neut % (Auto) 60.0 % (42.0-75.0) 01/09/25 05:10 Lymph % (Auto) 16.6 % (21.0-51.0) L 01/09/25 05:10 Frontier % (Auto) 15.9 % (0.0-13.0) H 01/09/25 05:10 Eos % (Auto) 3.9 % (0.9-2.9) H 01/09/25 05:10 Baso % (Auto) 3.6 % (0.2-1.0) H 01/09/25 05:10 Neut # (Auto) 2.7 x10^3/uL (2.2-4.8) 01/09/25 05:10 Lymph # (Auto) 0.8 X10^3/uL (1.3-2.9) L 01/09/25 05:10 Frontier # (Auto) 0.7 x10^3/uL (0.3-0.8) 01/09/25 05:10 Eos # (Auto) 0.2 x10^3/uL (0.0-0.2) 01/09/25 05:10 Baso # (Auto) 0.2 X10^3/uL (0.0-0.1) H 01/09/25 05:10 Absolute Nucleated RBC 0.0 /100WBC 01/09/25 05:10 Total Counted 100 01/09/25 05:10 Neutrophils % (Manual) 73 % (39-76) 01/09/25 05:10 Band Neutrophils % 3 % (0-10) 01/09/25 05:10 Lymphocytes % (Manual) 13 % (13-43) 01/09/25 05:10 Monocytes % (Manual) 9 % (4-9) 01/09/25 05:10 Eosinophils % (Manual) 2 % (0-6) 01/09/25 05:10 Plt Morphology Comment Normal (NORMAL) 01/09/25 05:10 RBC Morphology Abnormal (NORMAL) A 01/09/25 05:10 Anisocytosis Slight A 01/09/25 05:10 PT 17.9 SECONDS (11.8-14.3) 01/08/25 07:45 INR Target Range - 01/08/25 07:45 INR 1.46 (0.8-1.3) H 01/08/25 07:45 APTT 90.8 SECONDS (22.9-36.5) H 01/06/25 18:22 PTT Comment - 01/06/25 18:22 D-Dimer 0.38 ug/ml (0.0-0.57) 01/06/25 18:22 Sodium 137 mmol/L (136-145) 01/09/25 05:10 Corrected Sodium TNP 01/09/25 05:10 Potassium 3.9 mmol/L (3.5-5.1) 01/09/25 05:10 Chloride 105 mmol/L (98-107) 01/09/25 05:10 Carbon Dioxide 32.2 mmol/L (21-32) H 01/09/25 05:10 BUN 24 mg/dL (7-18) H 01/09/25 05:10 Creatinine 1.42 mg/dL (0.55-1.02) H 01/09/25 05:10 Est GFR (MDRD) Af Amer 46 (>60) L 01/09/25 05:10 Est GFR (MDRD) Non-Af 38 (>60) L 01/09/25 05:10 Glucose 106 mg/dL (65-99) H 01/09/25 05:10 Calcium 7.5 mg/dL (8.5-10.1) L 01/09/25 05:10 Corrected Calcium 9.6 mg/dL (8.5-10.1) 01/09/25 05:10 Magnesium 1.7 mg/dL (2.0-2.9) L 01/09/25 05:10 Total Bilirubin 0.80 mg/dL (0.2-1.0) 01/09/25 05:10 AST 32 Units/L (15-37) 01/09/25 05:10 ALT 24 Units/L (12-78) 01/09/25 05:10 Alkaline Phosphatase 131 Units/L (46-116) H 01/09/25 05:10 Creatine Kinase 49 Units/L (26-192) 01/06/25 18:22 Troponin I High Sens 9.8 ng/L (4.0-60.0) 01/06/25 18:22 B-Natriuretic Peptide 292 pg/mL (0-79) H 01/06/25 18:22 Total Protein 4.4 g/dL (6.4-8.2) L 01/09/25 05:10 Albumin 1.4 g/dL (3.4-5.0) L 01/09/25 05:10 Globulin 3.0 g/dL (2.5-4.5) 01/09/25 05:10 Albumin/Globulin Ratio 0.5 Ratio (1.1-2.1) L 01/09/25 05:10 Amylase 89 Units/L (25-115) 01/06/25 18:25 Lipase 54 Units/L (16-77) 01/06/25 18:25 Fluid pH 8.0 01/07/25 11:50 Body Fluid Sodium Source Cancelled 01/07/25 11:50 Fluid Sodium Cancelled 01/07/25 11:50 Fluid Glucose 118 01/07/25 11:50 Body Fluid Amylase Source Cancelled 01/07/25 11:50 Fluid Amylase Cancelled 01/07/25 11:50 Plan (1) Acute exacerbation of CHF (congestive heart failure): Status: Acute Qualifiers: Heart failure type: unspecified Qualified Code(s): I50.9 - Heart failure, unspecified (2) Anasarca: Status: Acute (3) Ascites: Status: Acute Qualifiers: Ascites type: other type Qualified Code(s): R18.8 - Other ascites (4) COPD (chronic obstructive pulmonary disease): Status: Chronic Qualifiers: COPD type: unspecified COPD Qualified Code(s): J44.9 - Chronic obstructive pulmonary disease, unspecified (5) Atrial fibrillation: Status: None Qualifiers: Atrial fibrillation type: unspecified chronic Qualified Code(s): I48.20 - Chronic atrial fibrillation, unspecified (6) Hypomagnesemia: Status: Acute (7) Acute on chronic kidney failure: Status: Acute Qualifiers: Acute renal failure type: unspecified Chronic kidney disease stage: u nspecified stage Qualified Code(s): N17.9 - Acute kidney failure, unspecified; N18.9 - Chronic kidney disease, unspecified (8) Generalized weakness: Status: Chronic (9) Hypotension: Status: Chronic Qualifiers: Hypotension type: idiopathic hypotension Qualified Code(s): I95.0 - Idiopathic hypotension
[2025-01-09 10:40] LABS: INR 1.88 (0.8-1.3)
[2025-01-09] MEDS: ULTRAM PO PRN (15:15)
[2025-01-09] MEDS: LOVENOX INJ 40 MG SYR SC SCH ×2 (15:23→15:50)
[2025-01-10 05:44] LABS: MEAN PLATELET VOLUME 10.1 fL (7.4-11.0); RED CELL DISTRIBUTION WIDTH 18.5 % (11.6-16.5)
[2025-01-10 05:59] LABS: COR CA(FOR HYPOALB) 9.4 mg/dL (8.5-10.1); CREATININE 1.18 mg/dL (0.55-1.02); eGFR NON BLACK RACES 47 (>60)
[2025-01-10 06:08] LABS: INR 2.05 (0.8-1.3)
[2025-01-10] MEDS ORDERED: CONSULT PHARMACY - POTASSIUM & MAGNESIUM XX SCH (07:00)
[2025-01-10] MEDS: OMNIPAQUE 350 mg/mL 100 mL BTL 100 ML ONE (07:04)
[2025-01-10] MEDS: OMNIPAQUE 350 mg/mL 50 mL BTL 50 ML ONE (07:04)
[2025-01-10] MEDS: LASIX IVP SCH (09:29)
[2025-01-10] MEDS: K-DUR TAB 20 MEQ PO SCH (09:30)
[2025-01-10 10:40] VITALS: RESP 20
[2025-01-10 15:59] VITALS: BP 100/55; PULSE 81; TEMP 99; O2SAT 99
--- NOTE | 2025-01-11 07:20 | CT ---
EXAMINATION: CTA AORTA WITH RUNOFF HISTORY: LOWER EXT EDEMA ; . COMPARISON STUDY: CT abdomen and pelvis 01/07/2025 TECHNIQUE: Unenhanced axial images were obtained through the abdomen and pelvis following IV contrast administration. The above CT scan was done with automated exposure control and the mA and kV was adjusted to obtain quality images according to patient size. CT angiography of the aorta with bilateral runoff was performed with maximum intensity projection images as well as volume rendered images on a workstation. Degree of stenosis estimated using data based on NASCET criteria FINDINGS: CT angio abdomen MIP 3D reformat images obtained. Lung bases: Bilateral effusions with atelectasis or pneumonia in the lung bases. Cardiomegaly. Follow-up recommended Liver: No acute findings or focal lesions. Distended hepatic veins and IVC is may be seen with right heart failure. Increased density to the liver could represent technical factors, amiodarone or hemosiderosis. GB/Biliary: No gallstones or dilated ducts Spleen: Normal size and density Pancreas: No acute findings. No pseudocyst or dilated duct Adrenal Glands: No mass Kidneys: No obstructing stone, hydronephrosis or solid-appearing lesions. Abdominal aorta: See below Retroperitoneum: No hemorrhage or adenopathy Bowel: No thickened or dilated loops of bowel, free fluid, free air, pneumatosis or abscess. [id number] amount of stool. No CT evidence for appendicitis, diverticulitis or obstruction. Diffuse anasarca and soft tissue edema. Catheter in the right abdomen may represent dialysis catheter. Osseous: Degenerative changes in the thoracolumbar spine. No acute findings or bony lesions. :Ureters and bladder are unremarkable. No pelvic or adnexal mass noted. Abdominal aorta/runoff: The aorta tapers normally. No dissection or aortic aneurysm. Calcified plaque in the mid to distal aorta. Single bilateral renal arteries with no hemodynamically significant stenosis or poststenotic dilatation. SMA and celiac artery and RYAN are patent with no hemodynamically significant stenosis or poststenotic dilatation. Minimal calcified plaque along the origin of the SMA and celiac. The common iliac arteries are of normal caliber with no hemodynamically significant stenosis. Short segment stenoses in atherosclerotic plaque is noted. The [employer], SFA and profunda are patent with no hemodynamically significant stenosis. Multiple areas of calcified plaque and short segment stenoses noted. Popliteal arteries are patent with atherosclerotic disease and multiple short segment stenoses. No hemodynamically significant stenosis. Three-vessel runoff to both lower extremities. Short segment stenoses and atherosclerotic disease. IMPRESSION: Diffuse anasarca and soft tissue edema. No acute intra-abdominal or intrapelvic process. No CT evidence for appendicitis, diverticulitis or obstruction Small bilateral effusions with atelectasis or pneumonia in the lung bases. Follow-up recommended. No aortic aneurysm or dissection. Three-vessel runoff to the lower extremities. Multiple short segment stenoses and atherosclerotic disease with no hemodynamically significant stenosis. THIS IS AN ELECTRONICALLY VERIFIED FINAL REPORT 01/11/2025 7:16 AM - Electronically signed by Aneudy Murguia MD
--- NOTE | 2025-01-15 10:47 | W.DIS.FURT ---
Summary of Discharge Discharge Summary of Date Date of Exam: 01/10/25 Admission Date Date of Admission: 01/07/25 Admission Diagnosis Patient Problems (Updated 01/09/25 @ 10:28 by Vianney Cisneros MD) Elevated international normalized ratio (INR) (Acute) R79.1 Anasarca (Acute) R60.1 Mild congestive heart failure (Acute) I50.9 Hospital Course: Patient is a 74-year-old female with a past medical history of CHF, COPD, chronic respiratory failure on home oxygen, CAD, valve replacement, CKD, CVA, hypertension presented with worsening shortness of breath and lower extremity edema. She is known to us. She does not appear to be compliant with home medications. Labs/imaging: WBC 3.8, hemoglobin 8.6, platelets 122, sodium 136, potassium 4.1, creatinine 1.22, glucose 102, INR 8.98. CT abdomen pelvis CT report shows CHF findings and ascites. Chest x-ray revealed CHF findings. Echo in November 2024 showed ejection fraction of 50 to 55%. Patient was admitted for acute CHF exacerbation and elevated INR. She was given vitamin K in the ER and her INR has responded. Dr. Almanza was consulted, believes ascites related to CHF. She did have paracentesis. She remained on IV Lasix with good urine output. Her labs are monitored daily and electrolytes replace as needed. Physical therapy was consulted and patient did improve with her ambulation. She was feeling better and stable to be discharged home. She will follow-up with PCP and cardiology as scheduled. She will be discharged with home health services. Vital Signs: Vital Signs (72 hours) 01/07/25 12:00 01/07/25 16:00 01/07/25 19:00 Temperature 97.3 F L 98.1 F Pulse Rate Pulse Rate [Right] 97 H 75 Respiratory Rate 20 19 Blood Pressure [Right Arm] 105/56 98/56 O2 Sat by Pulse Oximetry 97 99 Oxygen Delivery Method Nasal Cannula Nasal Cannula Nasal Cannula Oxygen Flow Rate 2 2 3 FIO2% 01/07/25 20:00 01/07/25 20:25 01/07/25 20:25 Temperature 97.5 F L Pulse Rate 79 Pulse Rate [Right] 82 Respiratory Rate 19 Blood Pressure [Right Arm] 96/51 O2 Sat by Pulse Oximetry 96 98 Oxygen Delivery Method Nasal Cannula Nasal Cannula Oxygen Flow Rate 2 2 FIO2% 28 01/08/25 00:00 01/08/25 04:00 01/08/25 07:00 Temperature 97.6 F 97.4 F L Pulse Rate Pulse Rate [Right] 62 62 Respiratory Rate 19 19 Blood Pressure [Right Arm] 94/52 91/53 O2 Sat by Pulse Oximetry 97 98 Oxygen Delivery Method Nasal Cannula Nasal Cannula Nasal Cannula Oxygen Flow Rate 2 2 3 FIO2% 01/08/25 07:58 01/08/25 08:21 01/08/25 12:00 Temperature 97.5 F L 97.9 F Pulse Rate Pulse Rate [Right] 77 75 Respiratory Rate 18 18 Blood Pressure [Right Arm] 87/52 100/52 O2 Sat by Pulse Oximetry 98 97 Oxygen Delivery Method Nasal Cannula Nasal Cannula Nasal Cannula Oxygen Flow Rate 2 2 2 FIO2% 28 01/08/25 16:00 01/08/25 19:00 01/08/25 20:00 Temperature 98.5 F 98.4 F Pulse Rate Pulse Rate [Right] 75 75 Respiratory Rate 18 18 Blood Pressure [Right Arm] 98/55 94/54 O2 Sat by Pulse Oximetry 97 97 Oxygen Delivery Method Nasal Cannula Nasal Cannula Nasal Cannula Oxygen Flow Rate 2 3 3 FIO2% 01/08/25 21:21 01/09/25 00:00 01/09/25 04:00 Temperature 97.6 F 98.5 F Pulse Rate Pulse Rate [Right] 60 60 Respiratory Rate 18 18 Blood Pressure [Right Arm] 92/50 82/46 O2 Sat by Pulse Oximetry 96 96 Oxygen Delivery Method Nasal Cannula Nasal Cannula Nasal Cannula Oxygen Flow Rate 2 3 3 FIO2% 28 01/09/25 07:00 01/09/25 07:45 01/09/25 09:09 Temperature 98 F Pulse Rate Pulse Rate [Right] 75 Respiratory Rate 19 Blood Pressure [Right Arm] 107/59 O2 Sat by Pulse Oximetry 98 Oxygen Delivery Method Nasal Cannula Nasal Cannula Nasal Cannula Oxygen Flow Rate 2 2 2 FIO2% 28 01/09/25 09:09 01/09/25 09:25 01/09/25 12:00 Temperature 97.9 F Pulse Rate 75 Pulse Rate [Right] 80 75 Respiratory Rate 20 Blood Pressure [Right Arm] 99/52 110/59 O2 Sat by Pulse Oximetry 98 99 Oxygen Delivery Method Nasal Cannula Oxygen Flow Rate 2 FIO2% 01/09/25 15:15 01/09/25 16:00 01/09/25 16:15 Temperature 96.9 F L Pulse Rate Pulse Rate [Right] 75 Respiratory Rate 20 21 20 Blood Pressure [Right Arm] 104/72 O2 Sat by Pulse Oximetry 98 Oxygen Delivery Method Nasal Cannula Oxygen Flow Rate 2 FIO2% 01/09/25 19:00 01/09/25 19:44 01/09/25 21:00 Temperature 97.4 F L Pulse Rate Pulse Rate [Right] 81 Respiratory Rate 21 Blood Pressure [Right Arm] 96/50 O2 Sat by Pulse Oximetry 98 Oxygen Delivery Method Nasal Cannula Nasal Cannula Nasal Cannula Oxygen Flow Rate 2 2 2 FIO2% 28 01/09/25 21:00 01/09/25 21:10 01/10/25 00:00 Temperature 98.1 F Pulse Rate 80 Pulse Rate [Right] 61 Respiratory Rate 18 Blood Pressure [Right Arm] 106/53 97/50 O2 Sat by Pulse Oximetry 96 97 Oxygen Delivery Method Nasal Cannula Oxygen Flow Rate 2 FIO2% 01/10/25 04:00 01/10/25 08:49 01/10/25 08:49 Temperature 98.0 F Pulse Rate 76 Pulse Rate [Right] 63 Respiratory Rate 18 Blood Pressure [Right Arm] 98/59 O2 Sat by Pulse Oximetry 96 96 Oxygen Delivery Method Nasal Cannula Nasal Cannula Oxygen Flow Rate 2 2 FIO2% 28 Labs: Laboratory Last Values WBC 5.0 X10^3/uL (3.6-10.0) 01/10/25 05:08 RBC 2.88 X10^6/uL (3.5-5.4) L 01/10/25 05:08 Hgb 8.4 g/dL (12.0-16.0) L 01/10/25 05:08 Hct 24.9 % (36.0-47.0) L 01/10/25 05:08 MCV 86.7 fL (80.0-100.0) 01/10/25 05:08 MCH 29.0 pg (27.0-34.0) 01/10/25 05:08 MCHC 33.5 g/dL (33.0-35.0) 01/10/25 05:08 RDW 18.5 % (11.6-16.5) H 01/10/25 05:08 Plt Count 162 X10^3/uL (150.0-450.0) 01/10/25 05:08 Plt Count Comment Adequate (ADEQUATE) 01/09/25 05:10 MPV 10.1 fL (7.4-11.0) 01/10/25 05:08 Neut % (Auto) 65.0 % (42.0-75.0) 01/10/25 05:08 Lymph % (Auto) 12.8 % (21.0-51.0) L 01/10/25 05:08 Charlton % (Auto) 14.8 % (0.0-13.0) H 01/10/25 05:08 Eos % (Auto) 3.8 % (0.9-2.9) H 01/10/25 05:08 Baso % (Auto) 3.6 % (0.2-1.0) H 01/10/25 05:08 Neut # (Auto) 3.2 x10^3/uL (2.2-4.8) 01/10/25 05:08 Lymph # (Auto) 0.6 X10^3/uL (1.3-2.9) L 01/10/25 05:08 Charlton # (Auto) 0.7 x10^3/uL (0.3-0.8) 01/10/25 05:08 Eos # (Auto) 0.2 x10^3/uL (0.0-0.2) 01/10/25 05:08 Baso # (Auto) 0.2 X10^3/uL (0.0-0.1) H 01/10/25 05:08 Absolute Nucleated RBC 0.1 /100WBC 01/10/25 05:08 Total Counted 100 01/09/25 05:10 Neutrophils % (Manual) 73 % (39-76) 01/09/25 05:10 Band Neutrophils % 3 % (0-10) 01/09/25 05:10 Lymphocytes % (Manual) 13 % (13-43) 01/09/25 05:10 Monocytes % (Manual) 9 % (4-9) 01/09/25 05:10 Eosinophils % (Manual) 2 % (0-6) 01/09/25 05:10 Plt Morphology Comment Normal (NORMAL) 01/09/25 05:10 RBC Morphology Abnormal (NORMAL) A 01/09/25 05:10 Anisocytosis Slight A 01/09/25 05:10 PT 23.3 SECONDS (11.8-14.3) 01/10/25 05:08 INR Target Range - 01/10/25 05:08 INR 2.05 (0.8-1.3) H 01/10/25 05:08 APTT 90.8 SECONDS (22.9-36.5) H 01/06/25 18:22 PTT Comment - 01/06/25 18:22 D-Dimer 0.38 ug/ml (0.0-0.57) 01/06/25 18:22 Sodium 135 mmol/L (136-145) L 01/10/25 05:08 Corrected Sodium TNP 01/10/25 05:08 Potassium 3.5 mmol/L (3.5-5.1) 01/10/25 05:08 Chloride 103 mmol/L (98-107) 01/10/25 05:08 Carbon Dioxide 30.0 mmol/L (21-32) 01/10/25 05:08 BUN 26 mg/dL (7-18) H 01/10/25 05:08 Creatinine 1.18 mg/dL (0.55-1.02) H 01/10/25 05:08 Est GFR (MDRD) Af Amer 57 (>60) L 01/10/25 05:08 Est GFR (MDRD) Non-Af 47 (>60) L 01/10/25 05:08 Glucose 105 mg/dL (65-99) H 01/10/25 05:08 Calcium 7.4 mg/dL (8.5-10.1) L 01/10/25 05:08 Corrected Calcium 9.4 mg/dL (8.5-10.1) 01/10/25 05:08 Magnesium 2.0 mg/dL (2.0-2.9) 01/10/25 05:08 Total Bilirubin 0.90 mg/dL (0.2-1.0) 01/10/25 05:08 AST 40 Units/L (15-37) H 01/10/25 05:08 ALT 26 Units/L (12-78) 01/10/25 05:08 Alkaline Phosphatase 135 Units/L (46-116) H 01/10/25 05:08 Creatine Kinase 49 Units/L (26-192) 01/06/25 18:22 Troponin I High Sens 9.8 ng/L (4.0-60.0) 01/06/25 18:22 B-Natriuretic Peptide 292 pg/mL (0-79) H 01/06/25 18:22 Total Protein 4.6 g/dL (6.4-8.2) L 01/10/25 05:08 Albumin 1.5 g/dL (3.4-5.0) L 01/10/25 05:08 Globulin 3.1 g/dL (2.5-4.5) 01/10/25 05:08 Albumin/Globulin Ratio 0.5 Ratio (1.1-2.1) L 01/10/25 05:08 Amylase 89 Units/L (25-115) 01/06/25 18:25 Lipase 54 Units/L (16-77) 01/06/25 18:25 Fluid pH 8.0 01/07/25 11:50 Body Fluid Sodium Source Cancelled 01/07/25 11:50 Fluid Sodium Cancelled 01/07/25 11:50 Fluid Glucose 118 01/07/25 11:50 Body Fluid Amylase Source Cancelled 01/07/25 11:50 Fluid Amylase Cancelled 01/07/25 11:50 Reason For Visit: MILD CHF, ANASARCA, ASCITES, ELEVATED INR Discharge Diagnosis All Active Problems (Updated 01/09/25 @ 10:28 by Vianney Cisneros MD) Hypomagnesemia (Acute) Ascites (Acute) Elevated international normalized ratio (INR) (Acute) Anasarca (Acute) Mild congestive heart failure (Acute) Mild congestive heart failure (Acute) Hypokalemia (Acute) Acute on chronic kidney failure (Acute) Respiratory failure (Acute) Acute exacerbation of CHF (congestive heart failure) (Acute) Generalized weakness (Chronic) SOB (shortness of breath) (Acute) Hypotension (Chronic) Acute exacerbation of CHF (congestive heart failure) (Acute) Edema, peripheral (Chronic) Pulmonary edema (Acute) Acute exacerbation of CHF (congestive heart failure) (Acute) Hyperlipidemia (Acute) Hypothyroid (Acute) Hypertension (Chronic) COPD (chronic obstructive pulmonary disease) (Chronic) A-fib (Chronic) Acute exacerbation of CHF (congestive heart failure) (Acute) Mild congestive heart failure (Acute) COPD (chronic obstructive pulmonary disease) (Chronic) Non-healing skin lesion of nose (Acute) Mechanical heart valve present (Chronic) Shortness of breath (Acute) Hypoalbuminemia (Acute) Need for shingles vaccine (Acute) Shingles (Acute) Bleeding from wound (Acute) Anticoagulated on Coumadin (Acute) Bronchopneumonia (Acute) Atrial fibrillation with RVR (Acute) Hyponatremia (Acute) CHF (congestive heart failure) (Chronic) History of CVA (cerebrovascular accident) (Chronic) DDD (degenerative disc disease) (Chronic) Back pain (Chronic) Hx of myocardial infarction (Chronic) Hypotension (Acute) Plan of Treatment: Continue with present treatment and follow up plan. Pt is to keep follow up appointment as instructed and take medications as ordered. Discharge Medications Discharge Medications: No Known Drug Allergies Allergy (Unknown, Verified 12/28/24 16:54) CONTINUE taking the following medications furosemide 40 mg tablet (Lasix) 60 mg PO DAILY 01/06/25 [History] Discharge Plan Discharge Plan Hospital Course: Patient is a 74-year-old female with a past medical history of CHF, COPD, chr onic respiratory failure on home oxygen, CAD, valve replacement, CKD, CVA, hypertension presented with worsening shortness of breath and lower extremity edema. She is known to us. She does not appear to be compliant with home medications. Labs/imaging: WBC 3.8, hemoglobin 8.6, platelets 122, sodium 136, potassium 4.1, creatinine 1.22, glucose 102, INR 8.98. CT abdomen pelvis CT report shows CHF findings and ascites. Chest x-ray revealed CHF findings. Echo in November 2024 showed ejection fraction of 50 to 55%. Patient was admitted for acute CHF exacerbation and elevated INR. She was given vitamin K in the ER and her INR has responded. Dr. Almanza was consulted, believes ascites related to CHF. She did have paracentesis. She remained on IV Lasix with good urine output. Her labs are monitored daily and electrolytes replace as needed. Physical therapy was consulted and patient did improve with her ambulation. She was feeling better and stable to be discharged home. She will follow-up with PCP and cardiology as scheduled. She will be discharged with home health services. Patient Disposition: HOME HEALTH SERVICE Condition: Stable Health Concerns: Post Hospitalization: new medications and changes needed to prevent readmission or further decline. Pt educated and given instructions on all concerns. Care Plan Goals: Problem: Pain/Alteration in Comfort Goal: Improve/ Resolve Pain; Achieve Pain Tolerance Instructions: Take pain medications as prescribed. Contact your primary care provider if your pain is unrelieved or worsens. Follow up with primary care provider as directed. Plan of Treatment: Continue with present treatment and follow up plan. Pt is to keep follow up appointment as instructed and take medications as ordered. Prescription drug monitoring program results: PDMP reviewed and no concerns identified Prescriptions: Continued amiodarone 200 mg tablet 400 mg PO BID spironolactone 25 mg tablet 12.5 mg PO DAILY levothyroxine 100 mcg tablet 100 mcg PO QDAY simvastatin 20 mg tablet 20 mg PO QPM warfarin 5 mg tablet 5 mg PO QDAY metoprolol tartrate 25 mg tablet 12.5 mg PO BID potassium chloride [K-Tab] 20 mEq tablet extended release 20 meq PO QDAY MDD 1 Qty: 14 0RF Changed furosemide [Lasix] 40 mg tablet 40 mg PO DAILY 30 Days Qty: 30 0RF Follow ups/Referrals Follow ups/Referrals: KAJAL THOMAS [STAFF PHYSICIAN, MEDICAL] - 01/19/25 8:45 am Instructions Instructions: Getting a Catheter to Drain Extra Fluid (Ascites) From the Belly: What to Expect, Extra Fluid in the Belly (Ascites): What to Know Stand Alone Forms: Excuse From Work or School, Find Help Web Site, [facility] Follow Up [facility] Print Language: TELUGU
== END 2025-01-10 18:00 | disposition home health service (06) ==
LOC: ER 16:51 → MED/SURG 16:51
PROVIDERS: ADMIT Family Medicine; ATTEND Family Medicine
DX: J44.9 Chronic obstructive pulmonary disease, unspecified; I13.0 Hypertensive heart and chronic kidney disease with heart failure and stage 1 through stage 4 chronic kidney disease, or unspecified chronic kidney disease; Z60.8 Other problems related to social environment; I48.20 Chronic atrial fibrillation, unspecified; N17.8 Other acute kidney failure; I25.810 Atherosclerosis of coronary artery bypass graft(s) without angina pectoris; R73.09 Other abnormal glucose; E83.51 Hypocalcemia; I50.89 Other heart failure; Z65.8 Other specified problems related to psychosocial circumstances; Z86.73 Personal history of transient ischemic attack (TIA), and cerebral infarction without residual deficits; I25.2 Old myocardial infarction; R53.1 Weakness; J90 Pleural effusion, not elsewhere classified; Z95.2 Presence of prosthetic heart valve; Z79.01 Long term (current) use of anticoagulants; E83.42 Hypomagnesemia; R79.1 Abnormal coagulation profile; Z95.0 Presence of cardiac pacemaker; R06.02 Shortness of breath; Z99.81 Dependence on supplemental oxygen; N18.9 Chronic kidney disease, unspecified

== ENCOUNTER 2025-01-17 20:06 | Observation (INO) ==
[2025-01-17] MEDS ORDERED: DUONEB 0.5 MG/3 MG (3 mL) NEB ONE ×2 (20:28→22:01)
[2025-01-17 20:41] LABS: MEAN PLATELET VOLUME 10.0 fL (7.4-11.0); RED CELL DISTRIBUTION WIDTH 18.3 % (11.6-16.5)
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
[2025-01-17 20:46] LABS: COR CA(FOR HYPOALB) 9.2 mg/dL (8.5-10.1); CREATININE 1.74 mg/dL (0.55-1.02); eGFR NON BLACK RACES 30 (>60)
[2025-01-17 20:47] LABS: ABG BASE EXCESS 0.2 mmol/L (-2.0-2.0); ABG HCO3 23.3 mmol/L (22-26); ABG OXYGEN SATURATION 99.0 % (90-100); ABG PCO2 32.0 mmHg (35.0-45.0); ABG PH 7.470 (7.35-7.45)
[2025-01-17 20:48] LABS: ABG ALLEN TEST POS; ABG PO2 130.0 mmHg (80.0-100.0)
[2025-01-17] MEDS: DUONEB 0.5 MG/3 MG (3 mL) NEB ONE ×2 (21:30→21:51)
[2025-01-18] MEDS ORDERED: DUONEB 0.5 MG/3 MG (3 mL) NEB ONE (00:59)
[2025-01-18] MEDS: DUONEB 0.5 MG/3 MG (3 mL) NEB ONE (01:01)
[2025-01-18] MEDS ORDERED: ZOFRAN INJ 4 MG VIAL IVP PRN (01:15)
[2025-01-18] MEDS ORDERED: TYLENOL 325 MG TAB PO PRN (01:15)
[2025-01-18] MEDS: LASIX IVP STA (01:35)
[2025-01-18 01:38] LABS: BLOOD/HEMOGLOBIN,URINE NEGATIVE (NEGATIVE); LEUKOCYTE ESTERASE ,URINE NEGATIVE (NEGATIVE); NITRITES,URINE NEGATIVE (NEGATIVE)
[2025-01-18 01:54] LABS: APPEARANCE,URINE CLEAR (CLEAR)
[2025-01-18 01:56] LABS: HYALINE CASTS, URINE FEW /LPF (NEGATIVE); SQUAMOUS EPITHELIAL CELL,UR RARE /HPF (NEGATIVE)
[2025-01-18] MEDS ORDERED: CONSULT PHARMACY - POTASSIUM & MAGNESIUM XX SCH ×2 (02:00→07:00)
[2025-01-18] MEDS: K-DUR TAB 20 MEQ PO ONE (02:26)
[2025-01-18 04:34] VITALS: BMI 27.1
[2025-01-18 05:41] LABS: MEAN PLATELET VOLUME 9.8 fL (7.4-11.0); RED CELL DISTRIBUTION WIDTH 18.8 % (11.6-16.5)
[2025-01-18 05:52] LABS: COR CA(FOR HYPOALB) 9.5 mg/dL (8.5-10.1); CREATININE 1.77 mg/dL (0.55-1.02); eGFR NON BLACK RACES 30 (>60)
[2025-01-18] MEDS: DUONEB 0.5 MG/3 MG (3 mL) NEB SCH (07:23)
[2025-01-18] MEDS: PULMICORT NEB TX 0.5 MG NEB SCH (07:23)
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
[2025-01-18] MEDS: KLOR-CON 10 MEQ TAB PO ONE (08:53)
[2025-01-18] MEDS ORDERED: PHARMACY CONSULT XX SCH (10:00)
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
[2025-01-18 10:25] LABS: INR 3.63 (0.8-1.3)
[2025-01-18] MEDS: CORDARONE TAB 200 MG PO SCH (10:49)
[2025-01-18] MEDS: LOPRESSOR TAB 25 MG PO SCH (21:07)
[2025-01-18] MEDS: ZOCOR TAB 20 MG PO SCH (21:08)
[2025-01-19 06:03] LABS: INR 4.81 (0.8-1.3)
[2025-01-19 06:08] LABS: COR CA(FOR HYPOALB) 9.5 mg/dL (8.5-10.1); COR NA(FOR HYPERGLY) 133.0 mmol/L (136-145); CREATININE 1.8 mg/dL (0.55-1.02); eGFR NON BLACK RACES 29.0 (>60)
[2025-01-19 06:39] LABS: MEAN PLATELET VOLUME 10.4 fL (7.4-11.0); RED CELL DISTRIBUTION WIDTH 18.5 % (11.6-16.5)
[2025-01-19 06:41] LABS: BAND NEUTROPHILS % 1 % (0-10); BASOPHILS % (MANUAL) 4 % (0-1); PLATELET MORPHOLOGY COMMENT NORMAL (NORMAL)
[2025-01-19 08:08] VITALS: BP 107/55; RESP 20; TEMP 98
[2025-01-19] MEDS: ALDACTONE TAB 25 MG PO SCH (09:41)
[2025-01-19] MEDS: PULMICORT NEB TX 0.5 MG NEB ONE (09:44)
[2025-01-19] MEDS: LASIX IVP SCH (09:44)
[2025-01-19] MEDS: DUONEB 0.5 MG/3 MG (3 mL) NEB ONE (09:45)
[2025-01-19 09:59] VITALS: PULSE 87; O2SAT 92
[2025-01-19] MEDS: LASIX PO ONE (10:36)
== END 2025-01-19 14:55 | disposition home health service (06) ==
LOC: SUPCPDRO → ER 20:06 → INTOOBSV 01-18 01:14 → MED/SURG 01-18 01:14
PROVIDERS: ADMIT Family Medicine; ATTEND Internal Medicine
DX: R26.89 Other abnormalities of gait and mobility; I25.810 Atherosclerosis of coronary artery bypass graft(s) without angina pectoris; Z95.5 Presence of coronary angioplasty implant and graft; Z95.2 Presence of prosthetic heart valve; Z79.01 Long term (current) use of anticoagulants; I25.2 Old myocardial infarction; R41.0 Disorientation, unspecified; N18.31 Chronic kidney disease, stage 3a; Y92.000 Kitchen of unspecified non-institutional (private) residence as the place of occurrence of the external cause; X02.1XXA Exposure to smoke in controlled fire in building or structure, initial encounter; J44.9 Chronic obstructive pulmonary disease, unspecified; T59.811A Toxic effect of smoke, accidental (unintentional), initial encounter; X58.XXXA Exposure to other specified factors, initial encounter; N17.8 Other acute kidney failure; S41.111A Laceration without foreign body of right upper arm, initial encounter; I95.89 Other hypotension; Z86.73 Personal history of transient ischemic attack (TIA), and cerebral infarction without residual deficits; I50.89 Other heart failure; R06.02 Shortness of breath; I48.20 Chronic atrial fibrillation, unspecified; I13.0 Hypertensive heart and chronic kidney disease with heart failure and stage 1 through stage 4 chronic kidney disease, or unspecified chronic kidney disease; Z99.81 Dependence on supplemental oxygen